=== PATIENT | female | born 1940 | race Caucasian/White ===

== ENCOUNTER 2016-07-21 08:21 | Outpatient (CLI) | payer MEDICARE, MEDICAID | END 2016-07-21 08:22 | disposition home or self-care (01) | DX: J45.909 Unspecified asthma, uncomplicated (principal); R06.09 Other forms of dyspnea ==

== ENCOUNTER 2016-07-22 09:56 | Outpatient (CLI) | payer MEDICARE, MEDICAID | END 2016-07-22 09:57 | disposition home or self-care (01) | DX: I50.9 Heart failure, unspecified (principal); I51.7 Cardiomegaly ==

== ENCOUNTER 2016-07-30 11:01 | Outpatient (CLI) | payer MEDICARE, MEDICAID | END 2016-07-30 11:02 | disposition home or self-care (01) | DX: I65.22 Occlusion and stenosis of left carotid artery (principal) ==

== ENCOUNTER 2016-08-17 | Outpatient (CLI) | payer MEDICARE, MEDICAID | END 2016-08-17 11:56 | disposition critical access hospital (66) | CPT/HCPCS: A0425; A0429 ==

== ENCOUNTER 2016-08-17 12:15 | Emergency (ER) | payer MEDICARE, MEDICAID | END 2016-08-17 14:43 | disposition home or self-care (01) | DX: S62.644A Nondisplaced fracture of proximal phalanx of right ring finger, initial encounter for closed fracture (principal); W01.0XXA Fall on same level from slipping, tripping and stumbling without subsequent striking against object, initial encounter; Y92.009 Unspecified place in unspecified non-institutional (private) residence as the place of occurrence of the external cause; Z79.82 Long term (current) use of aspirin; Z87.891 Personal history of nicotine dependence ==

== ENCOUNTER 2016-09-07 | Outpatient (CLI) | payer MEDICARE, MEDICAID | END 2016-09-07 10:16 | disposition critical access hospital (66) | DX: M25.561 Pain in right knee (principal) | CPT/HCPCS: A0425; A0429 ==

== ENCOUNTER 2016-09-07 10:17 | Emergency (ER) | payer MEDICARE, MEDICAID ==
[2016-09-07] MEDS ORDERED: ACETAMINOPHEN 325 MG TABLET PO STA (11:30)
[2016-09-07] MEDS ORDERED: ACETAMINOPHEN 325 MG TABLET PO ONE (11:39)
[2016-09-07] MEDS ORDERED: KETOROLAC 60 MG/2 ML VIAL IM STA (11:55)
[2016-09-07] MEDS ORDERED: KETOROLAC 30 MG/ML VIAL ONE (12:51)
== END 2016-09-07 14:04 | disposition home or self-care (01) ==
DX: M25.561 Pain in right knee (principal); I10 Essential (primary) hypertension; Z79.82 Long term (current) use of aspirin; Z87.891 Personal history of nicotine dependence

== ENCOUNTER 2016-09-08 | Outpatient (CLI) | payer MEDICARE, MEDICAID | END 2016-09-08 02:27 | disposition critical access hospital (66) | CPT/HCPCS: A0425; A0429 ==

== ENCOUNTER 2016-09-08 02:42 | Emergency (ER) | payer MEDICARE, MEDICAID ==
[2016-09-08] MEDS ORDERED: KETOROLAC 60 MG/2 ML VIAL IM STA ×2 (04:42→04:44)
[2016-09-08] MEDS ORDERED: KETOROLAC 30 MG/ML VIAL ONE (04:56)
== END 2016-09-08 10:05 | disposition home or self-care (01) ==
DX: S82.831A Other fracture of upper and lower end of right fibula, initial encounter for closed fracture (principal); S92.511A Displaced fracture of proximal phalanx of right lesser toe(s), initial encounter for closed fracture; W22.8XXA Striking against or struck by other objects, initial encounter; Y92.003 Bedroom of unspecified non-institutional (private) residence as the place of occurrence of the external cause; I10 Essential (primary) hypertension; E78.00 Pure hypercholesterolemia, unspecified; I25.10 Atherosclerotic heart disease of native coronary artery without angina pectoris; Z86.73 Personal history of transient ischemic attack (TIA), and cerebral infarction without residual deficits; F03.90 Unspecified dementia, unspecified severity, without behavioral disturbance, psychotic disturbance, mood disturbance, and anxiety; Z79.82 Long term (current) use of aspirin; Z87.891 Personal history of nicotine dependence

== ENCOUNTER 2016-09-10 16:15 | Outpatient (CLI) | payer MEDICARE, MEDICAID | END 2016-09-10 16:16 | disposition home or self-care (01) | DX: N39.0 Urinary tract infection, site not specified (principal) ==

== ENCOUNTER 2016-11-10 12:16 | Outpatient (CLI) | payer MEDICARE, MEDICAID | END 2016-11-10 12:17 | disposition critical access hospital (66) | DX: Z03.89 Encounter for observation for other suspected diseases and conditions ruled out (principal); Z79.01 Long term (current) use of anticoagulants; W01.10XA Fall on same level from slipping, tripping and stumbling with subsequent striking against unspecified object, initial encounter; Z91.81 History of falling; Y92.191 Dining room in other specified residential institution as the place of occurrence of the external cause | CPT/HCPCS: A0425; A0429 ==

== ENCOUNTER 2016-11-10 12:37 | Emergency (ER) | payer MEDICARE, MEDICAID ==
[2016-11-10] MEDS ORDERED: traMADol 50 MG TABLET PO STA (12:45)
[2016-11-10] MEDS ORDERED: traMADol 50 MG TABLET PO ONE (12:57)
== END 2016-11-10 14:13 | disposition home or self-care (01) ==
DX: S09.90XA Unspecified injury of head, initial encounter (principal); W01.10XA Fall on same level from slipping, tripping and stumbling with subsequent striking against unspecified object, initial encounter; Y92.9 Unspecified place or not applicable; G89.29 Other chronic pain; M79.604 Pain in right leg; Z86.73 Personal history of transient ischemic attack (TIA), and cerebral infarction without residual deficits; Z79.02 Long term (current) use of antithrombotics/antiplatelets; I10 Essential (primary) hypertension; I25.10 Atherosclerotic heart disease of native coronary artery without angina pectoris; J44.9 Chronic obstructive pulmonary disease, unspecified; F03.90 Unspecified dementia, unspecified severity, without behavioral disturbance, psychotic disturbance, mood disturbance, and anxiety; Z79.899 Other long term (current) drug therapy; Z79.82 Long term (current) use of aspirin; Z87.891 Personal history of nicotine dependence
CPT/HCPCS: 70450; 99283; A9270

== ENCOUNTER 2016-11-18 21:34 | Outpatient (CLI) | payer MEDICARE, MEDICAID | END 2016-11-18 21:35 | disposition home or self-care (01) | DX: M79.89 Other specified soft tissue disorders (principal) ==

== ENCOUNTER 2016-11-24 10:30 | Outpatient (CLI) | payer MEDICARE, MEDICAID ==
[2016-11-24 13:14] LABS: BASOPHILS # (AUTO) 0.1 10^3/uL (0.0-0.1); BASOPHILS % (AUTO) 0.3 %; EOSINOPHILS # (AUTO) 0.3 10^3/uL (0.0-0.7); EOSINOPHILS % (AUTO) 1.7 %; HCT - HEMATOCRIT 32.9 % (37.0-47.0); HGB - HEMOGLOBIN 10.8 g/dL (12.0-16.0); LYMPHOCYTES # (AUTO) 1.6 10^3/uL (1.5-3.5); LYMPHOCYTES % (AUTO) 10.5 %; MEAN CORPUSCULAR HEMOGLOBIN 29.1 pg (27.0-31.0); MEAN CORPUSCULAR HGB CONC 32.9 g/dL (32.0-36.0); MEAN CORPUSCULAR VOLUME 88.6 fL (81.0-99.0); MEAN PLATELET VOLUME 9.2 fL (7.9-10.8); MONOCYTES # (AUTO) 0.7 10^3/uL (0.0-1.0); MONOCYTES % (AUTO) 4.7 %; NEUTROPHILS # (AUTO) 12.4 10^3/uL (1.5-6.6); NEUTROPHILS % (AUTO) 82.8 %; RED BLOOD COUNT 3.71 10^6/uL (4.20-5.40); RED CELL DISTRIBUTION WIDTH 15.7 % (12.0-15.0)
[2016-11-24 13:38] LABS: ALBUMIN/GLOBULIN RATIO 1.6 (1.0-2.2); BILIRUBIN,TOTAL 0.6 mg/dL (0.2-1.0); CALCIUM 9.5 mg/dL (8.5-10.3); CREATININE 1.2 mg/dL (0.4-1.0); POTASSIUM 4.1 mmol/L (3.5-5.0); TOTAL PROTEIN 6.3 g/dL (6.7-8.2)
== END 2016-11-24 10:31 | disposition home or self-care (01) ==
LOC: LAB.WCP 10:30
PROVIDERS: ATTEND Family Medicine
DX: M79.89 Other specified soft tissue disorders (principal); R06.02 Shortness of breath
CPT/HCPCS: 36415; 80053; 83880; 85025

== ENCOUNTER 2017-01-03 10:40 | Outpatient (CLI) | payer MEDICARE, MEDICAID ==
[2017-01-03 14:25] LABS: BASOPHILS # (AUTO) 0.1 10^3/uL (0.0-0.1); BASOPHILS % (AUTO) 0.4 %; EOSINOPHILS # (AUTO) 0.3 10^3/uL (0.0-0.7); EOSINOPHILS % (AUTO) 2.1 %; HCT - HEMATOCRIT 34.1 % (37.0-47.0); LYMPHOCYTES # (AUTO) 1.6 10^3/uL (1.5-3.5); MEAN CORPUSCULAR HEMOGLOBIN 28.4 pg (27.0-31.0); MEAN CORPUSCULAR HGB CONC 32.1 g/dL (32.0-36.0); MEAN CORPUSCULAR VOLUME 88.2 fL (81.0-99.0); MEAN PLATELET VOLUME 8.5 fL (7.9-10.8); MONOCYTES # (AUTO) 0.8 10^3/uL (0.0-1.0); MONOCYTES % (AUTO) 5.3 %; NEUTROPHILS # (AUTO) 11.9 10^3/uL (1.5-6.6); NEUTROPHILS % (AUTO) 81.2 %; RED BLOOD COUNT 3.86 10^6/uL (4.20-5.40); RED CELL DISTRIBUTION WIDTH 15.5 % (12.0-15.0); UNCORRECTED WHITE BLOOD COUNT 14.7 x10^3/uL; WHITE BLOOD COUNT 14.7 x10^3/uL (4.8-10.8)
[2017-01-03 15:01] LABS: ALBUMIN/GLOBULIN RATIO 1.3 (1.0-2.2); BILIRUBIN,TOTAL 0.6 mg/dL (0.2-1.0); CALCIUM 9.6 mg/dL (8.5-10.3); CREATININE 1.3 mg/dL (0.4-1.0); POTASSIUM 4.3 mmol/L (3.5-5.0); TOTAL PROTEIN 6.7 g/dL (6.7-8.2)
== END 2017-01-03 10:41 | disposition home or self-care (01) ==
LOC: LAB.N 10:40
PROVIDERS: ATTEND Family Medicine
DX: F88 Other disorders of psychological development (principal)
CPT/HCPCS: 36415; 80053; 85025

== ENCOUNTER 2017-01-17 15:21 | Outpatient (CLI) | payer MEDICARE, MEDICAID ==
[2017-01-17 12:44] LABS: CALCIUM 9.4 mg/dL (8.5-10.3); CREATININE 1.4 mg/dL (0.4-1.0); POTASSIUM 4.1 mmol/L (3.5-5.0)
[2017-01-17 12:47] LABS: BASOPHILS # (AUTO) 0.1 10^3/uL (0.0-0.1); BASOPHILS % (AUTO) 0.5 %; EOSINOPHILS # (AUTO) 0.5 10^3/uL (0.0-0.7); EOSINOPHILS % (AUTO) 3.8 %; HCT - HEMATOCRIT 34.4 % (37.0-47.0); HGB - HEMOGLOBIN 11.1 g/dL (12.0-16.0); LYMPHOCYTES # (AUTO) 1.9 10^3/uL (1.5-3.5); LYMPHOCYTES % (AUTO) 14.6 %; MEAN CORPUSCULAR HEMOGLOBIN 28.2 pg (27.0-31.0); MEAN CORPUSCULAR HGB CONC 32.2 g/dL (32.0-36.0); MEAN CORPUSCULAR VOLUME 87.6 fL (81.0-99.0); MEAN PLATELET VOLUME 8.5 fL (7.9-10.8); MONOCYTES # (AUTO) 0.9 10^3/uL (0.0-1.0); MONOCYTES % (AUTO) 7.1 %; NEUTROPHILS # (AUTO) 9.6 10^3/uL (1.5-6.6); RED BLOOD COUNT 3.92 10^6/uL (4.20-5.40); RED CELL DISTRIBUTION WIDTH 15.3 % (12.0-15.0); UNCORRECTED WHITE BLOOD COUNT 12.9 x10^3/uL; WHITE BLOOD COUNT 12.9 x10^3/uL (4.8-10.8)
== END 2017-01-17 15:22 | disposition home or self-care (01) ==
LOC: LAB.WCP 15:21
PROVIDERS: ATTEND Family Medicine
DX: D72.829 Elevated white blood cell count, unspecified (principal)
CPT/HCPCS: 36415; 80048; 85025

== ENCOUNTER 2017-01-21 15:45 | Outpatient (CLI) | payer MEDICARE, MEDICAID | END 2017-01-21 15:46 | disposition home or self-care (01) | LOC: LAB.R 15:45 | PROVIDERS: ATTEND Family Medicine | DX: R30.0 Dysuria (principal) | CPT/HCPCS: 87077; 87086 ==

== ENCOUNTER 2017-02-08 02:24 | Outpatient (CLI) | payer MEDICARE, MEDICAID | END 2017-02-08 02:25 | disposition critical access hospital (66) | LOC: EMS 02:24 | PROVIDERS: ATTEND Surgery | DX: M25.511 Pain in right shoulder (principal) | CPT/HCPCS: A0425; A0429 ==

== ENCOUNTER 2017-02-08 02:42 | Emergency (ER) | payer MEDICARE, MEDICAID ==
--- NOTE | 2017-02-08 03:38 | ED Physician Documentation ---
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 She believes it is related to resting on the right elbow earlier today when she was working on a puzzle. Pain is worse with movement Review of Systems Skin: denies: Rash Musculoskeletal: reports: Joint pain. 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: Other : Incontinence, Frequency HEENT: Chronic hearing loss Psych: Depression, Anxiety Musculoskeletal: Chronic back pain Derm: Herpes zoster, Other - Past Surgical History Past Surgical History: Yes General: Cholecystectomy Cardiovascular: Angioplasty - Present Medications Home Medications: Ambulatory Orders Medication Instructions Recorded Confirmed Albuterol Sulfate 2.5 mg NEB TID 12/12/12 11/10/16 Aspirin [Aspirin EC] 81 mg PO DAILY 12/12/12 11/10/16 Clopidogrel [Plavix] 75 mg PO DAILY 12/12/12 11/10/16 Escitalopram [Lexapro] 10 mg PO DAILY 12/12/12 11/10/16 Furosemide 20 mg PO DAILY PM 12/12/12 11/10/16 Lovastatin 40 mg PO HS 12/12/12 11/10/16 Prednisolone Acetate 1 drop RIGHTEYE DAILY 12/12/12 11/10/16 Triamcinolone 0.1% Cream [Kenalog] 15 gm TOP DAILY 12/12/12 11/10/16 Ferrous Sulfate 1 tab PO DAILY 04/24/15 11/10/16 Ipratropium [Atrovent] 2 puffs INH QID 04/24/15 11/10/16 LORazepam [Ativan] 0.5 mg PO BID PRN 04/24/15 11/10/16 metroNIDAZOLE 0.75% GEL 1 gm TOP BID PRN 04/24/15 11/10/16 Furosemide 40 mg PO DAILY 08/17/16 11/10/16 Guaifenesin 200 mg PO PRN PRN 08/17/16 11/10/16 Losartan [Cozaar] 50 mg PO DAILY 08/17/16 11/10/16 Metoprolol Tartrate 50 mg PO BID 08/17/16 11/10/16 Mirtazapine 15 mg PO DAILY PM 08/17/16 11/10/16 Polyvinyl Alcohol [Artificial 15 ml OP BID 08/17/16 11/10/16 Tears] amLODIPine [Norvasc] 5 mg PO DAILY 08/17/16 11/10/16 oxyCODONE [Roxicodone] 5 mg PO PRN PRN 08/17/16 11/10/16 predniSONE [Deltasone] 10 mg PO [id number] 08/17/16 11/10/16 raNITIdine [Zantac] 150 mg PO DAILY 08/17/16 11/10/16 traMADol [Ultram] 50 mg PO Q4-6H PRN #15 tablet 11/10/16 - Allergies Allergies/Adverse Reactions: Allergies Allergy/AdvReac Type Severity Reaction Status Date / Time levofloxacin [From Levaquin] Allergy Severe Unknown Verified 04/27/15 12:24 - Social History Does the pt smoke?: No Smoking Status: Former smoker Does the pt drink ETOH?: No Does the pt have substance abuse?: No - POLST Patient has POLST: Yes PD ED PE NORMAL - Vitals Vital signs reviewed: Yes - General General: Alert and oriented X 3, Well developed/nourished, Other (appears anxious and uncomfortable due to pain) - Neck Neck: No bony TTP - Cardiac Cardiac: RRR, No murmur - Respiratory Respiratory: No respiratory distress, Other (bilateral expiratory wheezing) - Neuro Neuro: No motor deficit, No sensory deficit PD ED PE EXPANDED - Extremities Extremities: Tenderness, Limited ROM, Right shoulder. No: Swelling Results - Vitals Vitals: Vital Signs - 24 hr 02/08/17 02/08/17 02/08/17 02:45 04:01 06:50 Temperature 36.9 C Heart Rate 75 88 97 Respiratory 22 24 18 Rate Blood Pressure 163/82 H 133/48 H O2 Saturation 96 94 Oxygen O2 Source Room air - Rads (name of study) chest xray Radiology: Prelim report reviewed, See rad report right shoulder xrays Radiology: Prelim report reviewed, See rad report PD MEDICAL DECISION MAKING - ED course Complexity details: reviewed old records, reviewed results, re-evaluated patient , considered differential, d/w patient ED course: patient reported modest relief after percocet 5mg x 2 tablets and then oxycodone 5mg x 1 tablet. Patient's brother came to ED to drive patient home; patient's brother says that patient frequently has pain c/o with goal of receiving narcotic medications, and he requests that patient not receive narcotic/opiate medications in the future for subjective pain c/o Departure - Departure Disposition: 01 Home, Self Care Clinical Impression: Bursitis Condition: Good Instructions: ED Bursitis Follow-Up: Gurpreet Rubio MD [Primary Care Provider] - Discharge Date/Time: 02/08/17 07:43
[2017-02-08] MEDS ORDERED: IBUPROFEN 400 MG TABLET PO STA (03:48)
[2017-02-08] MEDS ORDERED: oxyCOD/ACETAMIN 5 MG/325 MG TABLET PO STA ×2 (03:48→04:57)
[2017-02-08] MEDS ORDERED: IPRATROPIUM/ALBUTEROL 3 ML NEB INH STA (03:49)
[2017-02-08] MEDS ORDERED: oxyCOD/ACETAMIN 5 MG/325 MG TABLET PO ONE ×2 (03:52→04:58)
[2017-02-08] MEDS ORDERED: IBUPROFEN 400 MG TABLET PO ONE (03:53)
[2017-02-08] MEDS ORDERED: IPRATROPIUM/ALBUTEROL 3 ML NEB INH ONE (03:57)
--- NOTE | 2017-02-08 05:08 | XRAY Preliminary Report ---
Exam: XR Shoulder 3 View RT IMPRESSION: Possible old injury versus subchondral cyst formation within the greater tuberosity. Othe rwise no definite acute abnormality. [facility] SITE ID: [id number]
--- NOTE | 2017-02-08 05:11 | XRAY Report ---
EXAM: RIGHT SHOULDER RADIOGRAPHY EXAM DATE: 02/08/2017 04:54 AM. CLINICAL HISTORY: Shoulder pain. COMPARISON: None. TECHNIQUE: 3 views. FINDINGS: Bones: There is lucency within the greater tuberosity of the right humerus. This may be a sequela of old injury. No definite acute fracture. Joints: No dislocation. Moderate to severe degenerative change about the shoulder. Chronic calcific r otator cuff tendinitis. Soft tissues: The visualized hemithorax is unremarkable. No soft tissue swelling. IMPRESSION: Possible old injury versus subchondral cyst formation within the greater tuberosity. Othe rwise no definite acute abnormality. [facility] Referring Provider Line: [phone] SITE ID: [id number]
--- NOTE | 2017-02-08 05:11 | XRAY Preliminary Report ---
Exam: XR Chest 2 View PA/LAT IMPRESSION: Mild peripheral interstitial lung disease. [facility] SITE ID: [id number]
--- NOTE | 2017-02-08 05:13 | XRAY Report ---
EXAM: CHEST RADIOGRAPHY EXAM DATE: 02/08/2017 04:53 AM. CLINICAL HISTORY: Dyspnea. COMPARISON: 07/02/2016. TECHNIQUE: 2 views. FINDINGS: Lungs/Pleura: No significant consolidation, effusion, or definite pneumothorax. Mild peripheral retic ular interstitial opacity. Bilateral mid as well as lung base region pleural thickening is stable. Mediastinum: Heart and mediastinal contours are unremarkable. Other: Moderate to severe degenerative change about the shoulder bilaterally. Surgical clips are note d at the right aspect of the neck. IMPRESSION: Mild peripheral interstitial lung disease. [facility] Referring Provider Line: [phone] SITE ID: [id number]
[2017-02-08] MEDS ORDERED: oxyCODONE 5 MG TABLET PO STA (05:55)
[2017-02-08] MEDS ORDERED: oxyCODONE 5 MG TABLET ONE (05:59)
[2017-02-08 06:51] VITALS: BP 133/48
== END 2017-02-08 07:43 | disposition home or self-care (01) ==
LOC: EDBD → EDUNIT# → SUPCPDRO 02:42 → ED 02:42
DX: M75.51 Bursitis of right shoulder (principal); I10 Essential (primary) hypertension; E78.00 Pure hypercholesterolemia, unspecified; I25.10 Atherosclerotic heart disease of native coronary artery without angina pectoris; J44.9 Chronic obstructive pulmonary disease, unspecified; J45.909 Unspecified asthma, uncomplicated; F03.90 Unspecified dementia, unspecified severity, without behavioral disturbance, psychotic disturbance, mood disturbance, and anxiety; Z86.73 Personal history of transient ischemic attack (TIA), and cerebral infarction without residual deficits; K21.9 Gastro-esophageal reflux disease without esophagitis; Z79.82 Long term (current) use of aspirin; Z87.891 Personal history of nicotine dependence
CPT/HCPCS: 71020; 73030; 94640; 99283; A9270; J7620

== ENCOUNTER 2017-02-21 08:18 | Outpatient (CLI) | payer MEDICARE, MEDICAID ==
[2017-02-21] MEDS ORDERED: BARIUM SULFATE 454 GM TUBE PO ONE (10:02)
[2017-02-21] MEDS ORDERED: BARIUM SULFATE 148 GM POWDER PO ONE (10:02)
--- NOTE | 2017-02-21 11:53 | XRAY Report ---
MODIFIED BARIUM SWALLOW: 02/21/2017 CLINICAL INDICATION: Daily choking. FINDINGS: Various consistencies of barium were prepared and administered in conjunction with speech pathology. There was no evidence of penetration or aspiration with any administered consistency. Plea se also refer to full report from speech pathology for further findings. IMPRESSION: NO EVIDENCE OF PENETRATION OR ASPIRATION. FLUOROSCOPY TIME: 1 MINUTE 14 SECONDS; 1 SPOT IMAGE OBTAINED (CINE FLUOROSCOPY RECORDED). JOB #: [id number] EXT JOB #:[id number]
== END 2017-02-21 08:19 | disposition home or self-care (01) ==
LOC: DI 08:18
PROVIDERS: ATTEND Family Medicine
DX: I69.391 Dysphagia following cerebral infarction (principal)
CPT/HCPCS: 74230; 92611; G8996; G8997; G8998

== ENCOUNTER 2017-06-16 11:09 | Outpatient (CLI) | payer MEDICARE, MEDICAID ==
--- NOTE | 2017-06-16 17:48 | XRAY Report ---
THREE VIEW RIGHT FOOT: 06/16/2017 CLINICAL INDICATION: Foot pain. AP, lateral, oblique views of the right foot are compared to previous films of 10/21/2016. Osteoarth ritic changes are stable. The fractures of the proximal phalanges of the 4th and 5th toes have heale d. No acute fracture or dislocation is appreciated. No radiopaque foreign body is seen in the soft tissues. IMPRESSION: STABLE OSTEOARTHRITIS. HEALED FRACTURES OF THE PROXIMAL PHALANGES OF THE RIGHT 4TH AND 5TH TOES. NO ACUTE FRACTURE IS IDENTIFIED. JOB #: [id number] EXT JOB #:[id number]
== END 2017-06-16 11:10 | disposition home or self-care (01) ==
LOC: DI 11:09
PROVIDERS: ATTEND Family Medicine
DX: M19.071 Primary osteoarthritis, right ankle and foot (principal)

== ENCOUNTER 2017-08-02 09:22 | Outpatient (CLI) | payer MEDICARE, MEDICAID | END 2017-08-02 09:23 | disposition critical access hospital (66) | LOC: EMS 09:22 | PROVIDERS: ATTEND Surgery | DX: R06.02 Shortness of breath (principal) | CPT/HCPCS: A0425; A0427 ==

== ENCOUNTER 2017-08-02 09:40 | Inpatient (IN) | payer MEDICARE, MEDICAID ==
--- NOTE | 2017-08-02 09:51 | ED Physician Documentation ---
History of Present Illness - Stated complaint Stated Complaint: SOA - Additonal information Additional information: hx from pt and EMS and office notes 76 female home O2 dependent CPD fever productive cough NVD for 1 days went to office hypoxic and tachypneic given a neb EMS also gave a neb and solumedrol Review of Systems Constitutional: reports: Fever, Chills Respiratory: reports: Dyspnea, Cough GI: reports: Vomiting, Diarrhea Musculoskeletal: denies: Extremity pain, Extremity swelling Endocrine: denies: Easy bruising / bleeding Immunocompromised: denies: Immunocompromised PD PAST MEDICAL HISTORY - Past Medical History Cardiovascular: Hypertension, High cholesterol, Coronary artery disease Respiratory: Asthma, COPD Neuro: Dementia, CVA 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 : Incontinence, Frequency HEENT: Chronic hearing loss Psych: Depression, Anxiety Musculoskeletal: Chronic back pain Derm: Herpes zoster, Other - Past Surgical History Past Surgical History: Yes General: Cholecystectomy Cardiovascular: Angioplasty - Present Medications Home Medications: Ambulatory Orders Medication Instructions Recorded Confirmed Albuterol Sulfate 2.5 mg NEB TID 12/12/12 08/02/17 Aspirin [Aspirin EC] 81 mg PO DAILY 12/12/12 08/02/17 Clopidogrel [Plavix] 75 mg PO DAILY 12/12/12 08/02/17 Escitalopram [Lexapro] 10 mg PO DAILY 12/12/12 08/02/17 Furosemide 20 mg PO DAILY PM 12/12/12 08/02/17 Lovastatin 40 mg PO HS 12/12/12 08/02/17 Prednisolone Acetate 1 drop RIGHTEYE DAILY 12/12/12 08/02/17 Triamcinolone 0.1% Cream [Kenalog] 15 gm TOP DAILY 12/12/12 08/02/17 Ferrous Sulfate 1 tab PO DAILY 04/24/15 08/02/17 Ipratropium [Atrovent] 2 puffs INH QID 04/24/15 08/02/17 LORazepam [Ativan] 0.5 mg PO BID PRN 04/24/15 08/02/17 Furosemide 40 mg PO DAILY 08/17/16 08/02/17 Losartan [Cozaar] 50 mg PO DAILY 08/17/16 08/02/17 Metoprolol Tartrate 50 mg PO BID 08/17/16 08/02/17 Mirtazapine 15 mg PO DAILY PM 01/31/17 01/16/18 Polyvinyl Alcohol [Artificial 15 ml OP BID 08/17/16 08/02/17 Tears] guaiFENesin [Guaifenesin] 200 mg PO PRN PRN 08/17/16 08/02/17 oxyCODONE [Roxicodone] 5 mg PO PRN PRN 08/17/16 08/02/17 predniSONE [Deltasone] 10 mg PO [id number] 08/17/16 08/02/17 raNITIdine [Zantac] 150 mg PO DAILY 08/17/16 08/02/17 - Allergies Allergies/Adverse Reactions: Allergies Allergy/AdvReac Type Severity Reaction Status Date / Time levofloxacin [From Levaquin] Allergy Severe Unknown Verified 04/27/15 12:24 - Social History Does the pt smoke?: No Smoking Status: Former smoker Does the pt drink ETOH?: No Does the pt have substance abuse?: No - POLST Patient has POLST: Yes PD ED PE NORMAL - Vitals Vital signs reviewed: Yes - General General: Alert and oriented X 3 (just very ALGAAC[place]) - HEENT HEENT: Atraumatic - Neck Neck: Supple, no meningeal sign - Cardiac Cardiac: RRR (little tachy) - Respiratory Respiratory: Other (misha wheezing) - Abdomen Abdomen: Soft, Non tender - Derm Derm: Normal color - Extremities Extremities: No edema - Neuro Neuro: Alert and oriented X 3 Results - Vitals Vitals: Vital Signs - 24 hr 08/02/17 08/02/17 08/02/17 09:45 10:10 10:48 Temperature 36.9 C 36.7 C Heart Rate 83 93 91 Respiratory 20 24 20 Rate Blood Pressure 146/62 H 147/65 H O2 Saturation 98 97 08/02/17 11:43 Temperature Heart Rate 88 Respiratory 18 Rate Blood Pressure 150/58 H O2 Saturation 97 Oxygen O2 Source Nasal cannula Oxygen Flow Rate 1 - Labs Labs: Laboratory Tests 08/02/17 08/02/17 08/02/17 09:45 10:04 10:04 WBC 8.9 RBC 4.40 Hgb 12.6 Hct 40.1 MCV 91.0 MCH 28.5 MCHC 31.3 L RDW 15.9 H Plt Count 191 MPV 8.9 Neut # 6.1 Lymph # 1.8 [place] # 0.6 Eos # 0.0 Baso # 0.4 H Absolute Nucleated RBC 0.01 Nucleated RBC % 0.1 Sodium 137 Potassium 3.7 Chloride 100 L Carbon Dioxide 25 Anion Gap 12.0 BUN 36 H Creatinine 1.4 H Estimated GFR (MDRD) 37 L Glucose 122 H Lactic Acid Calcium 9.2 Influenza A (Rapid) Negative Influenza B (Rapid) Negative Influenza Types A,B Ag - 08/02/17 10:04 WBC RBC Hgb Hct MCV MCH MCHC RDW Plt Count MPV Neut # Lymph # [place] # Eos # Baso # Absolute Nucleated RBC Nucleated RBC % Sodium Potassium Chloride Carbon Dioxide Anion Gap BUN Creatinine Estimated GFR (MDRD) Glucose Lactic Acid 1.0 Calcium Influenza A (Rapid) Influenza B (Rapid) Influenza Types A,B Ag - Rads (name of study) CXR Radiology: See rad report (neg no acute) PD MEDICAL DECISION MAKING - ED course ED course: neg flu, no pna on CXR but severe COPD exac despite solumedrol and 5 nebs (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
[2017-08-02] MEDS ORDERED: ALBUTEROL NEB 2.5 MG/3 ML INH STA (09:52)
[2017-08-02 10:15] LABS: BASOPHILS # (AUTO) 0.4 10^3/uL (0.0-0.1); EOSINOPHILS % (AUTO) 0.3 %; HGB - HEMOGLOBIN 12.6 g/dL (12.0-16.0); LYMPHOCYTES # (AUTO) 1.8 10^3/uL (1.5-3.5); LYMPHOCYTES % (AUTO) 20.3 %; MEAN CORPUSCULAR HEMOGLOBIN 28.5 pg (27.0-31.0); MEAN CORPUSCULAR HGB CONC 31.3 g/dL (32.0-36.0); MEAN PLATELET VOLUME 8.9 fL (7.9-10.8); MONOCYTES # (AUTO) 0.6 10^3/uL (0.0-1.0); MONOCYTES % (AUTO) 6.9 %; NEUTROPHILS # (AUTO) 6.1 10^3/uL (1.5-6.6); NEUTROPHILS % (AUTO) 68.5 %; PLT - PLATELET COUNT 191 10^3/uL (130-450); RED CELL DISTRIBUTION WIDTH 15.9 % (12.0-15.0); WHITE BLOOD COUNT 8.9 x10^3/uL (4.8-10.8)
--- NOTE | 2017-08-02 10:17 | XRAY Report ---
EXAM: CHEST RADIOGRAPHY EXAM DATE: 08/02/2017 10:06 AM. CLINICAL HISTORY: Ams. COMPARISON: 02/08/2017 TECHNIQUE: 1 view. FINDINGS: Lungs/Pleura: No focal opacities evident. No pleural effusion. Mild chronic pleural thickening bilate rally unchanged. No pneumothorax. Faint chronic increase in interstitial markings and faint increased density left base stable. Mediastinum: Within exam limitations, the cardiomediastinal contour is normal. Calcified mediastinal lymph nodes. Other: Surgical clips right neck degenerative change in the shoulders. IMPRESSION: Stable chronic changes without superimposed acute findings. [facility] Referring Provider Line: [phone] SITE ID: [id number]
[2017-08-02 10:24] LABS: CALCIUM 9.2 mg/dL (8.5-10.3); CREATININE 1.4 mg/dL (0.4-1.0)
[2017-08-02] MEDS ORDERED: SODIUM CHLORIDE FLUSH 0.9% 10 ML SYRINGE IVP PRN (12:34)
[2017-08-02] MEDS: SODIUM CHLORIDE FLUSH 0.9% 10 ML SYRINGE IVP SCH ×2 (14:24→21:42)
--- NOTE | 2017-08-02 15:47 | HISTORY & PHYSICAL EXAMINATION ---
Chief Complaint - Chief Complaint Chief Complaint: shortness of breath History of Present Illness - Admitted From Admitted From:: ED - History Obtained From Records Reviewed: yes History obtained from: chart review, patient Exam Limitations: hearing loss, dementia. - History of Present Illness HPI Comment/Other: Patti Delgado is a 76-year old with a past medical history of HTN, hyperlipidemia, CAD, asthma, COPD, schizophrenia, bi-polar disorder, dementia, CVA ~20years ago , GERD, urinary incontinence, chronic hearing loss, depression, anxiety, chronic back pain, history of herpes zoster, and a history of smoking. Patient lives at [facility], and has not been oxygen dependent. Patient was seen at her PCP office for fevers, productive cough and nausea, vomiting and diarrhea that started a day ago. She was sent directly from the clinic to our ED and was found to be hypoxic, given nebs, steroids, and a chest x-ray in the ED. Patient will be admitted to I/P for further treatment of her COPD exacerbation including IV steroids, gentle IVFs, and nebulizers. Brother, Davie called, updated and was helpful in obtaining accurate history information. 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: Other : reports: Incontinence, Frequency HEENT: reports: Chronic vision loss, Chronic hearing loss Psych: reports: Depression, Anxiety, Bipolar disorder, Schizophrenia Musculoskeletal: reports: Chronic back pain Derm: reports: Herpes zoster, Other MRSA Hx?: No Other Past Medical History: Hx of narcotic addiction - Past Surgical History General: reports: Cholecystectomy Cardiovascular: reports: Angioplasty - POLST Patient has POLST: Yes Meds/Allgy - Home Medications Home Medications: Ambulatory Orders Medication Instructions Recorded Confirmed Clopidogrel [Plavix] 75 mg PO DAILY 12/12/12 08/02/17 Escitalopram [Lexapro] 10 mg PO DAILY 12/12/12 08/02/17 Furosemide 40 mg PO DAILY 12/12/12 08/02/17 Lovastatin 40 mg PO DAILY 12/12/12 08/02/17 Prednisolone Acetate 1 drop RIGHTEYE DAILY 12/12/12 08/02/17 Triamcinolone 0.1% Cream [Kenalog] 1 applic TOP DAILY 12/12/12 08/02/17 LORazepam [Ativan] 0.5 mg PO BID 04/24/15 08/02/17 Losartan [Cozaar] 50 mg PO QPM 08/17/16 08/02/17 Metoprolol Tartrate 50 mg PO BID 08/17/16 08/02/17 Mirtazapine 7.5 mg PO DAILY PM 08/17/16 08/02/17 guaiFENesin [Guaifenesin] 200 mg PO Q6H PRN 08/17/16 08/02/17 oxyCODONE [Roxicodone] 5 mg PO BID PRN 08/17/16 08/02/17 raNITIdine [Zantac] 150 mg PO DAILY 08/17/16 08/02/17 Acetaminophen 650 mg PO Q6H PRN 08/02/17 08/02/17 Albuterol Sulf [Ventolin Hfa 2 puffs INH Q3H PRN 08/02/17 08/02/17 Inhaler] Aspirin 81 mg PO DAILY 08/02/17 08/02/17 Budesonide [Pulmicort Flexhaler] 2 puffs INH BID 08/02/17 08/02/17 Cholecalciferol (Vitamin D3) 2,000 units PO DAILY 08/02/17 08/02/17 [Vitamin D3] Ipratropium/Albuterol [Duoneb] 3 ml INH QID 08/02/17 08/02/17 Polyvinyl Alcohol [Artificial 1 drops EACHEYE BID 08/02/17 08/02/17 Tears] predniSONE [Prednisone] 10 mg PO DAILY 08/02/17 08/02/17 - Allergies Allergies/Adverse Reactions: Allergies Allergy/AdvReac Type Severity Reaction Status Date / Time levofloxacin [From Levaquin] Allergy Severe Unknown Verified 04/27/15 12:24 Review of Systems - Constitutional Constitutional: reports: Weakness - Eyes Eyes: reports: Vision loss, Corrective lenses - Ears, Nose & Throat Ears, Nose & Throat: reports: Hearing loss, Hearing aids - Cardiovascular Cariovascular: reports: Edema (increased abdominal edema per patient.) - Respiratory Respiratory: reports: Cough, Sputum production, Wheezing, Orthopnea, SOB at rest , SOB with exertion - Gastrointestinal Gastrointestinal: reports: Abdominal distention, Reflux/heartburn, Poor appetite - Genitourinary Genitourinary: reports: Dysuria, Frequency, Urgency, Incontinence, Nocturia - Musculoskeletal Musculoskeletal: reports: Joint swelling - Integumentary Integumentary: reports: Dryness - Neurological Neurological: reports: General weakness, Memory problems, Pre-existing deficit - Psychiatric Psychiatric: reports: Depression, Other (schizo-affective disorder, bi-polar.) - All Other Systems All Other Systems: reports: Reviewed and negative Exam - Vital Signs Reviewed Vital Signs: Yes Vital Signs: Vital Signs x48h Temp Pulse Pulse Resp BP BP Pulse Ox 08/02/17 15:21 36.9 C 88 16 144/58 H 96 08/02/17 14:00 37.0 C 85 18 149/63 H 97 08/02/17 12:52 86 18 142/67 H 97 - Physical Exam General Appearance: positive: No acute distress, Alert ENT: positive: ENT inspection nml Neck: positive: Nml inspection, Thyroid nml, No JVD, Trachea midline Respiratory: positive: Chest non-tender, Wheezes, Rales Cardiovascular: positive: Regular rate & rhythm, No murmur, No gallop Peripheral Pulses: positive: 1+ Abdomen: positive: Non-tender, Nml bowel sounds, Hepatomegaly, Other (rounded, obese.) Back: positive: Nml inspection Skin: positive: No rash, Warm, Dry, Pallor Extremities: positive: Non-tender, Full ROM, Nml appearance, No pedal edema Neurologic/Psychiatric: positive: Disoriented to time, Weakness, Sensory loss, Depressed mood/affect Reflexes: Bicep (R): 3+, Bicep (L): 3+ Conclusion/Plan - Problem List (1) Acute exacerbation of COPD with asthma Conclusion/Plan: Patient is prescribed Duo-nebs QID per nebulizer and a Atrovent inhaler at her assisted living. She has a long history of lung disease and is typically well managed. She is not oxygen dependent. She was seen in the clinic prior to admission for worsening SOB with a productive cough. Chest x-ray did not show infiltrates, but will use Azithromycin PO as a preventative. Plan: Treat with duo-nebs, IV steroids, and attempt to obtain a sputum sample. (2) Dorsalgia, unspecified Conclusion/Plan: Patient has a long standing history of low back pain and is prescribed oxycodone and ativan at home. Per phone interview with brother, Davie, patient does not get up much at her assisted living due to staffing and possibly over- eats. Plan: Encourage ambulation and give home meds. (3) Dementia without behavioral disturbance Conclusion/Plan: Patient has a history of this and is likely a result of her CVA deficit. She also suffers from other mental illnesses such as schizo-affective disorder and bi-polar. Plan: Continue on home medications; mirtazapine, escitalopram, and ativan. Qualifiers: Alzheimer's disease onset: unspecified onset (4) Hearing loss of both ears Conclusion/Plan: Patient can be extremely difficult to communicate with, although she clearly lets you know if she cannot hear the questions being asked. Use of visual aides and phone interview with her brother helped in completing this admission. Plan: Use hearing aides, and visual dry erase board when possible. Qualifiers: Hearing loss type: unspecified Qualified Code(s): H91.93 - Unspecified hearing loss, bilateral - Lab Results Lab results reviewed: Yes Fish Bones: 08/02/17 10:04 08/02/17 10:04 - Diagnostic Imaging Results Diagnostic Imaging Results: positive: Prelim report reviewed - EKG Results EKG Interpreted Independently: Yes - Other Other Results/Comments: DVT prophylaxis: SCDs and lovenox. Code status: DNR. Core Measures - Anticipated LOS I expect patient to be DC'd or transferred within 96 hours.: Yes - DVT/VTE - Prophylaxis VTE/DVT Device ordered at admit?: Yes VTE/DVT Prophylaxis med ordered at admit?: Yes - Stroke - Rehab Assessment Rehab services assessment to be ordered?: Yes - AMI - Statin at Admit Aspirin Prescribed on Admit: Yes
[2017-08-02] MEDS ORDERED: oxyCODONE 5 MG TABLET PO PRN (19:53)
[2017-08-02] MEDS ORDERED: ACETAMINOPHEN 325 MG TABLET PO PRN (19:53)
[2017-08-02] MEDS ORDERED: IPRATROPIUM/ALBUTEROL 3 ML NEB INH PRN (20:00)
[2017-08-02] MEDS: IPRATROPIUM/ALBUTEROL 3 ML NEB INH SCH (20:39)
[2017-08-02] MEDS ORDERED: SODIUM CHLORIDE 0.9% 1,000 ML IV SCH (21:00)
[2017-08-02] MEDS ORDERED: BUDESONIDE 180MCG FLEXHALER INH SCH (21:00)
[2017-08-02] MEDS ORDERED: ENOXAPARIN 40 MG/0.4 ML SYRINGE SUBQ SCH (21:00)
[2017-08-02] MEDS: methylPREDNISolone SUCCINATE 125 MG/2 ML VIAL IVP SCH ×2 (21:44→22:00)
[2017-08-02] MEDS: ENOXAPARIN 30 MG/0.3 ML SYRINGE SUBQ SCH (21:44)
[2017-08-02] MEDS: LORazepam 0.5 MG TABLET PO SCH (21:44)
[2017-08-02] MEDS: MIRTAZAPINE 15 MG TABLET PO SCH (21:44)
[2017-08-02] MEDS: METOPROLOL TARTRATE 50 MG TABLET PO SCH (21:45)
[2017-08-02] MEDS: LOSARTAN 50 MG TABLET PO SCH (21:45)
[2017-08-03 05:01] LABS: BASOPHILS % (AUTO) 0.7 %; HGB - HEMOGLOBIN 12.4 g/dL (12.0-16.0); LYMPHOCYTES # (AUTO) 0.7 10^3/uL (1.5-3.5); LYMPHOCYTES % (AUTO) 11.2 %; MEAN CORPUSCULAR HEMOGLOBIN 29.1 pg (27.0-31.0); MEAN CORPUSCULAR HGB CONC 32.8 g/dL (32.0-36.0); MEAN CORPUSCULAR VOLUME 88.5 fL (81.0-99.0); MEAN PLATELET VOLUME 8.5 fL (7.9-10.8); MONOCYTES # (AUTO) 0.2 10^3/uL (0.0-1.0); MONOCYTES % (AUTO) 3.7 %; NEUTROPHILS % (AUTO) 84.4 %; PLT - PLATELET COUNT 163 10^3/uL (130-450); RED BLOOD COUNT 4.28 10^6/uL (4.20-5.40); RED CELL DISTRIBUTION WIDTH 15.2 % (12.0-15.0); WHITE BLOOD COUNT 5.9 x10^3/uL (4.8-10.8)
[2017-08-03 05:15] LABS: ALBUMIN 3.3 g/dL (3.2-5.5); ALBUMIN/GLOBULIN RATIO 1.2 (1.0-2.2); BILIRUBIN,TOTAL 0.4 mg/dL (0.2-1.0); CALCIUM 8.7 mg/dL (8.5-10.3); CREATININE 1.5 mg/dL (0.4-1.0); MAGNESIUM 1.8 mg/dL (1.7-2.8); PHOSPHORUS 3.8 mg/dL (2.5-4.6); TOTAL PROTEIN 6.1 g/dL (6.7-8.2)
[2017-08-03] MEDS: methylPREDNISolone SUCCINATE 125 MG/2 ML VIAL IVP SCH (05:25)
[2017-08-03] MEDS: SODIUM CHLORIDE FLUSH 0.9% 10 ML SYRINGE IVP SCH ×3 (05:26→20:33)
[2017-08-03] MEDS: CLOPIDOGREL 75 MG TABLET PO SCH (08:23)
[2017-08-03] MEDS: ASPIRIN CHEW 81 MG TABLET PO SCH (08:23)
[2017-08-03] MEDS: METOPROLOL TARTRATE 50 MG TABLET PO SCH ×2 (08:23→20:33)
[2017-08-03] MEDS: ESCITALOPRAM 10 MG TABLET PO SCH (08:23)
[2017-08-03] MEDS: LORazepam 0.5 MG TABLET PO SCH ×2 (08:23→20:34)
[2017-08-03] MEDS: POLYETHYLENE GLYCOL 3350 17 GM PACKET PO SCH (08:24)
--- NOTE | 2017-08-03 08:45 | PROVIDER PROGRESS NOTE ---
Subjective - Prog Note Date Prog Note Date: 08/03/17 Prog Note Time: 08:45 - Subjective Pt reports feeling: No change Subjective: Patti asks for her dentures. She denies SOB, chest pain, N/V or a new cough. She admits to an easier effort in breathing. Current Medications - Current Medications Current Medications: Active Medications Acetaminophen (Tylenol) 650 mg PO Q6H PRN PRN Reason: PAIN/FEVER Last Admin: 08/03/17 20:34 Dose: 650 mg Albuterol/Ipratropium (Duoneb) 3 ml INH RTQID [facility] Last Admin: 08/04/17 07:47 Dose: 3 ml Albuterol/Ipratropium (Duoneb) 3 ml INH Q4HR PRN PRN Reason: Wheezing Aspirin ([place] Aspirin) 81 mg PO DAILY [facility] Last Admin: 08/03/17 08:23 Dose: 81 mg Budesonide (Pulmicort) 0.5 mg INH RTBID [facility] Last Admin: 08/04/17 07:47 Dose: 0.5 mg Clopidogrel Bisulfate (Plavix) 75 mg PO DAILY [facility] Last Admin: 08/03/17 08:23 Dose: 75 mg Enoxaparin Sodium (Lovenox) 30 mg SUBQ DAILY@2100 [facility] Last Admin: 08/03/17 20:31 Dose: 30 mg Escitalopram Oxalate (Lexapro) 10 mg PO DAILY [facility] Last Admin: 08/03/17 08:23 Dose: 10 mg Lorazepam (Ativan) 0.5 mg PO BID [facility] Last Admin: 08/03/17 20:34 Dose: 0.5 mg Losartan Potassium (Cozaar) 50 mg PO QPM [facility] Last Admin: 08/03/17 20:33 Dose: 50 mg Methylprednisolone (Solu-Medrol (40mg Vial)) 40 mg IVP BID [facility] Last Admin: 08/03/17 20:32 Dose: 40 mg Metoprolol Tartrate (Lopressor) 50 mg PO BID [facility] Last Admin: 08/03/17 20:33 Dose: 50 mg Mirtazapine (Remeron) 7.5 mg PO QPM [facility] Last Admin: 08/03/17 20:35 Dose: 7.5 mg Oxycodone HCl (Roxicodone) 5 mg PO BID PRN PRN Reason: PAIN Polyethylene Glycol (Miralax) 17 gm PO DAILY [facility] Last Admin: 08/03/17 08:24 Dose: Not Given Prednisolone (Pred Forte 1% Ophth Drops) 1 drops RIGHTEYE DAILY [facility] Last Admin: 08/03/17 11:00 Dose: 1 drops Sodium Chloride (Normal Saline Flush 0.9%) 10 ml IVP PRN PRN PRN Reason: NEEDED PER PROVIDER ORDERS Sodium Chloride (Normal Saline Flush 0.9%) 10 ml IVP Q8HR [facility] Last Admin: 08/04/17 05:55 Dose: 10 ml Clopidogrel [Plavix] 75 mg PO DAILY 12/12/12 Escitalopram [Lexapro] 10 mg PO DAILY 12/12/12 Furosemide 40 mg PO DAILY 12/12/12 Lovastatin 40 mg PO DAILY 12/12/12 Prednisolone Acetate 1 drop RIGHTEYE DAILY 12/12/12 Triamcinolone 0.1% Cream [Kenalog] 1 applic TOP DAILY 12/12/12 LORazepam [Ativan] 0.5 mg PO BID 04/24/15 Losartan [Cozaar] 50 mg PO QPM 08/17/16 Metoprolol Tartrate 50 mg PO BID 08/17/16 Mirtazapine 7.5 mg PO DAILY PM 08/17/16 guaiFENesin [Guaifenesin] 200 mg PO Q6H PRN 08/17/16 oxyCODONE [Roxicodone] 5 mg PO BID PRN 08/17/16 raNITIdine [Zantac] 150 mg PO DAILY 08/17/16 Acetaminophen 650 mg PO Q6H PRN 08/02/17 Albuterol Sulf [Ventolin Hfa Inhaler] 2 puffs INH Q3H PRN 08/02/17 Aspirin 81 mg PO DAILY 08/02/17 Budesonide [Pulmicort Flexhaler] 2 puffs INH BID 08/02/17 Cholecalciferol (Vitamin D3) [Vitamin D3] 2,000 units PO DAILY 08/02/17 Ipratropium/Albuterol [Duoneb] 3 ml INH QID 08/02/17 Polyvinyl Alcohol [Artificial Tears] 1 drops EACHEYE BID 08/02/17 predniSONE [Prednisone] 10 mg PO DAILY 08/02/17 Objective - Vital Signs/Intake & Output Reviewed Vital Signs: Yes Vital Signs: Vital Signs x48h Temp Pulse Resp BP BP Pulse Ox 08/03/17 08:23 200/85 H 08/03/17 07:59 36.8 C 68 18 200/85 H 97 Intake & Output: Intake & Output 07/31/17 08/01/17 08/02/17 08/03/17 23:59 23:59 23:59 23:59 Intake Total 570 300 Balance 570 300 - Objective General Appearance: positive: No acute distress, Anxious Eyes Bilateral: positive: Normal inspection Eyes: OU Conjunctivae pale, OU Scleral icterus ENT: positive: ENT inspection nml, Dry mucous membranes Neck: positive: Nml inspection, Thyroid nml Respiratory: positive: Chest non-tender, No respiratory distress, Wheezes, Other (diminished.) Cardiovascular: positive: Regular rate & rhythm, No gallop, Systolic murmur Peripheral Pulses: 2+ Radial (R), 2+ Radial (L) Abdomen: positive: Non-tender, No organomegaly, Nml bowel sounds, No distention , Other (rounded, soft) Back: positive: Nml inspection Skin: positive: No rash, Warm, Dry Extremities: positive: Non-tender, Full ROM, Pedal edema Neurologic/Psychiatric: positive: CN's nml (2-12), Motor nml, Sensation nml, Weakness, Depressed mood/affect, Other (baseline deficit) Reflexes: Bicep (R): 1+, Bicep (L): 1+ - Lab Results Fish Bones: 08/03/17 04:47 08/04/17 05:14 Other Labs: Lab Results x24hrs 08/03/17 08/03/17 08/03/17 Range/Units 04:47 04:47 04:47 WBC 5.9 (4.8-10.8) x10^3/uL RBC 4.28 (4.20-5.40) 10^6/uL Hgb 12.4 (12.0-16.0) g/dL Hct 37.9 (37.0-47.0) % MCV 88.5 (81.0-99.0) fL MCH 29.1 (27.0-31.0) pg MCHC 32.8 (32.0-36.0) g/dL RDW 15.2 H (12.0-15.0) % Plt Count 163 (130-450) 10^3/uL MPV 8.5 (7.9-10.8) fL Neut # 5.0 (1.5-6.6) 10^3/uL Lymph # 0.7 L (1.5-3.5) 10^3/uL [place] # 0.2 (0.0-1.0) 10^3/uL Eos # 0.0 (0.0-0.7) 10^3/uL Baso # 0.0 (0.0-0.1) 10^3/uL Absolute Nucleated RBC 0.00 x10^3/uL Nucleated RBC % 0.0 /100WBC Sodium 141 (135-145) mmol/L Potassium 4.0 (3.5-5.0) mmol/L Chloride 105 (101-111) mmol/L Carbon Dioxide 27 (21-32) mmol/L Anion Gap 9.0 (6-13) BUN 40 H (6-20) mg/dL Creatinine 1.5 H (0.4-1.0) mg/dL Estimated GFR (MDRD) 34 L (>89) Glucose 193 H (70-100) mg/dL Lactic Acid 1.3 (0.5-2.2) mmol/L Calcium 8.7 (8.5-10.3) mg/dL Phosphorus 3.8 (2.5-4.6) mg/dL Magnesium 1.8 (1.7-2.8) mg/dL Total Bilirubin 0.4 (0.2-1.0) mg/dL AST 17 (10-42) IU/L ALT 23 (10-60) IU/L Alkaline Phosphatase 34 L (42-121) IU/L Total Protein 6.1 L (6.7-8.2) g/dL Albumin 3.3 (3.2-5.5) g/dL Globulin 2.8 (2.1-4.2) g/dL Albumin/Globulin Ratio 1.2 (1.0-2.2) - Diagnostic Imaging Diagnostic Imaging Results: positive: Final report reviewed Assessment/Plan - Problem List (1) Acute exacerbation of COPD with asthma Impression: Patient is prescribed Duo-nebs QID per nebulizer and a Atrovent inhaler at her assisted living. She has a long history of lung disease and is typically well managed. She is not oxygen dependent. She was seen in the clinic prior to admission for worsening SOB with a productive cough. Chest x-ray did not show infiltrates, but will use Azithromycin PO as a preventative. Plan: Treat with duo-nebs, IV steroids, and attempt to obtain a sputum sample. IV steroids decreased today. (2) Dorsalgia, unspecified Impression: Patient has a long standing history of low back pain and is prescribed oxycodone and ativan at home. Per phone interview with brother, Davie, patient does not get up much at her assisted living due to staffing and possibly over- eats. Plan: Encourage ambulation and give home meds. 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 She also suffers from other mental illnesses such as schizo-affective disorder and bi-polar. Plan: Continue on home medications; mirtazapine, escitalopram, and ativan. Qualifiers: Alzheimer's disease onset: unspecified onset (4) Hearing loss of both ears Impression: Patient can be extremely difficult to communicate with, although she clearly lets you know if she cannot hear the questions being asked. Use of visual aides and phone interview with her brother helped in completing this admission. Plan: Use hearing aides, and visual dry erase board when possible. Qualifiers: Hearing loss type: unspecified Qualified Code(s): H91.93 - Unspecified hearing loss, bilateral
[2017-08-03] MEDS: IPRATROPIUM/ALBUTEROL 3 ML NEB INH SCH ×3 (09:00→22:44)
[2017-08-03] MEDS: BUDESONIDE 0.5 MG/2 ML NEB INH SCH ×2 (09:00→22:44)
[2017-08-03] MEDS: prednisoLONE 1% OPHTH DROPS 75 DROPS/5 ML BOTTLE RIGHTEYE SCH (11:00)
[2017-08-03] MEDS ORDERED: methylPREDNISolone SUCCINATE 125 MG/2 ML VIAL IVP SCH (13:15)
[2017-08-03] MEDS ORDERED: methylPREDNISolone SUCCINATE 40 MG/ML VIAL IVP SCH (14:30)
[2017-08-03] MEDS ORDERED: amLODIPine 5 MG TABLET PO SCH (16:10)
[2017-08-03] MEDS: ENOXAPARIN 30 MG/0.3 ML SYRINGE SUBQ SCH (20:31)
[2017-08-03] MEDS: methylPREDNISolone SUCCINATE 40 MG/ML VIAL IVP SCH (20:32)
[2017-08-03] MEDS: LOSARTAN 50 MG TABLET PO SCH (20:33)
[2017-08-03] MEDS: MIRTAZAPINE 15 MG TABLET PO SCH (20:35)
[2017-08-04] MEDS: SODIUM CHLORIDE FLUSH 0.9% 10 ML SYRINGE IVP SCH ×3 (05:55→19:58)
[2017-08-04 06:01] LABS: ALBUMIN 3.5 g/dL (3.2-5.5); ALBUMIN/GLOBULIN RATIO 1.3 (1.0-2.2); BILIRUBIN,TOTAL 0.3 mg/dL (0.2-1.0); CALCIUM 9.1 mg/dL (8.5-10.3); CREATININE 1.5 mg/dL (0.4-1.0); TOTAL PROTEIN 6.2 g/dL (6.7-8.2)
[2017-08-04] MEDS: IPRATROPIUM/ALBUTEROL 3 ML NEB INH SCH ×3 (07:47→13:03)
[2017-08-04] MEDS: BUDESONIDE 0.5 MG/2 ML NEB INH SCH ×2 (07:47→20:08)
--- NOTE | 2017-08-04 07:52 | PROVIDER PROGRESS NOTE ---
Subjective - Prog Note Date Prog Note Date: 08/04/17 Prog Note Time: 07:52 - Subjective Pt reports feeling: Improved Subjective: Patti wonders when her brother might be by to visit. She denies SOB, chest pain , N/V or a new cough. Current Medications - Current Medications Current Medications: Active Medications Acetaminophen (Tylenol) 650 mg PO Q6H PRN PRN Reason: PAIN/FEVER Last Admin: 08/03/17 20:34 Dose: 650 mg Albuterol/Ipratropium (Duoneb) 3 ml INH RTQID [facility] Last Admin: 08/04/17 13:03 Dose: 3 ml Albuterol/Ipratropium (Duoneb) 3 ml INH Q4HR PRN PRN Reason: Wheezing Aspirin ([place] Aspirin) 81 mg PO DAILY [facility] Last Admin: 08/04/17 09:09 Dose: 81 mg Budesonide (Pulmicort) 0.5 mg INH RTBID [facility] Last Admin: 08/04/17 07:47 Dose: 0.5 mg Clopidogrel Bisulfate (Plavix) 75 mg PO DAILY [facility] Last Admin: 08/04/17 09:08 Dose: 75 mg Enoxaparin Sodium (Lovenox) 30 mg SUBQ DAILY@2100 [facility] Last Admin: 08/03/17 20:31 Dose: 30 mg Escitalopram Oxalate (Lexapro) 10 mg PO DAILY [facility] Last Admin: 08/04/17 09:08 Dose: 10 mg Lorazepam (Ativan) 0.5 mg PO BID [facility] Last Admin: 08/04/17 09:08 Dose: 0.5 mg Losartan Potassium (Cozaar) 50 mg PO QPM [facility] Last Admin: 08/03/17 20:33 Dose: 50 mg Methylprednisolone (Solu-Medrol (40mg Vial)) 40 mg IVP BID [facility] Last Admin: 08/04/17 09:12 Dose: 40 mg Metoprolol Tartrate (Lopressor) 50 mg PO BID [facility] Last Admin: 08/04/17 09:08 Dose: 50 mg Mirtazapine (Remeron) 7.5 mg PO QPM [facility] Last Admin: 08/03/17 20:35 Dose: 7.5 mg Oxycodone HCl (Roxicodone) 5 mg PO BID PRN PRN Reason: PAIN Polyethylene Glycol (Miralax) 17 gm PO DAILY [facility] Last Admin: 08/04/17 09:14 Dose: 17 gm Prednisolone (Pred Forte 1% Ophth Drops) 1 drops RIGHTEYE DAILY [facility] Last Admin: 08/04/17 09:13 Dose: 1 drops Sodium Chloride (Normal Saline Flush 0.9%) 10 ml IVP PRN PRN PRN Reason: NEEDED PER PROVIDER ORDERS Sodium Chloride (Normal Saline Flush 0.9%) 10 ml IVP Q8HR [facility] Last Admin: 08/04/17 14:15 Dose: 10 ml Clopidogrel [Plavix] 75 mg PO DAILY 12/12/12 Escitalopram [Lexapro] 10 mg PO DAILY 12/12/12 Furosemide 40 mg PO DAILY 12/12/12 Lovastatin 40 mg PO DAILY 12/12/12 Prednisolone Acetate 1 drop RIGHTEYE DAILY 12/12/12 Triamcinolone 0.1% Cream [Kenalog] 1 applic TOP DAILY 12/12/12 LORazepam [Ativan] 0.5 mg PO BID 04/24/15 Losartan [Cozaar] 50 mg PO QPM 08/17/16 Metoprolol Tartrate 50 mg PO BID 08/17/16 Mirtazapine 7.5 mg PO DAILY PM 08/17/16 guaiFENesin [Guaifenesin] 200 mg PO Q6H PRN 08/17/16 oxyCODONE [Roxicodone] 5 mg PO BID PRN 08/17/16 raNITIdine [Zantac] 150 mg PO DAILY 08/17/16 Acetaminophen 650 mg PO Q6H PRN 08/02/17 Albuterol Sulf [Ventolin Hfa Inhaler] 2 puffs INH Q3H PRN 08/02/17 Aspirin 81 mg PO DAILY 08/02/17 Budesonide [Pulmicort Flexhaler] 2 puffs INH BID 08/02/17 Cholecalciferol (Vitamin D3) [Vitamin D3] 2,000 units PO DAILY 08/02/17 Ipratropium/Albuterol [Duoneb] 3 ml INH QID 08/02/17 Polyvinyl Alcohol [Artificial Tears] 1 drops EACHEYE BID 08/02/17 predniSONE [Prednisone] 10 mg PO DAILY 08/02/17 Objective - Vital Signs/Intake & Output Reviewed Vital Signs: Yes Vital Signs: Vital Signs x48h Temp Pulse Pulse Resp BP Pulse Ox 08/04/17 07:48 69 18 08/04/17 00:28 37.0 C 88 18 152/59 H 97 Intake & Output: Intake & Output 08/01/17 08/02/17 08/03/17 08/04/17 23:59 23:59 23:59 23:59 Intake Total 570 1345 200 Balance 570 1345 200 - Objective General Appearance: positive: No acute distress, Alert, Anxious Eyes Bilateral: positive: Normal inspection, PERRL ENT: positive: ENT inspection nml, Pharynx nml, No signs of dehydration Neck: positive: Nml inspection, Thyroid nml, No JVD, Trachea midline Respiratory: positive: Chest non-tender, No respiratory distress, Wheezes, Other (dimished.) Cardiovascular: positive: Regular rate & rhythm, No gallop, Systolic murmur, Decreased pulse(s) Peripheral Pulses: 1+ Radial (R), 1+ Radial (L) Abdomen: positive: Non-tender, No organomegaly, Nml bowel sounds, No distention , Other (rounded, soft.) Back: positive: Nml inspection Skin: positive: No rash, Warm, Dry, Pallor Extremities: positive: Non-tender, Full ROM, Pedal edema, Joint swelling Neurologic/Psychiatric: positive: CN's nml (2-12), Motor nml, Sensation nml, Disoriented to time, Weakness, Depressed mood/affect Reflexes: Bicep (R): 2+, Bicep (L): 2+ - Lab Results Fish Bones: 08/03/17 04:47 08/04/17 05:14 Other Labs: Lab Results x24hrs 08/04/17 Range/Units 05:14 Sodium 142 (135-145) mmol/L Potassium 3.8 (3.5-5.0) mmol/L Chloride 106 (101-111) mmol/L Carbon Dioxide 25 (21-32) mmol/L Anion Gap 11.0 (6-13) BUN 48 H (6-20) mg/dL Creatinine 1.5 H (0.4-1.0) mg/dL Estimated GFR (MDRD) 34 L (>89) Glucose 153 H (70-100) mg/dL Calcium 9.1 (8.5-10.3) mg/dL Total Bilirubin 0.3 (0.2-1.0) mg/dL AST 21 (10-42) IU/L ALT 21 (10-60) IU/L Alkaline Phosphatase 36 L (42-121) IU/L Total Protein 6.2 L (6.7-8.2) g/dL Albumin 3.5 (3.2-5.5) g/dL Globulin 2.7 (2.1-4.2) g/dL Albumin/Globulin Ratio 1.3 (1.0-2.2) - Diagnostic Imaging Diagnostic Imaging Results: positive: Final report reviewed Assessment/Plan - Problem List (1) Acute exacerbation of COPD with asthma Impression: Patient is prescribed Duo-nebs QID per nebulizer and a Atrovent inhaler at her assisted living. She has a long history of lung disease and is typically well managed. She is not oxygen dependent. She was seen in the clinic prior to admission for worsening SOB with a productive cough. Chest x-ray did not show infiltrates, but will use Azithromycin PO as a preventative. Plan: Treat with duo-nebs, IV steroids, and attempt to obtain a sputum sample. IV steroids decreased yesterday with plans for a steroid taper beginning tomorrow. (2) Dorsalgia, unspecified Impression: Patient has a long standing history of low back pain and is prescribed oxycodone and ativan at home. Per phone interview with brother, Davie, patient does not get up much at her assisted living due to staffing and possibly over- eats. Plan: Encourage ambulation and give home meds. 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 She also suffers from other mental illnesses such as schizo-affective disorder and bi-polar. Plan: Continue on home medications; mirtazapine, escitalopram, and ativan. Qualifiers: Alzheimer's disease onset: unspecified onset (4) Hearing loss of both ears Impression: Patient can be extremely difficult to communicate with, although she clearly lets you know if she cannot hear the questions being asked. Use of visual aides and phone interview with her brother helped in completing this admission. Plan: Use hearing aides, and visual dry erase board when possible. Qualifiers: Hearing loss type: unspecified Qualified Code(s): H91.93 - Unspecified hearing loss, bilateral
[2017-08-04] MEDS: METOPROLOL TARTRATE 50 MG TABLET PO SCH ×2 (09:08→19:58)
[2017-08-04] MEDS: LORazepam 0.5 MG TABLET PO SCH ×2 (09:08→19:57)
[2017-08-04] MEDS: ESCITALOPRAM 10 MG TABLET PO SCH (09:08)
[2017-08-04] MEDS: CLOPIDOGREL 75 MG TABLET PO SCH (09:08)
[2017-08-04] MEDS: ASPIRIN CHEW 81 MG TABLET PO SCH (09:09)
[2017-08-04] MEDS: methylPREDNISolone SUCCINATE 40 MG/ML VIAL IVP SCH (09:12)
[2017-08-04] MEDS: prednisoLONE 1% OPHTH DROPS 75 DROPS/5 ML BOTTLE RIGHTEYE SCH (09:13)
[2017-08-04] MEDS: POLYETHYLENE GLYCOL 3350 17 GM PACKET PO SCH (09:14)
[2017-08-04] MEDS ORDERED: LEVALBUTEROL 1.25 MG/3 ML NEB INH PRN (17:12)
[2017-08-04] MEDS: FUROSEMIDE 40 MG/4 ML VIAL IVP SCH (17:35)
[2017-08-04] MEDS: amLODIPine 5 MG TABLET PO SCH (17:35)
[2017-08-04] MEDS: LOSARTAN 50 MG TABLET PO SCH (19:57)
[2017-08-04] MEDS: ENOXAPARIN 30 MG/0.3 ML SYRINGE SUBQ SCH (19:57)
[2017-08-04] MEDS: MIRTAZAPINE 15 MG TABLET PO SCH (19:57)
[2017-08-04] MEDS: LEVALBUTEROL 1.25 MG/3 ML NEB INH SCH ×3 (20:08→21:09)
[2017-08-05 05:45] LABS: ALBUMIN 3.2 g/dL (3.2-5.5); ALBUMIN/GLOBULIN RATIO 1.3 (1.0-2.2); BILIRUBIN,TOTAL 0.3 mg/dL (0.2-1.0); CALCIUM 8.9 mg/dL (8.5-10.3); CREATININE 1.4 mg/dL (0.4-1.0); TOTAL PROTEIN 5.6 g/dL (6.7-8.2)
[2017-08-05] MEDS: SODIUM CHLORIDE FLUSH 0.9% 10 ML SYRINGE IVP SCH (05:58)
[2017-08-05] MEDS: LEVALBUTEROL 1.25 MG/3 ML NEB INH SCH ×2 (06:02→13:23)
[2017-08-05] MEDS: BUDESONIDE 0.5 MG/2 ML NEB INH SCH (06:08)
--- NOTE | 2017-08-05 07:43 | Discharge Plan ---
"Discharge Plan for SNF / [facility] - DC Plan and Transition Orders Disposition: 03 SNF DC/Xfer Condition: Good SNF Transition Orders: Admit to: [facility] under the care of Gurpreet Rubio Discharge Diagnosis: COPD, dorsalgia, dementia, severe hearing loss, schizophrenia, bi-polar disorder, and urinary incontinence. Medicare Certification: I certify that [facility] care is medically necessary on a continuing basis for any of the conditions for which she/he is receiving care during hospitalization. Notify PCP of admission and forward orders to primary provider for signature. Weight on admission and weekly. Call PCP immediately if weight increases by 10 pounds or if patient develops dyspnea, chest pain/tightness or edema. House Bowel Program: yes If no BM after 2 days, nurse may give M.O.M. 30ml PO PRN and /or ducolax Supp 1 OR and /or ISAK 250mg P.O., and/or senna 1-2 tabs PO. On day 3 nurse may give repeat above order until residents constipation is resolved. Immunizations:Annual Influenza Vaccine: yes.(between Mar 18 and October 15.) Unless allergy or already given Two-Step PPD: yes per [facility] 248-235 or appropriate documentation of approved exceptions Treatments & Other Orders: PT/OT/speech, assistance with ambulation using a walker. Prednisone tapering dosing to finish COPD exacerbation treatment. Oxygen Orders: 1-4L via nasal cannula to keep oxygen saturation greater than 90% . Lab Tests or X-Rays Orders: Monitor labs weekly or as per protocol as directed by patient's PCP. Orthopedic Orders: N/A. Medications:PLEASE REFER TO THE DISCHARGE MEDICATION LIST. LOW DOSE MODERATE DOSE MODERATE/HIGH DOSE HIGH DOSE GB UNITS GB UNITS GB UNITS GB UNITS 61-140 0 UNITS 61-140 0 UNITS 61-140 0 UNITS 61-140 0 UNITS 141-175 1 UNITS 141-175 1 UNITS 141-175 2 UNITS 141-175 3 UNITS 176-225 2 UNITS 176-225 3 UNITS 176-225 4 UNITS 176-225 5 UNITS 226-275 3 UNITS 226-275 5 UNITS 226-275 6 UNITS 226-275 7 UNITS 276-325 4 UNITS 276-325 7 UNITS 276-325 8 UNITS 276-325 9 UNITS 326-375 5 UNITS 326-375 9 UNITS 326-375 10 UNITS 326-375 11 UNITS >375 CONTACT MD >375 CONTACT MD >375 CONTACT MD >375 CONTACT MD GB Units 61-140 Units 141-175 Units 176-225 Units 226-275 Units 276-325 Units 326-375 Units >375 Contact MD Allergies and Adverse Reactions: Allergies Allergy/AdvReac Type Severity Reaction Status Date / Time levofloxacin [From Levaquin] Allergy Severe Unknown Verified 04/27/15 12:24 - Medications New Prescriptions: Prednisone 10 mg PO DAILY 6 Days #18 tab.ds.pk - Diet Type: Geriatric Texture: Regular May have monthly special meal: Yes - Therapies | Activity Therapy: Evaluation | Treat if indicated: Speech, PT, OT Rehabilitation Potential: Maximize functional status, Maintain present ADL Functional Activity: No Restrictions Weight Bearing: Full Weight Assistance Devices: Walker"
--- NOTE | 2017-08-05 07:47 | DISCHARGE SUMMARY ---
Discharge Summary Admit Date: 08/02/17 Discharge Date: 08/05/17 Discharging Provider: LUIS Latham Primary Care Provider: Gurpreet Rubio Code Status: Do Not Attempt Resuscitation Condition at Discharge: Good Discharge Disposition: 03 SNF DC/Xfer Discharge Facility Name: [facility] - DIAGNOSES Admission Diagnoses: Chronic obstructive pulmonary disease with (acute) exacerbation (J44.1) Dorsalgia, unspecified (M54.9) Unspecified dementia without behavioral disturbance (F03.90) Unspecified hearing loss, bilateral (H91.93) Discharge Diagnoses with Status of Each Condition: Acute exacerbation of COPD with asthma (J44.1) Chronic back pain (M54.9) Dementia (F03.90) Hearing loss of both ears (H91.93) - HPI History of Present Illness: Patti Delgado is a 76-year old with a past medical history of HTN, hyperlipidemia, CAD, asthma, COPD, schizophrenia, bi-polar disorder, dementia, CVA ~20years ago , GERD, urinary incontinence, chronic hearing loss, depression, anxiety, chronic back pain, history of herpes zoster, and a history of smoking. Patient lives at [facility], and has not been oxygen dependent. Patient was seen at her PCP office for fevers, productive cough and nausea, vomiting and diarrhea that started a day ago. She was sent directly from the clinic to our ED and was found to be hypoxic, given nebs, steroids, and a chest x-ray in the ED. Patient will be admitted to I/P for further treatment of her COPD exacerbation including IV steroids, gentle IVFs, and nebulizers. Brother, Davie called, updated and was helpful in obtaining accurate history information. - HOSPITAL COURSE Hospital Course: The following problems/diagnoses were prevalent during this hospital stay: Acute exacerbation of COPD with asthma: Patient is prescribed Duo-nebs QID per nebulizer and a Atrovent inhaler at her assisted living. She has a long history of lung disease and is typically well managed. She is not oxygen dependent. She was seen in the clinic prior to admission for worsening SOB with a productive cough. Chest x-ray did not show infiltrates, but will use Azithromycin PO as a preventative. Patient was treated with duo-nebs, IV steroids, and a sputum sample was obtained. IV steroids were gradually decreased and patient was continued on a steroid taper upon discharge. Dorsalgia: Patient has a long standing history of low back pain and is prescribed oxycodone and ativan at home. Per phone interview with brother, Davie , patient does not get up much at her assisted living due to staffing and possibly over-eats. Patient was evaluated by PT while here who determined patient to be at baseline ambulation. She remained on her home meds to treat her back pain. 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 She also suffers from other mental illnesses such as schizo-affective disorder and bi-polar. Patient was continued on her home medications; mirtazapine, escitalopram, and ativan. Bilateral hearing loss: Patient can be extremely difficult to communicate with , although she clearly lets you know if she cannot hear the questions being asked. Use of visual aides and phone interview with her brother helped in completing this admission. Staff allowed patient to use her hearing aides, and visual dry erase board when possible. Disposition: Patient was discharged in stable condition, without the use of supplemental oxygen and was transported via transport van. Brother was updated. - ALLERGIES Allergies/Adverse Reactions: Allergies Allergy/AdvReac Type Severity Reaction Status Date / Time levofloxacin [From Levaquin] Allergy Severe Unknown Verified 04/27/15 12:24 - MEDICATIONS Home Medications: Ambulatory Orders Medication Instructions Recorded Confirmed Clopidogrel [Plavix] 75 mg PO DAILY 12/12/12 08/02/17 Escitalopram [Lexapro] 10 mg PO DAILY 12/12/12 08/02/17 Furosemide 40 mg PO DAILY 12/12/12 08/02/17 Lovastatin 40 mg PO DAILY 12/12/12 08/02/17 Prednisolone Acetate 1 drop RIGHTEYE DAILY 12/12/12 08/02/17 Triamcinolone 0.1% Cream [Kenalog 1 applic TOP DAILY 12/12/12 08/02/17 0.1% Cream] LORazepam [Ativan] 0.5 mg PO BID 04/24/15 08/02/17 Losartan [Cozaar] 50 mg PO QPM 08/17/16 08/02/17 Metoprolol Tartrate 50 mg PO BID 08/17/16 08/02/17 Mirtazapine 7.5 mg PO DAILY PM 08/17/16 08/02/17 guaiFENesin [Guaifenesin] 200 mg PO Q6H PRN 08/17/16 08/02/17 oxyCODONE [Roxicodone] 5 mg PO BID PRN 08/17/16 08/02/17 raNITIdine [Zantac] 150 mg PO DAILY 08/17/16 08/02/17 Acetaminophen 650 mg PO Q6H PRN 08/02/17 08/02/17 Albuterol Sulf [Ventolin Hfa 2 puffs INH Q3H PRN 08/02/17 08/02/17 Inhaler] Aspirin 81 mg PO DAILY 08/02/17 08/02/17 Budesonide [Pulmicort Flexhaler] 2 puffs INH BID 08/02/17 08/02/17 Cholecalciferol (Vitamin D3) 2,000 units PO DAILY 08/02/17 08/02/17 [Vitamin D3] Ipratropium/Albuterol [Duoneb] 3 ml INH QID 08/02/17 08/02/17 Polyvinyl Alcohol [Artificial 1 drops EACHEYE BID 08/02/17 08/02/17 Tears] Prednisone 10 mg PO DAILY 6 Days #18 tab.ds.pk 08/05/17 - PHYSICAL EXAM AT DISCHARGE General Appearance: positive: No acute distress, Alert Eyes Bilateral: positive: Normal inspection ENT: positive: ENT inspection nml, Pharynx nml, No signs of dehydration Neck: positive: Nml inspection, Thyroid nml, No JVD, Trachea midline Respiratory: positive: Chest non-tender, No respiratory distress, Wheezes Cardiovascular: positive: No gallop, Decreased pulse(s) Peripheral Pulses: positive: 1+ Abdomen: positive: Non-tender, No organomegaly, Nml bowel sounds, No distention , Other (soft, rounded.) Back: positive: Nml inspection Skin: positive: No rash, Warm, Dry, Pallor Extremities: positive: Non-tender, Full ROM, Pedal edema (dependent) Neurologic/Psychiatric: positive: CN's nml (2-12), Motor nml, Disoriented to time, Weakness, Depressed mood/affect, Other (baseline developmental delay) Reflexes: Bicep (R): 2+, Bicep (L): 2+ - LABS Result Diagrams: 08/03/17 04:47 08/05/17 04:45 - DIAGNOSTIC IMAGING Diagnostic Imaging Results: Final report reviewed - FOLLOW UP Follow Up: Disposition: 03 SNF DC/Xfer Condition: Good SNF Transition Orders: Admit to: [facility] under the care of Gurpreet Rubio Discharge Diagnosis: COPD, dorsalgia, dementia, severe hearing loss, schizophrenia, bi-polar disorder, and urinary incontinence. - TIME SPENT Time Spent in Discharge (Minutes): 60
[2017-08-05] MEDS ORDERED: predniSONE 20 MG TABLET PO SCH (08:00)
[2017-08-05 08:39] VITALS: BP 134/55
[2017-08-05] MEDS: amLODIPine 5 MG TABLET PO SCH (09:51)
[2017-08-05] MEDS: CLOPIDOGREL 75 MG TABLET PO SCH (09:52)
[2017-08-05] MEDS: ESCITALOPRAM 10 MG TABLET PO SCH (09:53)
[2017-08-05] MEDS: LORazepam 0.5 MG TABLET PO SCH (09:54)
[2017-08-05] MEDS: METOPROLOL TARTRATE 50 MG TABLET PO SCH (09:55)
[2017-08-05] MEDS: ASPIRIN CHEW 81 MG TABLET PO SCH (10:03)
[2017-08-05] MEDS: POLYETHYLENE GLYCOL 3350 17 GM PACKET PO SCH (10:06)
[2017-08-05] MEDS: FUROSEMIDE 40 MG/4 ML VIAL IVP SCH (10:09)
[2017-08-05] MEDS: prednisoLONE 1% OPHTH DROPS 75 DROPS/5 ML BOTTLE RIGHTEYE SCH (10:12)
== END 2017-08-05 14:16 | DRG 192 ==
LOC: EDUNIT# → ED 09:40 → MS2 12:35
PROVIDERS: ADMIT Nurse Practitioner; ATTEND Nurse Practitioner
DX: J44.1 Chronic obstructive pulmonary disease with (acute) exacerbation (principal); I10 Essential (primary) hypertension; E78.00 Pure hypercholesterolemia, unspecified; I25.10 Atherosclerotic heart disease of native coronary artery without angina pectoris; E78.5 Hyperlipidemia, unspecified; K21.9 Gastro-esophageal reflux disease without esophagitis; R32 Unspecified urinary incontinence; F20.9 Schizophrenia, unspecified; F31.9 Bipolar disorder, unspecified; F41.9 Anxiety disorder, unspecified; I69.998 Other sequelae following unspecified cerebrovascular disease; F03.90 Unspecified dementia, unspecified severity, without behavioral disturbance, psychotic disturbance, mood disturbance, and anxiety; G89.29 Other chronic pain; M54.9 Dorsalgia, unspecified; R35.0 Frequency of micturition; H91.93 Unspecified hearing loss, bilateral; F11.21 Opioid dependence, in remission; Z66 Do not resuscitate; Z86.73 Personal history of transient ischemic attack (TIA), and cerebral infarction without residual deficits; Z79.51 Long term (current) use of inhaled steroids; Z79.82 Long term (current) use of aspirin; Z79.02 Long term (current) use of antithrombotics/antiplatelets; Z79.891 Long term (current) use of opiate analgesic; Z79.52 Long term (current) use of systemic steroids; Z79.899 Other long term (current) drug therapy; Z87.891 Personal history of nicotine dependence
CPT/HCPCS: 36415; 71045; 80048; 80053; 83605; 83735; 84100; 85025; 87040; 87275; 87276; 93005; 93306; 94640; 99284; 99285

== ENCOUNTER 2018-01-27 12:28 | Emergency (ER) | payer MEDICARE, MEDICAID ==
[2018-01-27 12:43] VITALS: BP 135/62
[2018-01-27] MEDS ORDERED: ERYTHROMYCIN OPHTH OINT 1 GM TUBE EACHEYE STA (12:51)
--- NOTE | 2018-01-27 12:52 | ED Physician Documentation ---
PD HPI OPHTHO - Stated complaint Stated Complaint: R EYE IRRITATION - Chief complaint Chief Complaint: Heent - History obtained from History obtained from: Patient, Family (Brother) - History of Present Illness Timing - onset: How many weeks ago (2) Timing - details: Still present Location: Both Quality / character: Burning Associated symptoms: Redness, Discharge Recently seen: Clinic - Additional information Additional information: The patient is a 77-year-old female who presents with discharge and matting of both eyes. Her symptoms were started about one month ago, but have become worse since last night, with burning in her eyes. She was seen in clinic and was prescribed ophthalmic antibiotic, but was told at the pharmacy that her insurance company will not cover that medication. She denies history of similar symptoms in the past. She has a history of schizophrenia, and resides in an assisted living facility. Review of Systems Constitutional: denies: Fever Eyes: reports: Discharge, Irritation. 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: Other : Incontinence, Frequency HEENT: Chronic vision loss, Chronic hearing loss Psych: Depression, Anxiety, Bipolar disorder, Schizophrenia Musculoskeletal: Chronic back pain Derm: Herpes zoster, Other - Past Surgical History Past Surgical History: Yes General: Cholecystectomy Cardiovascular: Angioplasty - Present Medications Home Medications: Ambulatory Orders Medication Instructions Recorded Confirmed Clopidogrel [Plavix] 75 mg PO DAILY 12/12/12 01/27/18 Escitalopram [Lexapro] 10 mg PO DAILY 12/12/12 01/27/18 Furosemide 40 mg PO DAILY 12/12/12 01/27/18 Lovastatin 40 mg PO DAILY 12/12/12 01/27/18 Prednisolone Acetate 1 drop RIGHTEYE DAILY 12/12/12 01/27/18 Triamcinolone 0.1% Cream [Kenalog 1 applic TOP DAILY 12/12/12 01/27/18 0.1% Cream] LORazepam [Ativan] 0.5 mg PO BID 04/24/15 01/27/18 Losartan [Cozaar] 50 mg PO QPM 08/17/16 01/27/18 Metoprolol Tartrate 50 mg PO BID 08/17/16 01/27/18 Mirtazapine 7.5 mg PO DAILY PM 08/17/16 01/27/18 guaiFENesin [Guaifenesin] 200 mg PO Q6H PRN 08/17/16 01/27/18 oxyCODONE [Roxicodone] 5 mg PO BID PRN 08/17/16 01/27/18 raNITIdine [Zantac] 150 mg PO DAILY 08/17/16 01/27/18 Acetaminophen 650 mg PO Q6H PRN 08/02/17 01/27/18 Albuterol Sulf [Ventolin Hfa 2 puffs INH Q3H PRN 08/02/17 01/27/18 Inhaler] Aspirin 81 mg PO DAILY 08/02/17 01/27/18 Budesonide [Pulmicort Flexhaler] 2 puffs INH BID 08/02/17 01/27/18 Cholecalciferol (Vitamin D3) 2,000 units PO DAILY 08/02/17 01/27/18 [Vitamin D3] Ipratropium/Albuterol [Duoneb] 3 ml INH QID 08/02/17 01/27/18 Polyvinyl Alcohol [Artificial 1 drops EACHEYE BID 08/02/17 01/27/18 Tears] Prednisone 10 mg PO DAILY 6 Days #18 tab.ds.pk 08/05/17 01/27/18 Erythromycin Base [Erythromycin 0.5 inch EACHEYE QID #3.5 oint...g. 01/27/18 Ophthalmic Ointment] - Allergies Allergies/Adverse Reactions: Allergies Allergy/AdvReac Type Severity Reaction Status Date / Time levofloxacin [From Levaquin] Allergy Severe Unknown Verified 01/27/18 12:42 - Social History Does the pt smoke?: No Smoking Status: Never smoker Does the pt drink ETOH?: No Does the pt have substance abuse?: No - POLST Patient has POLST: Yes PD ED PE NORMAL - Vitals Vital signs reviewed: Yes (Borderline systolic hypertension initially.) - General General: Alert and oriented X 3, Well developed/nourished - HEENT HEENT: Atraumatic, PERRL, EOMI, Ears normal, Pharynx benign, Other (There is purulent drainage from both eyes, with matting along the lid margins. Right is worse than left. Conjunctival erythema bilaterally. Visual acuity is 20/40 in the right eye, and 20/50 in the left with corrective lenses.) - Neck Neck: No adenopathy - Respiratory Respiratory: No respiratory distress - Derm Derm: No rash Results - Vitals Vitals: Oxygen O2 Source Room air PD MEDICAL DECISION MAKING - ED course Complexity details: considered differential, d/w patient, d/w family ED course: The patient's presentation is most consistent with bilateral conjunctivitis. There is no clinical evidence to suggest glaucoma, iritis, or uveitis. Treatment in the emergency department included administration of erythromycin ophthalmic ointment bilaterally. She is being discharged with prescription for mycin ophthalmic ointment. I discussed with her and her brother the diagnosis, antibiotic treatment and outpatient follow-up, as well as potentially worrisome signs or symptoms that should prompt reevaluation in the emergency department. - Sepsis Event Vital Signs: Oxygen O2 Source Room air Departure - Departure Disposition: 01 Home, Self Care Clinical Impression: Acute conjunctivitis, bilateral Qualifiers: Acute conjunctivitis type: unspecified Qualified Code(s): H10.33 - Unspecified acute conjunctivitis, bilateral Condition: Stable Instructions: ED Conjunctivitis Bacterial Follow-Up: Gurpreet Rubio MD [Primary Care Provider] - Prescriptions: Erythromycin Base [Erythromycin Ophthalmic Ointment] 0.5 inch EACHEYE QID #3.5 oint...g. Comments: Use warm damp washcloth to clean debris from your eyes. Apply erythromycin ophthalmic ointment 4 times daily as prescribed. Follow up with your primary physician within 1 week. Call to schedule an appointment. Return to the emergency department if you develop increasing pain in your eyes, progressive difficulty with vision, or otherwise worsening symptoms. Discharge Date/Time: 01/27/18 13:17
== END 2018-01-27 13:17 | disposition home or self-care (01) ==
LOC: ED 12:28
DX: H10.33 Unspecified acute conjunctivitis, bilateral (principal); I10 Essential (primary) hypertension; E78.00 Pure hypercholesterolemia, unspecified; I25.10 Atherosclerotic heart disease of native coronary artery without angina pectoris
CPT/HCPCS: 99283; J3490

== ENCOUNTER 2019-06-06 08:04 | Outpatient (CLI) | payer MEDICARE, MEDICAID ==
[2019-06-06 08:25] LABS: BASOPHILS # (AUTO) 0.1 10^3/uL (0.0-0.1); BASOPHILS % (AUTO) 0.6 %; EOSINOPHILS # (AUTO) 0.5 10^3/uL (0.0-0.7); EOSINOPHILS % (AUTO) 4.2 %; LYMPHOCYTES # (AUTO) 1.9 10^3/uL (1.5-3.5); LYMPHOCYTES % (AUTO) 17.9 %; MEAN CORPUSCULAR HEMOGLOBIN 28.3 pg (27.0-31.0); MEAN CORPUSCULAR HGB CONC 30.4 g/dL (32.0-36.0); MEAN PLATELET VOLUME 10.7 fL (7.9-10.8); MONOCYTES # (AUTO) 0.9 10^3/uL (0.0-1.0); MONOCYTES % (AUTO) 8.2 %; NEUTROPHILS # (AUTO) 7.4 10^3/uL (1.5-6.6); NEUTROPHILS % (AUTO) 68.7 %; PLT - PLATELET COUNT 255 10^3/uL (130-450); RED CELL DISTRIBUTION WIDTH 14.3 % (12.0-15.0); WHITE BLOOD COUNT 10.7 x10^3/uL (4.8-10.8)
[2019-06-06 08:43] LABS: ALBUMIN/GLOBULIN RATIO 1.4 (1.0-2.2); ALKALINE PHOSPHATASE 49 IU/L (42-121); ALT ALANINE AMINOTRANSFERASE 15 IU/L (10-60); AST ASPARTATE AMINOTRANSFERASE 17 IU/L (10-42); BILIRUBIN,TOTAL 0.9 mg/dL (0.2-1.0); BUN - BLOOD UREA NITROGEN 37 mg/dL (6-20); CALCIUM 9.6 mg/dL (8.5-10.3); CARBON DIOXIDE - CO2 31 mmol/L (21-32); CHLORIDE 101 mmol/L (101-111); CHOL/HDL RATIO 3.5 (<4.4); CHOLESTEROL 209 mg/dL; CREATININE 1.2 mg/dL (0.4-1.0); GFR - MDRD 43 (>89); GLUCOSE 98 mg/dL (70-100); HDL CHOLESTEROL 60 mg/dL; LDL CHOLESTEROL,CALCULATED 132 mg/dL; LDL/HDL RATIO 2.2 (<4.4); SODIUM 141 mmol/L (135-145); TOTAL PROTEIN 6.8 g/dL (6.7-8.2); VLDL CHOLESTEROL 17 mg/dL
[2019-06-06 09:01] LABS: FERRITIN 150.4 ng/mL (11.0-306.8)
== END 2019-06-06 08:05 | disposition home or self-care (01) ==
LOC: LAB 08:04
PROVIDERS: ATTEND Family Medicine
DX: I10 Essential (primary) hypertension (principal); D64.9 Anemia, unspecified; E78.5 Hyperlipidemia, unspecified
CPT/HCPCS: 36415; 80053; 80061; 82607; 82728; 83721; 85025

== ENCOUNTER 2019-06-22 12:41 | Outpatient (CLI) | payer MEDICARE, MEDICAID ==
--- NOTE | 2019-06-25 11:10 | Mammography Report ---
Reason: ROUTINE MAMMO Procedure Date: 06/22/2019 Accession Number: [id number] / [id number] Procedure: MGN - Screening Mammo Dig Bilat CPT Code: Final Report FULL RESULT: EXAM: Screening Mammo Dig Bilat DATE: 06/22/2019 1:16 PM CLINICAL HISTORY: Screening encounter. History of nulliparity. TECHNIQUE: (B) - Bilateral CC and MLO views were obtained. COMPARISON: 12/18/2014 through 06/16/2010. PARENCHYMAL PATTERN: (F) - The breast(s) demonstrate(s) diffuse fatty replacement. FINDINGS: There are no suspicious masses, calcifications, or areas of distortion. IMPRESSION: Negative examination. BI-RADS category 1. RECOMMENDATION: (ANNUAL) - Recommend routine annual screening mammography. BI-RADS CATEGORY: (1) - Negative. STANDARD QUALIFYING STATEMENTS: 1. This examination was not reviewed with the aid of Computer-Aided Detection (CAD). 2. A negative or benign imaging report should not preclude biopsy if clinically suspicious findings are present. 3. Dense breasts may obscure an underlying neoplasm. 4. This examination was reviewed without the aid of 3D breast imaging (tomosynthesis).
== END 2019-06-22 12:42 | disposition home or self-care (01) ==
LOC: DI.N 12:41
PROVIDERS: ATTEND Family Medicine
DX: Z12.31 Encounter for screening mammogram for malignant neoplasm of breast (principal)
CPT/HCPCS: 77067

== ENCOUNTER 2020-01-25 10:04 | Outpatient (CLI) | payer MEDICARE, MEDICAID ==
--- NOTE | 2020-01-25 11:04 | XRAY Report ---
PROCEDURE: Hand 3 View RT INDICATIONS: HAND PAIN, RIGHT TECHNIQUE: 3 views of the hand(s) acquired. COMPARISON: None FINDINGS: Bones: Moderate osteoarthritic changes are noted throughout right hand and wrist more prominent at f irst CMC joint, and interphalangeal joints. Diffuse osteopenia is seen. Small calcified fragment arm[place] cent to volar aspect of pisiform is seen suggestive of age-indeterminate fracture in this area. No o ther fracture or dislocation is seen. No suspicious bony lesions. Soft tissues: No suspicious soft tissue calcifications. IMPRESSION: 1. Finding is suggestive of age-indeterminate fracture involving the volar aspect of pisiform which c orresponds to patient's reported area of pain and bruising. 2. Diffuse osteopenia. Osteoarthritic changes throughout right hand and wrist. Reviewed by: Ryder Pizarro MD on 01/25/2020 11:03 AM PDT Approved by: Ryder Pizarro MD on 01/25/2020 11:03 AM PDT Station ID: [id number]
== END 2020-01-25 10:05 | disposition home or self-care (01) ==
LOC: DI 10:04
PROVIDERS: ATTEND Family Medicine
DX: M85.841 Other specified disorders of bone density and structure, right hand (principal); M19.041 Primary osteoarthritis, right hand

== ENCOUNTER 2020-01-31 11:01 | Outpatient (CLI) | payer MEDICARE, MEDICAID ==
--- NOTE | 2020-01-31 15:01 | XRAY Report ---
Reason: RIGHT WRIST PAIN Procedure Date: 01/31/2020 Accession Number: [id number] / [id number] Procedure: WCP - Wrist 4 View RT CPT Code: Final Report FULL RESULT: PROCEDURE: Wrist 4 View RT INDICATIONS: RIGHT WRIST PAIN TECHNIQUE: 3 views of the wrist were acquired. COMPARISON: Similar study 01/25/2020. FINDINGS: Bones: No fractures or dislocations, but there is degenerative osteoarthritic change that is most prominent at the base of the first metacarpal.. No suspicious bony lesions. Scaphoid view: Not obtained but the scaphoid visualized has appeared free of fracture. Soft tissues: No suspicious soft tissue calcifications. IMPRESSION: No acute trauma found. 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 If unusual symptoms persist follow-up CT or MR scanning may become necessary. Reviewed by: Ronnie Dinero MD on 01/31/2020 3:00 PM PDT Approved by: Ronnie Dinero MD on 01/31/2020 3:00 PM PDT Station ID: [id number]
== END 2020-01-31 11:02 | disposition home or self-care (01) ==
LOC: DI.WCP 11:01
PROVIDERS: ATTEND Family Medicine
DX: M18.11 Unilateral primary osteoarthritis of first carpometacarpal joint, right hand (principal)

== ENCOUNTER 2020-06-25 10:32 | Outpatient (CLI) | payer MEDICARE, MEDICAID | END 2020-06-25 10:33 | disposition critical access hospital (66) | LOC: EMS 10:32 | PROVIDERS: ATTEND Surgery | DX: M54.9 Dorsalgia, unspecified (principal); M79.606 Pain in leg, unspecified | CPT/HCPCS: A0425; A0429 ==

== ENCOUNTER 2020-06-25 10:52 | Emergency (ER) | payer MEDICARE, MEDICAID ==
[2020-06-25] MEDS ORDERED: HYDROcod/ACETAM 5/325 MG TABLET PO STA (11:32)
--- NOTE | 2020-06-25 11:34 | ED Physician Documentation ---
PD HPI BACK PAIN - Stated complaint Stated Complaint: BACK PX - Chief complaint Chief Complaint: Back Pain - History obtained from History obtained from: Patient - Additional information Additional information: 79-year-old woman who is very very hard of hearing, has a history of COPD presents from assisted living with back and hip pain on the right for the last 2 weeks. Sometimes have some left-sided back pain. There was no injury. Pain is present at rest and worsens with walking. She denies weakness numbness or tingling in the leg or saddle area. She is chronically incontinent without welsh ge. No fevers. Reportedly the son told EMS that there is a concern for drug- seeking. She is tried Tylenol without relief. 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 HEENT: Chronic vision loss, Chronic hearing loss Psych: Depression, Anxiety, Bipolar disorder, Schizophrenia Musculoskeletal: Chronic back pain Derm: Herpes zoster, Other - Past Surgical History Past Surgical History: Yes General: Cholecystectomy Cardiovascular: Angioplasty - Present Medications Home Medications: Ambulatory Orders Medication Instructions Recorded Confirmed Clopidogrel [Plavix] 75 mg PO DAILY 12/12/12 06/25/20 Escitalopram [Lexapro] 10 mg PO DAILY 12/12/12 06/25/20 Furosemide 20 mg PO DAILY 12/12/12 06/25/20 Lovastatin 40 mg PO DAILY 12/12/12 06/25/20 Prednisolone Acetate 1 drop RIGHTEYE DAILY 12/12/12 01/27/18 Triamcinolone 0.1% Cream [Kenalog 1 applic TOP DAILY 12/12/12 01/27/18 0.1% Cream] LORazepam [Ativan] 0.5 mg PO BID 04/24/15 01/27/18 Losartan [Cozaar] 100 mg PO QPM 08/17/16 06/25/20 Metoprolol Tartrate 50 mg PO BID 08/17/16 01/27/18 Mirtazapine 7.5 mg PO DAILY PM 08/17/16 01/27/18 guaiFENesin [Guaifenesin] 200 mg PO Q6H PRN 08/17/16 06/25/20 oxyCODONE [Roxicodone] 5 mg PO BID PRN 08/17/16 01/27/18 raNITIdine [Zantac] 150 mg PO DAILY 08/17/16 01/27/18 Acetaminophen 650 mg PO Q6H PRN 08/02/17 06/25/20 Albuterol Sulf [Ventolin Hfa 2 puffs INH Q3H PRN 08/02/17 06/25/20 Inhaler] Aspirin 81 mg PO DAILY 08/02/17 06/25/20 Budesonide [Pulmicort Flexhaler] 2 puffs INH BID 08/02/17 06/25/20 Cholecalciferol (Vitamin D3) 2,000 units PO DAILY 08/02/17 06/25/20 [Vitamin D3] Ipratropium/Albuterol [Duoneb] 3 ml INH QID 08/02/17 06/25/20 Polyvinyl Alcohol [Artificial 1 drops EACHEYE BID 08/02/17 01/27/18 Tears] Prednisone 10 mg PO DAILY 6 Days #18 tab.ds.pk 08/05/17 01/27/18 Erythromycin Base [Erythromycin 0.5 inch EACHEYE QID #3.5 oint...g. 01/27/18 Ophthalmic Ointment] Albuterol Sulf [Ventolin Hfa 2 puffs INH Q3H PRN 06/25/20 06/25/20 Inhaler] Rxbrs-H-Ziuepxwzlzsdm [Beanaid] 150 unit PO DAILY 06/25/20 06/25/20 Budesonide [Pulmicort] 0.5 mg INH BID 06/25/20 06/25/20 Carboxymethyl/Glycerin/Poly80 1 drops EACHEYE QID 06/25/20 06/25/20 [Refresh Digital Eye Drops] Clotrimazole/Betamethasone Crm 1 applic TOP BID PRN 06/25/20 06/25/20 [Lotrisone Cream] Famotidine [Pepcid] 20 mg DAILY 06/25/20 06/25/20 Ferrous Sulfate 325 mg PO DAILY 06/25/20 06/25/20 Fluticasone [Flonase] 1 sprays MATT BID 06/25/20 06/25/20 Ketoconazole/Niacinamide 1 applic TOP BID PRN 06/25/20 06/25/20 [Ketoconazole 2%-Niacin 4% Crm] Loperamide HCl [Imodium A-D] 2 mg PO DAILY PRN 06/25/20 06/25/20 Loratadine [Allergy Relief] 10 mg PO DAILY 06/25/20 06/25/20 Meloxicam [Mobic] 7.5 mg PO BID PRN #10 tablet 06/25/20 Nystatin [Nystop] 1 applic TOP DAILY PRN 06/25/20 06/25/20 predniSONE [Deltasone] 7.5 mg PO DAILY 06/25/20 06/25/20 - Allergies Allergies/Adverse Reactions: Allergies Allergy/AdvReac Type Severity Reaction Status Date / Time levofloxacin [From Levaquin] Allergy Severe Unknown Verified 01/27/18 12:42 - Social History Does the pt smoke?: No Smoking Status: Never smoker Does the pt drink ETOH?: No Does the pt have substance abuse?: No - Immunizations Immunizations are current?: Yes - POLST Patient has POLST: Yes PD ED PE NORMAL - Vitals Vital signs reviewed: Yes - General General: Alert and oriented X 3, No acute distress, Other (very [place]) - Back Back: No spinal TTP - Extremities Extremities: Other (Internal and external rotation of the hip appears grossly painless. The patient has equal and normal Achilles and patellar reflexes bilaterally. Normal sensation in all areas of the legs. Patient denies saddle anesthesia. Normal strength in flexion-extension at the ankles, knees, ) - Neuro Neuro: Alert and oriented X 3, Normal speech Results - Vitals Vitals: Vital Signs - 24 hr 06/25/20 11:09 Temperature 37.1 C Heart Rate 86 Respiratory 18 Rate Blood Pressure 144/70 H O2 Saturation 95 Oxygen O2 Source Room air - Rads (name of study) Rays of the right hip and lumbar spine Radiology: EMP read contemporaneously (Severe degenerative changes without acute fracture noted) PD MEDICAL DECISION MAKING - ED course ED course: It was passed along to me that EMS was told by her brother that there was a concern for drug-seeking behavior. I called him and asked where the concern was. He states that she has a history of hydrocodone abuse and this pain really has not seemed to affect her functionality much. Departure - Departure Disposition: 01 Home, Self Care Clinical Impression: Arthritis of right hip Back pain Qualifiers: Back pain location: low back pain Chronicity: acute Back pain laterality: right Sciatica presence: without sciatica Qualified Code(s): M54.5 - Low back pain Condition: Good Record reviewed to determine appropriate education?: Yes Instructions: ED Neck Back Pain General Prescriptions: Meloxicam [Mobic] 7.5 mg PO BID PRN #10 tablet PRN Reason: Pain Comments: Take Tylenol, 650 mg every 6 hours as needed for pain, also the Mobic as needed but do not want use the Mobic long-term because of potential side effects. She should follow-up with her physician. Return if worsening.
--- NOTE | 2020-06-25 12:24 | XRAY Report ---
PROCEDURE: Hip w/Pelvis 2-3V RT INDICATIONS: back/hip pain TECHNIQUE: AP pelvis with lateral view(s) of the bilateral hip(s). COMPARISON: None. FINDINGS: Severe right hip joint degeneration. No fracture. Lower lumbar spondylosis and facet arthropathy. Mod erate hip joint degeneration. Scattered vascular calcifications. IMPRESSION: No definite fracture however follow-up radiographs in 10 days could be performed if the patient's symptoms do not improve to exclude occult fracture/assess for healing sclerosis. Suboptimal evaluation given the advanced arthritic changes. Reviewed by: Fredy Diggs MD on 06/25/2020 12:23 PM PST Approved by: Fredy Diggs MD on 06/25/2020 12:23 PM PST Station ID: [id number]
--- NOTE | 2020-06-25 12:26 | XRAY Report ---
PROCEDURE: Lumbar Spine 2 View INDICATIONS: back/hip pain TECHNIQUE: 2 views of the lumbar spine were acquired. COMPARISON: None. FINDINGS: No fracture. Dextroscoliosis is seen. Scattered multilevel endplate spurring and diffuse facet arthro darren. Severe diffuse narrowing of the lumbar disc spaces. Soft tissues: Overlying bowel gas pattern is normal. Scattered vascular calcifications are present i n the aorta. No suspicious soft tissue calcifications. IMPRESSION: Dextroscoliosis Severe diffuse lumbar spondylosis and facet arthropathy. Reviewed by: Fredy Diggs MD on 06/25/2020 12:25 PM PST Approved by: Fredy Diggs MD on 06/25/2020 12:25 PM PST Station ID: [id number]
[2020-06-25 13:04] VITALS: BP 162/52
== END 2020-06-25 13:13 | disposition home or self-care (01) ==
LOC: EDUNIT# → ED 10:52
DX: M16.11 Unilateral primary osteoarthritis, right hip (principal); M47.816 Spondylosis without myelopathy or radiculopathy, lumbar region; M41.86 Other forms of scoliosis, lumbar region; J44.9 Chronic obstructive pulmonary disease, unspecified; I10 Essential (primary) hypertension; H91.90 Unspecified hearing loss, unspecified ear; Z79.02 Long term (current) use of antithrombotics/antiplatelets; Z79.82 Long term (current) use of aspirin
CPT/HCPCS: 72100; 73502; 99283; 99284; A9270

== ENCOUNTER 2020-08-25 05:26 | Outpatient (CLI) | payer MEDICARE, MEDICAID | END 2020-08-25 05:27 | disposition critical access hospital (66) | LOC: EMS 05:26 | PROVIDERS: ATTEND Emergency Medicine | DX: S09.90XA Unspecified injury of head, initial encounter (principal); M25.552 Pain in left hip; W18.30XA Fall on same level, unspecified, initial encounter; Y93.01 Activity, walking, marching and hiking; Y92.190 Kitchen in other specified residential institution as the place of occurrence of the external cause | CPT/HCPCS: A0425; A0429 ==

== ENCOUNTER 2020-08-25 05:45 | Emergency (ER) | payer MEDICARE, MEDICAID ==
--- NOTE | 2020-08-25 06:02 | ED Physician Documentation ---
PD HPI Fall - Stated complaint Stated Complaint: GLF, LEFT HIP PAIN, HEAD INJURY - Chief complaint Chief Complaint: Trauma Hd/Nk - History obtained from History obtained from: Patient, EMS - History of Present Illness Mechanism of injury: Unknown Fall distance: Standing position Where injury occurred: Home Timing - onset: Enter time (11:30 PM last night) Injury(ies) location: Head Pain level max: 0 Pain level now: 0 Quality of pain: No: Pain Associated symptoms: No: LOC Contributing factors: Anticoagulated - Additional information Additional information: BIBA. Patient is at an assisted living facility. staff checked on patient this AM and found her on the floor of her kitchen. Patient says she thinks she fell at approximately 11:30 PM last night but she cannot say why she fell; she indicates she sometimes has weakness in her legs due to an ongoing back problem and she says this might have caused her to fall. She indicates to me that she could not get back up off the floor but she cannot say why. When I ask her if she is having any pain, she says she is not. When I ask her if she couldn't get up because of any pain, she says no. I ask her if she couldn't get up because of weakness, and she again says no. She continues to not be able to give an answer as to why she could not stand back up. [facility] from [facility] indicate that amongst her diagnoses is developmental delay. patient is on plavix. She says she hit the back of her head on the linoleum floor but she denies headache. She had told medics she had left hip pain, but she denies any hip pain on my HPI. Review of Systems Constitutional: denies: Fever Cardiac: reports: Reviewed and negative Respiratory: reports: Reviewed and negative GI: reports: Reviewed and negative : denies: Dysuria, Frequency Musculoskeletal: reports: Joint pain (EMS says patient had been c/o left hip pain but she denies this on my HPI) Neurologic: reports: Head injury. 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 HEENT: Chronic vision loss, Chronic hearing loss Psych: Depression, Anxiety, Bipolar disorder, Schizophrenia Musculoskeletal: Chronic back pain Derm: Herpes zoster, Other - Past Surgical History Past Surgical History: Yes General: Cholecystectomy Cardiovascular: Angioplasty - Present Medications Home Medications: Ambulatory Orders Medication Instructions Recorded Confirmed Clopidogrel [Plavix] 75 mg PO DAILY 12/12/12 08/25/20 Escitalopram [Lexapro] 10 mg PO DAILY 12/12/12 08/25/20 Furosemide 20 mg PO DAILY 12/12/12 08/25/20 Lovastatin 40 mg PO DAILY 12/12/12 08/25/20 Losartan [Cozaar] 100 mg PO QPM 08/17/16 08/25/20 guaiFENesin [Guaifenesin] 200 mg PO Q6H PRN 08/17/16 08/25/20 Acetaminophen 650 mg PO Q6H PRN 08/02/17 08/25/20 Albuterol Sulf [Ventolin Hfa 2 puffs INH Q3H PRN 08/02/17 08/25/20 Inhaler] Budesonide [Pulmicort Flexhaler] 2 puffs INH BID 08/02/17 08/25/20 Polyvinyl Alcohol [Artificial 1 drops EACHEYE BID 08/02/17 08/25/20 Tears] Azhep-H-Izwtrzsxhwfjz [Beanaid] 150 unit PO DAILY 06/25/20 08/25/20 Famotidine [Pepcid] 20 mg DAILY 06/25/20 08/25/20 Ferrous Sulfate 325 mg PO DAILY 06/25/20 08/25/20 Fluticasone [Flonase] 1 sprays MATT BID 06/25/20 08/25/20 Loperamide HCl [Imodium A-D] 2 mg PO DAILY PRN 06/25/20 08/25/20 Loratadine [Allergy Relief] 10 mg PO DAILY 06/25/20 08/25/20 Meloxicam [Mobic] 7.5 mg PO BID PRN #10 tablet 06/25/20 08/25/20 predniSONE [Deltasone] 7.5 mg PO DAILY 06/25/20 08/25/20 - Allergies Allergies/Adverse Reactions: Allergies Allergy/AdvReac Type Severity Reaction Status Date / Time levofloxacin [From Levaquin] Allergy Severe Unknown Verified 08/25/20 05:57 - Social History Does the pt smoke?: No Smoking Status: Never smoker Does the pt drink ETOH?: No Does the pt have substance abuse?: No - Immunizations Immunizations are current?: Yes - POLST Patient has POLST: Yes PD ED PE NORMAL - Vitals Vital signs reviewed: Yes - General General: Alert and oriented X 3 (she is able to rapidly and accurately answer orientation questions x 3 (name, location, month). 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, No motor deficit, No sensory deficit, Normal speech Results - Vitals Vitals: Vital Signs - 24 hr 08/25/20 05:45 Temperature 36.4 C L Heart Rate 89 Respiratory 23 Rate Blood Pressure 166/93 H O2 Saturation 99 Oxygen O2 Source Room air - EKG (time done) No standard instances Rate: Rate (enter#) (79) Rhythm: NSR [place]: Normal Intervals: Normal [place], RBBB QRS: Normal Ischemia: Normal ST segments Computer interpretation: Disagree with computer (no ST changes noted (some artifact noted in V2 and V5 but this does not preclude interpretation)) - Labs Labs: Laboratory Tests 08/25/20 08/25/20 08/25/20 05:45 05:45 05:45 WBC 7.6 RBC 4.03 L Hgb 11.8 L Hct 38.2 MCV 94.8 MCH 29.3 MCHC 30.9 L RDW 14.3 Plt Count 176 MPV 11.0 H Neut # (Auto) 5.6 Lymph # (Auto) 0.8 L [place] # (Auto) 0.6 Eos # (Auto) 0.6 Baso # (Auto) 0.0 Absolute Nucleated RBC 0.00 Nucleated RBC % 0.0 Sodium 135 Potassium 4.2 Chloride 100 L Carbon Dioxide 24 Anion Gap 11.0 BUN 56 H Creatinine 3.2 H Estimated GFR (MDRD) 14 L Glucose 92 Calcium 9.1 Total Creatine Kinase 2464 H* CK-MB (CK-2) 48.7 H - Rads (name of study) CT head Radiology: Prelim report reviewed, See rad report PD MEDICAL DECISION MAKING - ED course Complexity details: reviewed old records, reviewed results, re-evaluated patient, considered differential, d/w patient ED course: patient says she feels "fine", repeatedly denies any pain or new weakness (unclear why she could not get up from the floor since last night). She has a high CPK, presumably from being on the floor. Blood tests also significant for elevated BUN and creatinine. While the BUN is not significantly off from her baseline, the creatinine is notably higher than baseline. Plan is to recheck these labs after IV fluids and disposition based on reassessment; care of patient turned over to oncoming ED physician at end of my shift pending disposition.
[2020-08-25 06:10] LABS: BASOPHILS % (AUTO) 0.1 %; EOSINOPHILS # (AUTO) 0.6 10^3/uL (0.0-0.7); EOSINOPHILS % (AUTO) 7.3 %; HGB - HEMOGLOBIN 11.8 g/dL (12.0-16.0); LYMPHOCYTES # (AUTO) 0.8 10^3/uL (1.5-3.5); LYMPHOCYTES % (AUTO) 10.5 %; MEAN CORPUSCULAR HEMOGLOBIN 29.3 pg (27.0-31.0); MEAN CORPUSCULAR HGB CONC 30.9 g/dL (32.0-36.0); MEAN CORPUSCULAR VOLUME 94.8 fL (81.0-99.0); MONOCYTES # (AUTO) 0.6 10^3/uL (0.0-1.0); MONOCYTES % (AUTO) 7.7 %; NEUTROPHILS # (AUTO) 5.6 10^3/uL (1.5-6.6); NEUTROPHILS % (AUTO) 74.1 %; PLT - PLATELET COUNT 176 10^3/uL (130-450); RED BLOOD COUNT 4.03 10^6/uL (4.20-5.40); RED CELL DISTRIBUTION WIDTH 14.3 % (12.0-15.0); WHITE BLOOD COUNT 7.6 x10^3/uL (4.8-10.8)
[2020-08-25 06:27] LABS: CALCIUM 9.1 mg/dL (8.5-10.3); CREATININE 3.2 mg/dL (0.4-1.0)
[2020-08-25] MEDS ORDERED: SODIUM CHLORIDE 0.9% 1,000 ML IV STA ×3 (06:41→09:13)
[2020-08-25] MEDS ORDERED: SODIUM CHLORIDE 0.9% 500 ML IV STA (06:41)
--- NOTE | 2020-08-25 07:03 | CT Report ---
PROCEDURE: HEAD WO INDICATIONS: fall, head injury, on anticoagulant TECHNIQUE: Noncontrast 4.5 mm thick angled axial sections acquired from the foramen magnum to the vertex. For r adiation dose reduction, the following was used: automated exposure control, adjustment of mA and/or kV according to patient size. COMPARISON: 11/10/2016 and 08/17/2016. FINDINGS: Image quality: Excellent. CSF spaces: Basal cisterns are patent. No extra-axial fluid collections. The ventricles are symmet richard in size and shape. Brain: No intracranial bleeds or masses. 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 There is cerebral volume loss for age, with resultant ventric ular and sulcal prominence. There are periventricular and deep white matter chronic small vessel isc hemic changes. There is intracranial internal carotid artery and vertebral artery left parietal scal p hematoma. Atherosclerosis. Skull and face: Calvarium and visualized facial bones appear intact, without suspicious lesions. Sinuses: Visualized sinuses and mastoids are clear. IMPRESSION: No acute intracranial disease process. Reviewed by: Yesenia Echols MD, PhD on 08/25/2020 7:02 AM [facility] Approved by: Yesenia Echols MD, PhD on 08/25/2020 7:02 AM PST Station ID: [id number]
[2020-08-25 09:03] LABS: CALCIUM 8.2 mg/dL (8.5-10.3); CREATININE 2.8 mg/dL (0.4-1.0)
--- NOTE | 2020-08-25 10:32 | XRAY Report ---
PROCEDURE: Chest 1 View X-Ray INDICATIONS: chest pain TECHNIQUE: One view of the chest was acquired. COMPARISON: 08/02/2017 FINDINGS: Surgical changes and devices: Surgical clips are noted in right neck soft tissue.. Lungs and pleura: No pleural effusions or pneumothorax. There is mild pulmonary vascular congestion and chronic emphysematous changes. Mediastinum: Mediastinal contours appear normal. Heart size is enlarged. Bones and chest wall: No suspicious bony lesions. Overlying soft tissues appear unremarkable. IMPRESSION: Cardiomegaly and mild congestion. No focal infiltrate. No pleural effusion or pneumothorax. Reviewed by: Ryder Pizarro MD on 08/25/2020 10:31 AM [facility] Approved by: Ryder Pizarro MD on 08/25/2020 10:31 AM PST Station ID: [id number]
[2020-08-25 11:11] LABS: CALCIUM 8.1 mg/dL (8.5-10.3); CREATININE 2.5 mg/dL (0.4-1.0)
[2020-08-25 14:15] VITALS: BP 147/87
== END 2020-08-25 14:25 | disposition home or self-care (01) ==
LOC: EDUNIT# → ED 05:45
DX: S09.90XA Unspecified injury of head, initial encounter (principal); M25.552 Pain in left hip; W18.30XA Fall on same level, unspecified, initial encounter; Y92.090 Kitchen in other non-institutional residence as the place of occurrence of the external cause; I10 Essential (primary) hypertension; I25.10 Atherosclerotic heart disease of native coronary artery without angina pectoris; Z98.61 Coronary angioplasty status; Z79.02 Long term (current) use of antithrombotics/antiplatelets; I45.10 Unspecified right bundle-branch block; R79.89 Other specified abnormal findings of blood chemistry
CPT/HCPCS: 36415; 80048; 82550; 82553; 85025; 93005; 96360; 96361; 99284

== ENCOUNTER 2020-08-30 09:15 | Outpatient (CLI) | payer MEDICARE, MEDICAID | END 2020-08-30 09:16 | disposition critical access hospital (66) | LOC: EMS 09:15 | PROVIDERS: ATTEND Emergency Medicine | DX: R41.0 Disorientation, unspecified (principal) | CPT/HCPCS: A0425; A0429 ==

== ENCOUNTER 2020-08-30 09:44 | Emergency (ER) | payer MEDICARE, MEDICAID ==
[2020-08-30] MEDS ORDERED: IPRATROPIUM/ALBUTEROL 3 ML NEB INH STA (09:59)
[2020-08-30] MEDS ORDERED: DEXAMETHASONE 10 MG/ML VIAL IVP STA (10:00)
[2020-08-30 10:12] LABS: BASOPHILS % (AUTO) 0.2 %; EOSINOPHILS # (AUTO) 0.4 10^3/uL (0.0-0.7); EOSINOPHILS % (AUTO) 4.9 %; HGB - HEMOGLOBIN 11.6 g/dL (12.0-16.0); LYMPHOCYTES # (AUTO) 0.8 10^3/uL (1.5-3.5); LYMPHOCYTES % (AUTO) 8.7 %; MEAN CORPUSCULAR HEMOGLOBIN 29.7 pg (27.0-31.0); MEAN CORPUSCULAR HGB CONC 31.6 g/dL (32.0-36.0); MEAN CORPUSCULAR VOLUME 93.9 fL (81.0-99.0); MEAN PLATELET VOLUME 10.6 fL (7.9-10.8); MONOCYTES # (AUTO) 0.8 10^3/uL (0.0-1.0); MONOCYTES % (AUTO) 9.5 %; NEUTROPHILS # (AUTO) 6.6 10^3/uL (1.5-6.6); NEUTROPHILS % (AUTO) 76.1 %; PLT - PLATELET COUNT 213 10^3/uL (130-450); RED BLOOD COUNT 3.91 10^6/uL (4.20-5.40); RED CELL DISTRIBUTION WIDTH 14.2 % (12.0-15.0); WHITE BLOOD COUNT 8.7 x10^3/uL (4.8-10.8)
[2020-08-30 10:25] LABS: ALBUMIN 3.7 g/dL (3.2-5.5); ALBUMIN/GLOBULIN RATIO 1.4 (1.0-2.2); BILIRUBIN,TOTAL 0.7 mg/dL (0.2-1.0); CALCIUM 9.5 mg/dL (8.5-10.3); CREATININE 2.2 mg/dL (0.4-1.0); MAGNESIUM 1.5 mg/dL (1.7-2.8); TOTAL PROTEIN 6.3 g/dL (6.7-8.2)
--- NOTE | 2020-08-30 10:42 | XRAY Report ---
PROCEDURE: Chest 1 View X-Ray INDICATIONS: chest pain TECHNIQUE: One view of the chest was acquired. COMPARISON: 08/25/2020, 05/07/2015, 04/26/2015 FINDINGS: Surgical changes and devices: Right neck surgical clips are seen. Lungs and pleura: No pleural effusions or pneumothorax. Lungs are clear. Mediastinum: The aorta is prominent and tortuous. The cardiac contours are within normal limits. Bones and chest wall: No suspicious bony lesions. Age-appropriate degenerative changes are seen, pa rticularly involving the right shoulder. Overlying soft tissues appear unremarkable. IMPRESSION: No acute plain film abnormality is seen. Resolution of the previously seen edema. Postoperative and degenerative changes are seen. Reviewed by: Kristofer Canales MD on 08/30/2020 9:41 AM [facility] Approved by: Kristofer Canales MD on 08/30/2020 9:41 AM [facility] Station ID: [id number]
[2020-08-30] MEDS ORDERED: FUROSEMIDE 20 MG/2 ML VIAL IVP STA (11:21)
[2020-08-30] MEDS ORDERED: ALBUTEROL NEB 2.5 MG/3 ML INH STA (12:33)
--- NOTE | 2020-08-30 13:24 | ED Physician Documentation ---
PD HPI DYSPNEA - Stated complaint Stated Complaint: AMS - Chief complaint Chief Complaint: General - History obtained from History obtained from: Patient, EMS - History of Present Illness Timing - onset: Last night (She had a coughing episode last night and was concerned she may have aspirated. She had not had any fevers per se. She seems short of breath this morning and has wheezing. Referred to the ER by EMS.) Timing - onset during: Rest Timing - details: Gradual onset (She had apparently a coughing or possible choking type episode last evening but then was doing okay. Feeling short of breath this morning. History of COPD as well as CHF.), Still present Inciting event(s): URI (has had some cough and wheezing the past day) Improved by: O2, Other (No particular treatments by EMS on route.) Associated symptoms: Cough, Wheezing. No: Fever, Hemoptysis, Chest pain / discomfort, Bilateral edema Similar symptoms before: Diagnosis (has had COPD/asthma as well as some CHF in the past.) Recently seen: Not recently seen Review of Systems Constitutional: denies: Fever, Chills Nose: reports: Congestion. denies: Rhinorrhea / runny nose Throat: denies: Sore throat Cardiac: denies: Chest pain / pressure, Palpitations, Pedal edema Respiratory: reports: Dyspnea, Cough, Wheezing GI: denies: Abdominal Pain, Nausea, Vomiting, Diarrhea Neurologic: reports: Generalized weakness. 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 HEENT: Chronic vision loss, Chronic hearing loss Psych: Depression, Anxiety, Bipolar disorder, Schizophrenia Musculoskeletal: Chronic back pain Derm: Herpes zoster, Other - Past Surgical History Past Surgical History: Yes General: Cholecystectomy Cardiovascular: Angioplasty - Present Medications Home Medications: Ambulatory Orders Medication Instructions Recorded Confirmed Clopidogrel [Plavix] 75 mg PO DAILY 12/12/12 08/30/20 Escitalopram [Lexapro] 10 mg PO DAILY 12/12/12 08/30/20 Furosemide 20 mg PO DAILY 12/12/12 08/30/20 Lovastatin 40 mg PO DAILY 12/12/12 08/30/20 Losartan [Cozaar] 100 mg PO QPM 08/17/16 08/30/20 guaiFENesin [Guaifenesin] 200 mg PO Q6H PRN 08/17/16 08/30/20 Acetaminophen 650 mg PO Q6H PRN 08/02/17 08/30/20 Albuterol Sulf [Ventolin Hfa 2 puffs INH Q3H PRN 08/02/17 08/30/20 Inhaler] Budesonide [Pulmicort Flexhaler] 2 puffs INH BID 08/02/17 08/30/20 Polyvinyl Alcohol [Artificial 1 drops EACHEYE BID 08/02/17 08/30/20 Tears] [id number] [Beanaid] 150 unit PO DAILY 06/25/20 08/30/20 Famotidine [Pepcid] 20 mg DAILY 06/25/20 08/30/20 Ferrous Sulfate 325 mg PO DAILY 06/25/20 08/30/20 Fluticasone [Flonase] 1 sprays MATT BID 06/25/20 08/30/20 Loperamide HCl [Imodium A-D] 2 mg PO DAILY PRN 06/25/20 08/30/20 Loratadine [Allergy Relief] 10 mg PO DAILY 06/25/20 08/30/20 Meloxicam [Mobic] 7.5 mg PO BID PRN #10 tablet 06/25/20 08/30/20 predniSONE [Deltasone] 7.5 mg PO DAILY 06/25/20 08/30/20 - Allergies Allergies/Adverse Reactions: Allergies Allergy/AdvReac Type Severity Reaction Status Date / Time levofloxacin [From Levaquin] Allergy Severe Unknown Verified 08/30/20 09:58 - Social History Does the pt smoke?: No Smoking Status: Never smoker Does the pt drink ETOH?: No Does the pt have substance abuse?: No - Immunizations Immunizations are current?: Yes - POLST Patient has POLST: Yes PD ED PE NORMAL - Vitals Vital signs reviewed: Yes - General General: Alert and oriented X 3, No acute distress, Well developed/nourished - HEENT HEENT: Pharynx benign - Neck Neck: Supple, no meningeal sign, No adenopathy - Cardiac Cardiac: RRR, No murmur - Respiratory Respiratory: No: Clear bilaterally (She does have some prolonged expiratory phase and some generalized wheezing particularly upper lobes. No coarse sounds are heard.) - Abdomen Abdomen: Soft, Non tender - Back Back: No CVA TTP - Derm Derm: Normal color, Warm and dry - Extremities Extremities: No tenderness to palpate, Normal ROM s pain, No edema, No calf tenderness / cord - Neuro Neuro: Alert and oriented X 3, No motor deficit, Normal speech Results - Vitals Vitals: Vital Signs - 24 hr 08/30/20 08/30/20 08/30/20 09:45 09:59 10:36 Temperature 36.5 C Heart Rate 100 93 90 Respiratory 18 22 20 Rate Blood Pressure 129/77 129/48 L O2 Saturation 100 100 08/30/20 08/30/20 08/30/20 12:00 12:50 14:00 Temperature Heart Rate 90 93 109 H Respiratory 18 16 18 Rate Blood Pressure 132/71 H 137/51 H O2 Saturation 95 95 08/30/20 15:52 Temperature 37 C Heart Rate 108 H Respiratory 18 Rate Blood Pressure 152/64 H O2 Saturation 95 Oxygen O2 Source Room air - Labs Labs: Laboratory Tests 08/30/20 08/30/20 08/30/20 10:08 10:08 10:08 WBC 8.7 RBC 3.91 L Hgb 11.6 L Hct 36.7 L MCV 93.9 MCH 29.7 MCHC 31.6 L RDW 14.2 Plt Count 213 MPV 10.6 Neut # (Auto) 6.6 Lymph # (Auto) 0.8 L Haralson # (Auto) 0.8 Eos # (Auto) 0.4 Baso # (Auto) 0.0 Absolute Nucleated RBC 0.00 Nucleated RBC % 0.0 Sodium 138 Potassium 4.4 Chloride 99 L Carbon Dioxide 24 Anion Gap 15.0 H BUN 30 H Creatinine 2.2 H Estimated GFR (MDRD) 22 L Glucose 100 Calcium 9.5 Magnesium 1.5 L Total Bilirubin 0.7 AST 49 H ALT 75 H Alkaline Phosphatase 39 L Troponin I High Sens B-Natriuretic Peptide 1200 H Total Protein 6.3 L Albumin 3.7 Globulin 2.6 Albumin/Globulin Ratio 1.4 08/30/20 08/30/20 10:08 12:04 WBC RBC Hgb Hct MCV MCH MCHC RDW Plt Count MPV Neut # (Auto) Lymph # (Auto) Haralson # (Auto) Eos # (Auto) Baso # (Auto) Absolute Nucleated RBC Nucleated RBC % Sodium Potassium Chloride Carbon Dioxide Anion Gap BUN Creatinine Estimated GFR (MDRD) Glucose Calcium Magnesium Total Bilirubin AST ALT Alkaline Phosphatase Troponin I High Sens 105.7 H* 97.7 H* B-Natriuretic Peptide Total Protein Albumin Globulin Albumin/Globulin Ratio - Rads (name of study) chest xray Radiology: Prelim report reviewed (no acute abnormality noted. Resolution of prior edema. ), See rad report PD MEDICAL DECISION MAKING - ED course Complexity details: reviewed results, considered differential (No infiltrates on chest x-ray. She does have some wheezing that improves with nebulizers. She has an elevated BNP so there may be some component of CHF as well. No gross edema in the extremities nor coarse sounds. She does seem well enough.), d/w patient Departure - Departure Disposition: 01 Home, Self Care Clinical Impression: Dyspnea, Acute exacerbation of COPD with asthma, CHF (congestive heart failure) Condition: Stable Record reviewed to determine appropriate education?: Yes Instructions: COPD Dc Follow-Up: Junaid Pedraza MD [Primary Care Provider] - Comments: I think your trouble breathing was more related to flareup of asthma, reactive airway. There is some element of fluid in the lungs as well. Be sure to use your albuterol inhaler 2 puffs 4 times a day for the next several days to a week. Continue your other usual medications. Increase your Lasix from once daily to twice daily with the doses being in the morning and again early afternoon at 1 PM. This would be for 4 days and then back to the once daily. Contact your primary care early this coming week for an update on how you are feeling.
[2020-08-30 17:08] VITALS: BP 139/82
== END 2020-08-30 17:00 | disposition home or self-care (01) ==
LOC: EDUNIT# → ED 09:44
DX: J44.1 Chronic obstructive pulmonary disease with (acute) exacerbation (principal); I11.0 Hypertensive heart disease with heart failure; I50.9 Heart failure, unspecified; I45.2 Bifascicular block; Z79.02 Long term (current) use of antithrombotics/antiplatelets
CPT/HCPCS: 36415; 80053; 83735; 83880; 84484; 85025; 93005; 94640; 96374; 96375; 99284

== ENCOUNTER 2020-12-17 08:40 | Outpatient (CLI) | payer MEDICARE, MEDICAID | END 2020-12-17 08:41 | disposition critical access hospital (66) | LOC: EMS 08:40 | DX: R11.10 Vomiting, unspecified (principal); R50.9 Fever, unspecified | CPT/HCPCS: A0425; A0427 ==

== ENCOUNTER 2020-12-17 09:00 | Inpatient (IN) | payer MEDICARE, MEDICAID ==
[2020-12-17] MEDS ORDERED: ONDANSETRON 4 MG/2 ML VIAL IVP STA (09:11)
[2020-12-17] MEDS ORDERED: SODIUM CHLORIDE 0.9% 1,000 ML IV STA (09:11)
[2020-12-17 09:26] LABS: BASOPHILS % (AUTO) 0.2 %; EOSINOPHILS % (AUTO) 0.1 %; HCT - HEMATOCRIT 39.3 % (37.0-47.0); HGB - HEMOGLOBIN 12.2 g/dL (12.0-16.0); LYMPHOCYTES # (AUTO) 0.5 10^3/uL (1.5-3.5); LYMPHOCYTES % (AUTO) 2.4 %; MEAN CORPUSCULAR HEMOGLOBIN 30.8 pg (27.0-31.0); MEAN CORPUSCULAR VOLUME 99.2 fL (81.0-99.0); MEAN PLATELET VOLUME 10.3 fL (7.9-10.8); MONOCYTES # (AUTO) 0.3 10^3/uL (0.0-1.0); MONOCYTES % (AUTO) 1.6 %; NEUTROPHILS # (AUTO) 18.2 10^3/uL (1.5-6.6); NEUTROPHILS % (AUTO) 95.2 %; PLT - PLATELET COUNT 216 10^3/uL (130-450); RED BLOOD COUNT 3.96 10^6/uL (4.20-5.40); RED CELL DISTRIBUTION WIDTH 13.3 % (12.0-15.0); WHITE BLOOD COUNT 19.1 x10^3/uL (4.8-10.8)
--- NOTE | 2020-12-17 09:29 | ED Physician Documentation ---
History of Present Illness - Stated complaint Stated Complaint: N/V - Chief complaint Chief Complaint: Resp - History obtained from History obtained from: Patient, EMS - Additonal information Additional information: Patient comes emergency department via EMS for chief complaint of vomiting, diarrhea, and occasional cough. Patient states vomiting just started today, but diarrhea started yesterday afternoon. She states that yesterday she felt otherwise fine but that this morning, she began to feel weak and nauseated. No dysuria. No focal abdominal pain. No fevers as far she knows. She denies shortness of breath, though she does chronically have COPD, and medics found her oxygen saturation to be in the upper 80s. Patient does not chronically use supplemental oxygen at home. No recent antibiotics. Patient states that she is still feeling a little nauseated right now but better than she was. No other complaints at this time. Review of Systems Ten Systems: 10 systems reviewed and negative Constitutional: reports: Reviewed and negative Eyes: reports: Reviewed and negative Ears: reports: Reviewed and negative Nose: reports: Reviewed and negative Throat: reports: Reviewed and negative Cardiac: reports: Reviewed and negative Respiratory: reports: Cough GI: reports: Nausea, Vomiting, Diarrhea. 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 HEENT: Chronic vision loss, Chronic hearing loss Psych: Depression, Anxiety, Bipolar disorder, Schizophrenia Musculoskeletal: Chronic back pain Derm: Herpes zoster, Other Other Past Medical History: developmentally delayed - Past Surgical History Past Surgical History: Yes General: Cholecystectomy Cardiovascular: Angioplasty - Present Medications Home Medications: Ambulatory Orders Medication Instructions Recorded Confirmed Clopidogrel [Plavix] 75 mg PO DAILY 12/12/12 12/17/20 Escitalopram [Lexapro] 10 mg PO DAILY 12/12/12 12/17/20 Furosemide 20 mg PO DAILY 12/12/12 12/17/20 Lovastatin 40 mg PO DAILY 12/12/12 12/17/20 Losartan [Cozaar] 100 mg PO QPM 08/17/16 12/17/20 guaiFENesin [Guaifenesin] 200 mg PO Q6H PRN 08/17/16 12/17/20 Acetaminophen 650 mg PO Q6H PRN 08/02/17 12/17/20 Albuterol Sulf [Ventolin Hfa 2 puffs INH Q3H PRN 08/02/17 12/17/20 Inhaler] Budesonide [Pulmicort Flexhaler] 2 puffs INH BID 08/02/17 12/17/20 Polyvinyl Alcohol [Artificial 1 drops EACHEYE BID 08/02/17 12/17/20 Tears] [id number] [Beanaid] 150 unit PO DAILY 06/25/20 12/17/20 Famotidine [Pepcid] 20 mg DAILY 06/25/20 12/17/20 Ferrous Sulfate 325 mg PO DAILY 06/25/20 12/17/20 Fluticasone [Flonase] 1 sprays MATT BID 06/25/20 12/17/20 Loperamide HCl [Imodium A-D] 2 mg PO DAILY PRN 06/25/20 12/17/20 Loratadine [Allergy Relief] 10 mg PO DAILY 06/25/20 12/17/20 Meloxicam [Mobic] 7.5 mg PO BID PRN #10 tablet 06/25/20 12/17/20 predniSONE [Deltasone] 2.5 mg PO DAILY 06/25/20 12/17/20 Olopatadine HCl [Pataday Once 2.5 ml OP DAILY 12/17/20 12/17/20 Daily Relief] Sulfamethox/Trimeth 800/160 1 tab BID 12/17/20 12/17/20 [Bactrim Ds] - Allergies Allergies/Adverse Reactions: Allergies Allergy/AdvReac Type Severity Reaction Status Date / Time levofloxacin [From Levaquin] Allergy Severe Unknown Verified 12/17/20 09:27 perfume Allergy Unknown Verified 12/17/20 09:27 metals gold silver Allergy Unknown Uncoded 12/17/20 09:27 - Social History Does the pt smoke?: No Smoking Status: Never smoker Does the pt drink ETOH?: No Does the pt have substance abuse?: No - Immunizations Immunizations are current?: Yes - POLST Patient has POLST: Yes PD ED PE NORMAL - Vitals Vital signs reviewed: Yes - General General: No acute distress, Well developed/nourished, Other (Very hard of hearing: Grossly oriented and answers questions, but drowsy.) - HEENT HEENT: Atraumatic, PERRL, EOMI, Moist mucous membranes - Neck Neck: Supple, no meningeal sign - Cardiac Cardiac: RRR, No murmur - Respiratory Respiratory: No respiratory distress, Clear bilaterally - Abdomen Abdomen: Soft, Non distended, Other (Mild diffuse tenderness, no rebound or guarding.) - Derm Derm: Normal color, Warm and dry, No rash - Extremities Extremities: No deformity, No edema, No calf tenderness / cord - Neuro Neuro: Other (Patient is awake and answers questions, but somewhat slow and drowsy. No gross deficits otherwise.) - Psych Psych: Normal mood, Normal affect Results - Vitals Vitals: Vital Signs - 24 hr 12/17/20 12/17/20 12/17/20 10:58 11:28 12:00 Temperature 36.2 C L 39.3 C H Heart Rate 95 100 102 H Respiratory 26 H 23 20 Rate Blood Pressure 166/63 H 164/58 H 157/40 H O2 Saturation 100 94 85 L 12/17/20 12/17/20 12/17/20 12:20 12:30 13:00 Temperature 39.3 C H Heart Rate 106 H 100 94 Respiratory 24 24 20 Rate Blood Pressure 157/40 H 130/56 L 143/52 H O2 Saturation 93 94 Oxygen O2 Source Room air Oxygen Flow Rate 2 - Labs Labs: Laboratory Tests 12/17/20 12/17/20 12/17/20 09:22 09:22 12:15 WBC 19.1 H RBC 3.96 L Hgb 12.2 Hct 39.3 MCV 99.2 H MCH 30.8 MCHC 31.0 L RDW 13.3 Plt Count 216 MPV 10.3 Neut # (Auto) 18.2 H Lymph # (Auto) 0.5 L Emery # (Auto) 0.3 Eos # (Auto) 0.0 Baso # (Auto) 0.0 Absolute Nucleated RBC 0.00 Nucleated RBC % 0.0 Sodium 144 Potassium 4.4 Chloride 107 Carbon Dioxide 28 Anion Gap 9.0 BUN 42 H Creatinine 1.3 H Estimated GFR (MDRD) 40 L Glucose 118 H Lactic Acid Calcium 8.8 Total Bilirubin 0.7 AST 21 ALT 20 Alkaline Phosphatase 42 Total Protein 5.9 L Albumin 3.6 Globulin 2.3 Albumin/Globulin Ratio 1.6 Lipase 101 H Urine Color YELLOW Urine Clarity SL. CLOUDY Urine pH 6.0 Ur Specific Sinclair 1.020 Urine Protein 30 H Urine Glucose (UA) NEGATIVE Urine Ketones NEGATIVE Urine Occult Blood MODERATE H Urine Nitrite NEGATIVE Urine Bilirubin NEGATIVE Urine Urobilinogen 0.2 (NORMAL) Ur Leukocyte Esterase SMALL H Urine RBC 11-25 H Urine WBC 11-25 H Ur Squamous Epith Cells FEW Squamous Amorphous Sediment Few Urine Bacteria Few Urine Mucus Moderate Strands Ur Microscopic Review INDICATED Urine Culture Comments INDICATED Nasal Adenovirus (PCR) Nasal B. parapertussis DNA (PCR) Nasal Coronavir 229E PCR Nasal Coronavir HKU1 PCR Nasal Coronavir NL63 PCR Nasal Coronavir OC43 PCR Nasal Enterovir/Rhinovir PCR Nasal Influenza B PCR Nasal Influenza A PCR Nasal Parainfluen 1 PCR Nasal Parainfluen 2 PCR Nasal Parainfluen 3 PCR Nasal Parainfluen 4 PCR Nasal RSV (PCR) Nasal B.pertussis DNA PCR Nasal C.pneumoniae (PCR) Matt Human Metapneumo PCR Nasal M.pneumoniae (PCR) Nasal SARS-CoV-2 (PCR) 12/17/20 12/17/20 12:28 13:09 WBC RBC Hgb Hct MCV MCH MCHC RDW Plt Count MPV Neut # (Auto) Lymph # (Auto) Emery # (Auto) Eos # (Auto) Baso # (Auto) Absolute Nucleated RBC Nucleated RBC % Sodium Potassium Chloride Carbon Dioxide Anion Gap BUN Creatinine Estimated GFR (MDRD) Glucose Lactic Acid 1.5 Calcium Total Bilirubin AST ALT Alkaline Phosphatase Total Protein Albumin Globulin Albumin/Globulin Ratio Lipase Urine Color Urine Clarity Urine pH Ur Specific Sinclair Urine Protein Urine Glucose (UA) Urine Ketones Urine Occult Blood Urine Nitrite Urine Bilirubin Urine Urobilinogen Ur Leukocyte Esterase Urine RBC Urine WBC Ur Squamous Epith Cells Amorphous Sediment Urine Bacteria Urine Mucus Ur Microscopic Review Urine Culture Comments Nasal Adenovirus (PCR) NOT DETECTED Nasal B. parapertussis DNA (PCR) NOT DETECTED Nasal Coronavir 229E PCR NOT DETECTED Nasal Coronavir HKU1 PCR NOT DETECTED Nasal Coronavir NL63 PCR NOT DETECTED Nasal Coronavir OC43 PCR NOT DETECTED Nasal Enterovir/Rhinovir PCR NOT DETECTED Nasal Influenza B PCR NOT DETECTED Nasal Influenza A PCR NOT DETECTED Nasal Parainfluen 1 PCR NOT DETECTED Nasal Parainfluen 2 PCR NOT DETECTED Nasal Parainfluen 3 PCR NOT DETECTED Nasal Parainfluen 4 PCR NOT DETECTED Nasal RSV (PCR) NOT DETECTED Nasal B.pertussis DNA PCR NOT DETECTED Nasal C.pneumoniae (PCR) NOT DETECTED Matt Human Metapneumo PCR NOT DETECTED Nasal M.pneumoniae (PCR) NOT DETECTED Nasal SARS-CoV-2 (PCR) NOT DETECTED PD MEDICAL DECISION MAKING - ED course Complexity details: reviewed results, re-evaluated patient, considered differential, d/w patient ED course: The patient was worked up with labs, urinalysis, and chest x-ray, and given IV fluids and Zofran in the emergency department. The patient spiked a fever after arriving here, which was 39.4. She was given IV Toradol and a dose of Tylenol, which did improve things. Lactic acid level was normal. Blood cultures were sent, as well as respiratory PCR. Her white blood cell count was found to be elevated at 19,000, and her urinalysis was positive for infection. The patient was given a dose of Rocephin in the emergency department, and she is allergic to fluoroquinolones. The patient's abdominal exam is fairly benign, and at this point in time, I did not find indication for emergent CT of the abdomen and pelvis. She did seem to be somewhat delirious despite her fever coming down, and I felt she should be admitted to the hospitalist for observation, as I felt she was not going to be able to go back to her apartment and take care of herself independently at the facility until improved. Case was discussed with Dr. Stephen, who accepted the pt for admission. Departure - Departure Disposition: [facility] DC/Xfer Clinical Impression: Delirium UTI (urinary tract infection) Qualifiers: Urinary tract infection type: acute cystitis Hematuria presence: with hematuria Qualified Code(s): N30.01 - Acute cystitis with hematuria Condition: Serious Discharge Date/Time: 12/17/20 14:05
[2020-12-17 09:40] LABS: ALBUMIN 3.6 g/dL (3.2-5.5); ALBUMIN/GLOBULIN RATIO 1.6 (1.0-2.2); BILIRUBIN,TOTAL 0.7 mg/dL (0.2-1.0); CALCIUM 8.8 mg/dL (8.5-10.3); CREATININE 1.3 mg/dL (0.4-1.0); POTASSIUM 4.4 mmol/L (3.5-5.0); TOTAL PROTEIN 5.9 g/dL (6.7-8.2)
--- NOTE | 2020-12-17 10:08 | XRAY Report ---
PROCEDURE: Chest 1 View X-Ray INDICATIONS: chest pain TECHNIQUE: One view of the chest was acquired. COMPARISON: Chest radiographs 08/30/2020 and 08/25/2020 FINDINGS: Surgical changes and devices: None. Lungs and pleura: No pleural effusions or pneumothorax. Lungs are clear. Mediastinum: Mediastinal contours appear normal. Heart size is stable. Bones and chest wall: No suspicious bony lesions. Overlying soft tissues appear unremarkable. IMPRESSION: No acute cardiopulmonary abnormality. Reviewed by: Thierno Morales MD on 12/17/2020 10:06 AM PDT Approved by: Thierno Morales MD on 12/17/2020 10:06 AM PDT Station ID: [id number]
[2020-12-17] MEDS ORDERED: ACETAMINOPHEN 325 MG TABLET PO STA (12:19)
[2020-12-17] MEDS ORDERED: KETOROLAC 30 MG/ML VIAL IVP STA (12:19)
[2020-12-17 12:23] LABS: BILIRUBIN,URINE NEGATIVE (NEGATIVE); GLUCOSE, URINE (UA) NEGATIVE (NEGATIVE); KETONES,URINE (UA) NEGATIVE (NEGATIVE); LEUKOCYTE ESTERASE, URINE SMALL (NEGATIVE); NITRITE,URINE NEGATIVE (NEGATIVE); OCCULT BLOOD,URINE MODERATE (NEGATIVE); PROTEIN,URINE 30 mg/dL (NEGATIVE); UROBILINOGEN,URINE 0.2 (NORMAL) E.U./dL (NORMAL)
[2020-12-17 12:24] LABS: CLARITY,URINE SL. CLOUDY (CLEAR)
[2020-12-17 12:30] LABS: AMORPHOUS SEDIMENT,UR Few /LPF; BACTERIA,URINE Few /HPF (None Seen); MUCUS,URINE Moderate Strands; SQUAMOUS EPITHELIAL CELL,UR FEW Squamous (<= Few)
[2020-12-17] MEDS ORDERED: cefTRIAXone 2 GM in SODIUM CHLORIDE 0.9% MINIBAG 100 ML IV STA (12:44)
[2020-12-17] MEDS ORDERED: SODIUM CHLORIDE FLUSH 0.9% 10 ML SYRINGE IVP PRN (13:19)
--- NOTE | 2020-12-17 13:32 | HISTORY & PHYSICAL EXAMINATION ---
Chief Complaint - Chief Complaint Chief Complaint: fever, altered mental status, n/v/d History of Present Illness - Admitted From Admitted From:: [facility] ED - History Obtained From Records Reviewed: yes - History of Present Illness HPI Comment/Other: Patient is a 79-year-old female who presented to the ED with complaint of upset stomach, abdominal pain and diarrhea which started last night. She had also been experiencing dyspnea. She has also been experiencing increased urinary frequency.She denied any chest pain. She is very hard of hearing which limits the history taking and currently is somewhat lethargic. In the ED she was found to have a temperature of 39.1 Celsius and a white blood cell count of 19. Further work-up included a UA which was indicative of a UTI. On auscultation the patient has significantly diminished air movements bilaterally. While at rest her oxygen saturation were intermittently drop into the 80s. 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: Other : reports: Incontinence, Frequency HEENT: reports: Chronic vision loss, Chronic hearing loss Psych: reports: Depression, Anxiety, Bipolar disorder, Schizophrenia Musculoskeletal: reports: Chronic back pain Derm: reports: Herpes zoster, Other MRSA Hx?: No Other Past Medical History: developmentally delayed - Past Surgical History General: reports: Cholecystectomy Cardiovascular: reports: Angioplasty - Family & Social History Family History Comment/Other: Cannot obtain due to dementia and currently altered mental status due to reason for presentation Living arrangement: Assisted living (Formerly [facility]) - Substance History Use: Uses substance without health or social issues: NONE Abuse: Recurrent use of substance despite neg consequences: NONE Dependence: Experiences withdrawal or developed tolerances: NONE - POLST Patient has POLST: Yes Meds/Allgy - Home Medications Home Medications: Ambulatory Orders Medication Instructions Recorded Confirmed Clopidogrel [Plavix] 75 mg PO DAILY 12/12/12 12/17/20 Escitalopram [Lexapro] 10 mg PO DAILY 12/12/12 12/17/20 Furosemide 20 mg PO DAILY 12/12/12 12/17/20 Lovastatin 40 mg PO DAILY 12/12/12 12/17/20 Losartan [Cozaar] 100 mg PO QPM 08/17/16 12/17/20 guaiFENesin [Guaifenesin] 200 mg PO Q6H PRN 08/17/16 12/17/20 Acetaminophen 650 mg PO Q6H PRN 08/02/17 12/17/20 Albuterol Sulf [Ventolin Hfa 2 puffs INH Q3H PRN 08/02/17 12/17/20 Inhaler] Budesonide [Pulmicort Flexhaler] 2 puffs INH BID 08/02/17 12/17/20 Polyvinyl Alcohol [Artificial 1 drops EACHEYE BID 08/02/17 12/17/20 Tears] [id number] [Beanaid] 150 unit PO DAILY 06/25/20 12/17/20 Famotidine [Pepcid] 20 mg DAILY 06/25/20 12/17/20 Ferrous Sulfate 325 mg PO DAILY 06/25/20 12/17/20 Fluticasone [Flonase] 1 sprays MATT BID 06/25/20 12/17/20 Loperamide HCl [Imodium A-D] 2 mg PO DAILY PRN 06/25/20 12/17/20 Loratadine [Allergy Relief] 10 mg PO DAILY 06/25/20 12/17/20 Meloxicam [Mobic] 7.5 mg PO BID PRN #10 tablet 06/25/20 12/17/20 predniSONE [Deltasone] 2.5 mg PO DAILY 06/25/20 12/17/20 Olopatadine HCl [Pataday Once 2.5 ml OP DAILY 12/17/20 12/17/20 Daily Relief] Sulfamethox/Trimeth 800/160 1 tab BID 12/17/20 12/17/20 [Bactrim Ds] - Allergies Allergies/Adverse Reactions: Allergies Allergy/AdvReac Type Severity Reaction Status Date / Time levofloxacin [From Levaquin] Allergy Severe Unknown Verified 12/17/20 09:27 perfume Allergy Unknown Verified 12/17/20 09:27 metals gold silver Allergy Unknown Uncoded 12/17/20 09:27 Review of Systems - Constitutional Constitutional: reports: Fever, Weakness - Eyes Eyes: denies: Pain - Ears, Nose & Throat Ears, Nose & Throat: reports: Hearing loss, Hearing aids - Cardiovascular Cariovascular: denies: Chest pain, Edema, Lightheadedness, Syncope - Respiratory Respiratory: reports: SOB at rest. denies: Cough, Wheezing - Gastrointestinal Gastrointestinal: reports: Abdominal pain, Diarrhea, Nausea, Vomiting. denies: Abdominal distention, Constipation - Genitourinary Genitourinary: reports: Frequency. denies: Dysuria, Hematuria - Musculoskeletal Musculoskeletal: denies: Muscle pain, Back pain - Integumentary Integumentary: denies: Rash, Pruritis - Neurological Neurological: denies: General weakness, Headache - Psychiatric Psychiatric: denies: Depression, Anxiety - Endocrine Endocrine: denies: Polyuria, Polydypsia - Hematologic/Lymphatic Hematologic/Lymphatic: denies: Anemia, Bruising Prior Level of Functionality: Patient is normally independent of activities of daily living. Exam - Vital Signs Vital Signs: Vital Signs x48h Temp Pulse Resp BP Pulse Ox 12/17/20 13:00 94 20 143/52 H 12/17/20 12:30 100 24 130/56 L 94 12/17/20 12:20 39.3 C H 106 H 24 157/40 H 93 12/17/20 12:00 39.3 C H 102 H 20 157/40 H 85 L 12/17/20 11:28 100 23 164/58 H 94 12/17/20 10:58 36.2 C L 95 26 H 166/63 H 100 12/17/20 09:01 37.4 C 104 H 22 153/90 H 99 - Physical Exam General Appearance: positive: Alert, Moderate distress Eyes Bilateral: positive: PERRL, EOMI ENT: positive: Dry mucous membranes Neck: positive: No JVD, Trachea midline Respiratory: positive: Chest non-tender, No respiratory distress. negative: Rales, Rhonchi Cardiovascular: positive: No murmur, Tachycardia Abdomen: positive: Non-tender, No organomegaly, Nml bowel sounds, No distention. negative: Guarding, Rebound Back: positive: Nml inspection Skin: positive: Color nml, No rash, Warm, Dry. negative: Diaphoresis Extremities: positive: Non-tender, Full ROM, Nml appearance, No pedal edema Neurologic/Psychiatric: positive: Oriented x3, Mood/affect nml Conclusion/Plan - Problem List (1) UTI (urinary tract infection) Conclusion/Plan: Urine cultures pending. Patient was started on Rocephin 1 g IV daily. Will continue. Tylenol 650 mg every 4 hours as needed for fever and pain. Gentle IV hydration with normal saline. Qualifiers: Urinary tract infection type: acute cystitis Hematuria presence: with hematuria Qualified Code(s): N30.01 - Acute cystitis with hematuria (2) Acute exacerbation of COPD with asthma Conclusion/Plan: Supplemental oxygen via nasal cannula. DuoNeb every 4 hours as needed. Albuterol every 4 hours as needed. Budesonide twice daily. Hold off on systemic steroids due to infection and fever. (3) Depression Conclusion/Plan: On escitalopram 10mg po daily (4) GERD (gastroesophageal reflux disease) Conclusion/Plan: Famotidine 40mg po daily (5) ARF (acute renal failure) Conclusion/Plan: Continue IV hydration with normal saline at 100 mils per hour. Creatinine today was 1.3. We will recheck with a.m. labs. We will hold losartan and furosemide while hydrating patient. We will also hold meloxicam due to acute kidney injury. - Lab Results Fish Bones: 12/17/20 09:22 12/17/20 09:22 Core Measures - Anticipated LOS I expect patient to be DC'd or transferred within 96 hours.: Yes - DVT/VTE - Prophylaxis VTE/DVT Device ordered at admit?: Yes VTE/DVT Prophylaxis med ordered at admit?: Yes
[2020-12-17 14:14] LABS: B. PARAPERTUSSIS- RESP PCR PAN NOT DETECTED; B. PERTUSSIS- RESP PCR PANEL NOT DETECTED; C. PNEUMONIAE- RESP PCR PANEL NOT DETECTED; CORONAVIRUS 229E-RESP PCR NOT DETECTED; CORONAVIRUS HKU1-RESP PCR NOT DETECTED; CORONAVIRUS NL63-RESP PCR NOT DETECTED; CORONAVIRUS OC43-RESP PCR NOT DETECTED; HUMAN METAPNEUMOVIRUS NOT DETECTED; INFLUENZA A- RESP PCR PANEL NOT DETECTED; INFLUENZA B - RESP PCR PANEL NOT DETECTED; M. PNEUMONIAE- RESP PCR PANEL NOT DETECTED; PARAINFLUENZA VIRUS 1 NOT DETECTED; PARAINFLUENZA VIRUS 2 NOT DETECTED; PARAINFLUENZA VIRUS 3 NOT DETECTED; PARAINFLUENZA VIRUS 4 NOT DETECTED; RHINOVIRUS/ENTEROVIRUS NOT DETECTED; RSV- RESP PCR PANEL NOT DETECTED; SARS-CoV-2 -RESP PCR PANEL NOT DETECTED
[2020-12-17] MEDS: SODIUM CHLORIDE 0.9% 1,000 ML IV SCH (15:04)
[2020-12-17] MEDS: IPRATROPIUM/ALBUTEROL 3 ML NEB INH PRN (15:20)
[2020-12-17] MEDS ORDERED: ALBUTEROL NEB 2.5 MG/3 ML INH PRN (16:08)
[2020-12-17] MEDS: ONDANSETRON 4 MG/2 ML VIAL IVP PRN (16:09)
[2020-12-17] MEDS: ACETAMINOPHEN 325 MG TABLET PO PRN ×2 (16:23→21:44)
[2020-12-17] MEDS: SODIUM CHLORIDE FLUSH 0.9% 10 ML SYRINGE IVP SCH (16:26)
[2020-12-17] MEDS: BUDESONIDE 0.5 MG/2 ML NEB INH SCH (20:14)
[2020-12-17] MEDS ORDERED: SODIUM CHLORIDE 0.9% 500 ML IV ONE (20:19)
[2020-12-17] MEDS: ATORVASTATIN 10 MG TABLET PO SCH (21:45)
[2020-12-18] MEDS: SODIUM CHLORIDE FLUSH 0.9% 10 ML SYRINGE IVP SCH ×3 (00:39→17:39)
[2020-12-18] MEDS: SODIUM CHLORIDE 0.9% 1,000 ML IV SCH ×3 (01:00→20:40)
[2020-12-18 05:30] LABS: BASOPHILS % (AUTO) 0.2 %; EOSINOPHILS # (AUTO) 0.3 10^3/uL (0.0-0.7); EOSINOPHILS % (AUTO) 2.1 %; HCT - HEMATOCRIT 37.5 % (37.0-47.0); HGB - HEMOGLOBIN 11.2 g/dL (12.0-16.0); LYMPHOCYTES # (AUTO) 0.2 10^3/uL (1.5-3.5); LYMPHOCYTES % (AUTO) 1.5 %; MEAN CORPUSCULAR HEMOGLOBIN 30.1 pg (27.0-31.0); MEAN CORPUSCULAR HGB CONC 29.9 g/dL (32.0-36.0); MEAN CORPUSCULAR VOLUME 100.8 fL (81.0-99.0); MEAN PLATELET VOLUME 10.3 fL (7.9-10.8); MONOCYTES # (AUTO) 0.5 10^3/uL (0.0-1.0); MONOCYTES % (AUTO) 3.7 %; NEUTROPHILS # (AUTO) 13.4 10^3/uL (1.5-6.6); PLT - PLATELET COUNT 171 10^3/uL (130-450); RED BLOOD COUNT 3.72 10^6/uL (4.20-5.40); RED CELL DISTRIBUTION WIDTH 13.7 % (12.0-15.0); WHITE BLOOD COUNT 14.6 x10^3/uL (4.8-10.8)
[2020-12-18 05:36] LABS: CALCIUM 8.3 mg/dL (8.5-10.3); CREATININE 2.1 mg/dL (0.4-1.0); POTASSIUM 4.3 mmol/L (3.5-5.0)
[2020-12-18] MEDS: ACETAMINOPHEN 325 MG TABLET PO PRN ×2 (06:18→15:51)
[2020-12-18] MEDS: BUDESONIDE 0.5 MG/2 ML NEB INH SCH ×2 (07:27→20:00)
[2020-12-18] MEDS: IPRATROPIUM/ALBUTEROL 3 ML NEB INH PRN (07:27)
--- NOTE | 2020-12-18 07:32 | PROVIDER PROGRESS NOTE ---
Assessment/Plan - Problem List (1) UTI (urinary tract infection) Qualifiers: Urinary tract infection type: acute cystitis Hematuria presence: with hematuria Qualified Code(s): N30.01 - Acute cystitis with hematuria Assessment/Plan: White blood cell count improved from 19 down to 14.6. Patient is afebrile. Urine cultures pending. On Rocephin 1 g IV daily. Tylenol 650 mg every 4 hours as needed for fever and pain. Gentle IV hydration with normal saline. (2) Acute exacerbation of COPD with asthma Assessment/Plan: Supplemental oxygen via nasal cannula. DuoNeb every 4 hours as needed. Albuterol every 4 hours as needed. Budesonide twice daily. (3) Depression Assessment/Plan: On escitalopram 10mg po daily (4) GERD (gastroesophageal reflux disease) Assessment/Plan: Famotidine 40mg po daily (5) ARF (acute renal failure) Assessment/Plan: Creatinine increased from 1.3 up to 2.1 today with associated GFR of 23. Renal ultrasound was negative for hydronephrosis, pyelonephritis or renal calculi. We will continue to treat UTI. Anticipate improvement in renal function with treatment. (6) Elevated troponin Assessment/Plan: Likely due to demand ischemia related to dyspnea. Patient had a wide pulse pressure. Troponin was 280 then 228 then 260. Patient did not have chest pain. EKG was unremarkable. 2D echocardiogram pending. - Current Meds Current Meds: Current Medications Generic Name Dose Route Start Last Admin Trade Name Freq PRN Reason Stop Dose Admin Acetaminophen 650 mg 12/17/20 13:19 12/18/20 06:18 Acetaminophen 325 Mg Tablet PO 650 mg Q4HR PRN Administration Pain 1 to 4 Albuterol/Ipratropium 3 ml 12/17/20 13:33 12/18/20 07:27 Ipratropium/Albuterol 3 Ml Neb INH 3 ml Q4HR PRN Administration Wheezing Atorvastatin Calcium 20 mg 12/17/20 21:00 12/17/20 21:45 Atorvastatin 10 Mg Tablet PO 20 mg QPM BLAS Administration Budesonide 0.5 mg 12/17/20 19:00 12/18/20 07:27 Budesonide 0.5 Mg/2 Ml Neb INH 0.5 mg RTBID BLAS Administration Sodium Chloride 1,000 mls @ 100 mls/hr 12/17/20 14:00 12/18/20 01:00 Normal Saline 0.9% IV 100 mls/hr .Q10H BLAS Administration Ondansetron HCl 4 mg 12/17/20 13:19 12/17/20 16:09 Ondansetron 4 Mg/2 Ml Vial IVP 4 mg Q6HR PRN Administration Nausea / Vomiting Sodium Chloride 10 ml 12/17/20 17:00 12/18/20 00:39 Sodium Chloride Flush 0.9% 10 Ml Syringe IVP Not Given 0100,0900,1700 BLAS - Lab Result Fish Bone Diagrams: 12/18/20 05:20 12/18/20 05:20 - Additional Planning My Orders: My Active Orders 12/17/20 13:19 Activity Orders [RC] Q2HR IO [RC] IOSHIFT Initiate Bowel Care Protocol [RC] .protocol Initiate Line Care Protocol [RC] QSHIFT Initiate Personal Care Protoco [RC] .protocol Telemetry (24 Hour) [RC] Q4HR Vital Signs [RC] Q4HR Acetaminophen [Tylenol] 650 mg PO Q4HR PRN Ondansetron Inj [Zofran Inj] 4 mg IVP Q6HR PRN Sodium Chloride Flush 0.9% [Normal Saline Flush 0.9%] 10 ml IVP PRN PRN Condition of Patient [OTHERS] Routine DVT Prophylaxis [OTHERS] Routine 12/17/20 13:23 SCDs [RC] QSHIFT 12/17/20 13:31 Blood Culture [CULTURE, BLOOD #1] [] Stat 12/17/20 13:33 Ipratropium/Albuterol [Duoneb] 3 ml INH Q4HR PRN 12/17/20 14:00 Sodium Chloride 0.9% [Normal Saline 0.9%] 1,000 ml IV 100 mls/hr 12/17/20 15:28 Nebulizer/MDI Tx. [RC] .bid 12/17/20 15:29 Oxygen Therapy [RC] .PRN 12/17/20 15:39 Carboxymethylcellulose 1% Opht [Refresh 1% Ophth Drops] 1 drops EACHEYE BID PRN Code Status [OTHERS] Routine 12/17/20 16:08 Albuterol 2.5 mg INH Q3H PRN 12/17/20 Dinner Soft Mechanical Diet [DIET] 12/17/20 17:00 Sodium Chloride Flush 0.9% [Normal Saline Flush 0.9%] 10 ml IVP 0100,0900,1700 12/17/20 19:00 Budesonide [Pulmicort] 0.5 mg INH RTBID 12/17/20 21:00 Atorvastatin [Lipitor] 20 mg PO QPM 12/18/20 08:00 Ferrous Sulfate [Feosol] 325 mg PO DAILYWM 12/18/20 09:00 Clopidogrel [Plavix] 75 mg PO DAILY Escitalopram [Lexapro] 10 mg PO DAILY Famotidine [Pepcid] 20 mg PO DAILY Patient Own Med [Patient Own Medication] 1 each EACHEYE DAILY cefTRIAXone [Rocephin] 1 gm Sodium Chloride 0.9% Minibag [Normal Saline 0.9% Minibag] 100 ml IV DAILY polyethylene glycoL 3350 [Miralax] 17 gm PO DAILY 12/19/20 05:00 BMP - BASIC METABOLIC PANEL [CHEM] DAILYLAB CBC - COMP BLD CT W/AUTO DIFF [HEME] DAILYLAB 12/20/20 05:00 BMP - BASIC METABOLIC PANEL [CHEM] DAILYLAB CBC - COMP BLD CT W/AUTO DIFF [HEME] DAILYLAB 12/21/20 05:00 BMP - BASIC METABOLIC PANEL [CHEM] DAILYLAB CBC - COMP BLD CT W/AUTO DIFF [HEME] DAILYLAB 12/22/20 05:00 BMP - BASIC METABOLIC PANEL [CHEM] DAILYLAB CBC - COMP BLD CT W/AUTO DIFF [HEME] DAILYLAB Subjective - Subjective Patient Reports: Other (She was resting comfortably in bedside chair at time of visit. She had just finished breakfast. She denies chest pain or dyspnea. She has significantly improved air movement on auscultation bilaterally. No fever or chills. Last night she was dyspneic and had a wide pulse pressure.) Objective Vital Signs: Vital Signs - 24 hr 12/17/20 12/17/20 12/17/20 09:01 10:58 11:28 Temperature 37.4 C 36.2 C L Heart Rate 104 H 95 100 Heart Rate [ Brachial] Respiratory 22 26 H 23 Rate Blood Pressure 153/90 H 166/63 H 164/58 H Blood Pressure [Right Brachial artery] O2 Saturation 99 100 94 12/17/20 12/17/20 12/17/20 12:00 12:20 12:30 Temperature 39.3 C H 39.3 C H Heart Rate 102 H 106 H 100 Heart Rate [ Brachial] Respiratory 20 24 24 Rate Blood Pressure 157/40 H 157/40 H 130/56 L Blood Pressure [Right Brachial artery] O2 Saturation 85 L 93 94 12/17/20 12/17/20 12/17/20 13:00 13:30 14:10 Temperature 38.2 C H Heart Rate 94 94 Heart Rate [ 93 Brachial] Respiratory 20 22 18 Rate Blood Pressure 143/52 H 125/50 L Blood Pressure 109/46 L [Right Brachial artery] O2 Saturation 94 95 12/17/20 12/17/20 12/17/20 15:20 15:43 20:07 Temperature 37.5 C 37.0 C Heart Rate 78 Heart Rate [ 82 77 Brachial] Respiratory 20 24 20 Rate Blood Pressure Blood Pressure 122/40 L 116/31 L [Right Brachial artery] O2 Saturation 99 97 12/17/20 12/17/20 12/18/20 20:15 21:30 01:00 Temperature 37 C Heart Rate 87 Heart Rate [ 85 92 Brachial] Respiratory 16 20 Rate Blood Pressure Blood Pressure 135/43 H 137/49 H [Right Brachial artery] O2 Saturation 95 12/18/20 12/18/20 12/18/20 04:38 04:46 05:06 Temperature 37.6 C 37.6 C Heart Rate 116 H Heart Rate [ 116 H Brachial] Respiratory 20 86 H Rate Blood Pressure Blood Pressure 185/60 H [Right Brachial artery] O2 Saturation 86 L 95 95 12/18/20 07:28 Temperature Heart Rate 123 H Heart Rate [ Brachial] Respiratory 24 Rate Blood Pressure Blood Pressure [Right Brachial artery] O2 Saturation Oxygen O2 Source Nasal cannula Oxygen Flow Rate 2 I&O (Last 24 Hrs): Intake and Output Totals x24h 12/16/20 12/17/20 12/18/20 23:59 23:59 23:59 Intake Total 1790 1000 Output Total 550 Balance 1240 1000 General: Alert, No acute distress, Other (Oriented X2) HEENT: Atraumatic, PERRLA, EOMI Neck: Supple, No JVD Neuro: Alert, Non Focal Cardiovascular: Regular rate Respiratory: Chest non-tender, No respiratory distress, Other (Mild crackles bilaterally) Abdomen: Normal bowel sounds, Soft, No tenderness Extremities: No clubbing, No cyanosis, No edema Skin: No rashes - Results Results: Laboratory Results WBC 14.6 x10^3/uL (4.8-10.8) H 12/18/20 05:20 RBC 3.72 10^6/uL (4.20-5.40) L 12/18/20 05:20 Hgb 11.2 g/dL (12.0-16.0) L 12/18/20 05:20 Hct 37.5 % (37.0-47.0) 12/18/20 05:20 MCV 100.8 fL (81.0-99.0) H 12/18/20 05:20 MCH 30.1 pg (27.0-31.0) 12/18/20 05:20 MCHC 29.9 g/dL (32.0-36.0) L 12/18/20 05:20 RDW 13.7 % (12.0-15.0) 12/18/20 05:20 Plt Count 171 10^3/uL (130-450) 12/18/20 05:20 MPV 10.3 fL (7.9-10.8) 12/18/20 05:20 Neut # (Auto) 13.4 10^3/uL (1.5-6.6) H 12/18/20 05:20 Lymph # (Auto) 0.2 10^3/uL (1.5-3.5) L 12/18/20 05:20 [place] # (Auto) 0.5 10^3/uL (0.0-1.0) 12/18/20 05:20 Eos # (Auto) 0.3 10^3/uL (0.0-0.7) 12/18/20 05:20 Baso # (Auto) 0.0 10^3/uL (0.0-0.1) 12/18/20 05:20 Absolute Nucleated RBC 0.00 x10^3/uL 12/18/20 05:20 Nucleated RBC % 0.0 /100WBC 12/18/20 05:20 Sodium 142 mmol/L (135-145) 12/18/20 05:20 Potassium 4.3 mmol/L (3.5-5.0) 12/18/20 05:20 Chloride 110 mmol/L (101-111) 12/18/20 05:20 Carbon Dioxide 26 mmol/L (21-32) 12/18/20 05:20 Anion Gap 6.0 (6-13) 12/18/20 05:20 BUN 45 mg/dL (6-20) H 12/18/20 05:20 Creatinine 2.1 mg/dL (0.4-1.0) H 12/18/20 05:20 Estimated GFR (MDRD) 23 (>89) L 12/18/20 05:20 Glucose 101 mg/dL (70-100) H 12/18/20 05:20 Lactic Acid 1.1 mmol/L (0.5-2.2) 12/18/20 05:20 Calcium 8.3 mg/dL (8.5-10.3) L 12/18/20 05:20 Total Bilirubin 0.7 mg/dL (0.2-1.0) 12/17/20 09:22 AST 21 IU/L (10-42) 12/17/20 09:22 ALT 20 IU/L (10-60) 12/17/20 09:22 Alkaline Phosphatase 42 IU/L (42-121) 12/17/20 09:22 Troponin I High Sens 260.1 ng/L (2.3-14.8) H* 12/18/20 05:20 Total Protein 5.9 g/dL (6.7-8.2) L 12/17/20 09:22 Albumin 3.6 g/dL (3.2-5.5) 12/17/20 09:22 Globulin 2.3 g/dL (2.1-4.2) 12/17/20 09:22 Albumin/Globulin Ratio 1.6 (1.0-2.2) 12/17/20 09:22 Lipase 101 U/L (22-51) H 12/17/20 09:22 Urine Color YELLOW 12/17/20 12:15 Urine Clarity SL. CLOUDY (CLEAR) 12/17/20 12:15 Urine pH 6.0 PH (5.0-7.5) 12/17/20 12:15 Ur Specific [place] 1.020 (1.002-1.030) 12/17/20 12:15 Urine Protein 30 mg/dL (NEGATIVE) H 12/17/20 12:15 Urine Glucose (UA) NEGATIVE mg/dL (NEGATIVE) 12/17/20 12:15 Urine Ketones NEGATIVE mg/dL (NEGATIVE) 12/17/20 12:15 Urine Occult Blood MODERATE (NEGATIVE) H 12/17/20 12:15 Urine Nitrite NEGATIVE (NEGATIVE) 12/17/20 12:15 Urine Bilirubin NEGATIVE (NEGATIVE) 12/17/20 12:15 Urine Urobilinogen 0.2 (NORMAL) E.U./dL (NORMAL) 12/17/20 12:15 Ur Leukocyte Esterase SMALL (NEGATIVE) H 12/17/20 12:15 Urine RBC 11-25 /HPF (0-5) H 12/17/20 12:15 Urine WBC 11-25 /HPF (0-5) H 12/17/20 12:15 Ur Squamous Epith Cells FEW Squamous (<= Few) 12/17/20 12:15 Amorphous Sediment Few /LPF 12/17/20 12:15 Urine Bacteria Few /HPF (None Seen) 12/17/20 12:15 Urine Mucus Moderate Strands 12/17/20 12:15 Ur Microscopic Review INDICATED 12/17/20 12:15 Urine Culture Comments INDICATED 12/17/20 12:15 Nasal Adenovirus (PCR) NOT DETECTED 12/17/20 13:09 Nasal B. parapertussis DNA (PCR) NOT DETECTED 12/17/20 13:09 Nasal Coronavir 229E PCR NOT DETECTED 12/17/20 13:09 Nasal Coronavir HKU1 PCR NOT DETECTED 12/17/20 13:09 Nasal Coronavir NL63 PCR NOT DETECTED 12/17/20 13:09 Nasal Coronavir OC43 PCR NOT DETECTED 12/17/20 13:09 Nasal Enterovir/Rhinovir PCR NOT DETECTED 12/17/20 13:09 Nasal Influenza B PCR NOT DETECTED 12/17/20 13:09 Nasal Influenza A PCR NOT DETECTED 12/17/20 13:09 Nasal Parainfluen 1 PCR NOT DETECTED 12/17/20 13:09 Nasal Parainfluen 2 PCR NOT DETECTED 12/17/20 13:09 Nasal Parainfluen 3 PCR NOT DETECTED 12/17/20 13:09 Nasal Parainfluen 4 PCR NOT DETECTED 12/17/20 13:09 Nasal RSV (PCR) NOT DETECTED 12/17/20 13:09 Nasal B.pertussis DNA PCR NOT DETECTED 12/17/20 13:09 Nasal C.pneumoniae (PCR) NOT DETECTED 12/17/20 13:09 Ramo Human Metapneumo PCR NOT DETECTED 12/17/20 13:09 Nasal M.pneumoniae (PCR) NOT DETECTED 12/17/20 13:09 Nasal SARS-CoV-2 (PCR) NOT DETECTED 12/17/20 13:09 - Procedures Procedures: Procedures ELECTROCARDIOGRAM (12/12/12) ABX Reporting Has patient been on IV antibiotics over the past 48 hours?: Yes
[2020-12-18] MEDS: FERROUS SULFATE 325 MG TABLET PO SCH (07:46)
[2020-12-18] MEDS: CLOPIDOGREL 75 MG TABLET PO SCH (08:43)
[2020-12-18] MEDS: FAMOTIDINE 20 MG TABLET PO SCH (08:43)
[2020-12-18] MEDS: ESCITALOPRAM 10 MG TABLET PO SCH (08:43)
[2020-12-18] MEDS: cefTRIAXone 1 GM in SODIUM CHLORIDE 0.9% MINIBAG 100 ML IV SCH (08:44)
[2020-12-18] MEDS: polyethylene glycoL 3350 17 GM PACKET PO SCH (08:44)
--- NOTE | 2020-12-18 09:37 | Ultrasound Report ---
PROCEDURE: Retroperitoneal INDICATIONS: Eval for obstruction, has UTI TECHNIQUE: Real-time scanning was performed of the retroperitoneal organs, with image documentation. COMPARISON: CT abdomen pelvis 09/25/2014. FINDINGS: Kidneys: Kidneys are normal in size. Right kidney measures 9.2 cm long; left kidney measures 9.0 cm long. Right renal cortical thickness is 1.3 cm; left renal cortical thickness is 1.4 cm. No solid masses, hydronephrosis, or nephrolithiasis. There is a small amount of echogenic structure at the [facility] renal collecting system margin, without shadowing, more likely to represent vascular or medullary calcification than a urinary tract collecting system calculus. There is a right renal cyst measuring only 1.3 cm in diameter a left renal cortical cyst is present measuring up to 2.3 cm at the superior /middle third junction. Pancreas: Visualized portions of the pancreas are sonographically normal. Aorta: Visualized aorta is normal in caliber at 3 cm or less. Iliac arteries: Proximal common iliac arteries are normal in caliber at 2.5 cm or less. IVC: Intrahepatic inferior vena cava is patent. Miscellaneous: The bladder is nondistended measuring 91.2 cc, but the patient is incontinent and ther efore postvoiding evaluation was not performed.. IMPRESSION: No hydronephrosis or nephrolithiasis found. Bilateral small simple renal cortical cysts as noted. The bladder is not distended at time of imaging, and the patient is incontinent. Bladder evaluation ther efore is limited. Reviewed by: Ronnie Dinero MD on 12/18/2020 8:36 AM TASHI Approved by: Ronnie Dinero MD on 12/18/2020 8:36 AM TASHI Station ID: [id number]
[2020-12-18] MEDS: OLOPATADINE EACHEYE SCH (10:27)
[2020-12-18] MEDS ORDERED: MIN OIL/DIMETHICON/COCONUT OIL 92 GM TUBE TOP PRN (12:19)
[2020-12-18] MEDS: ATORVASTATIN 10 MG TABLET PO SCH (20:41)
[2020-12-18] MEDS: ZINC OXIDE 20% OINT 30 GM TUBE TOP PRN (21:56)
[2020-12-19] MEDS: SODIUM CHLORIDE FLUSH 0.9% 10 ML SYRINGE IVP SCH ×4 (01:11→23:41)
[2020-12-19] MEDS: IPRATROPIUM/ALBUTEROL 3 ML NEB INH PRN ×3 (04:28→19:30)
[2020-12-19 05:19] LABS: BASOPHILS % (AUTO) 0.2 %; EOSINOPHILS # (AUTO) 0.2 10^3/uL (0.0-0.7); EOSINOPHILS % (AUTO) 1.4 %; HCT - HEMATOCRIT 34.2 % (37.0-47.0); HGB - HEMOGLOBIN 10.6 g/dL (12.0-16.0); LYMPHOCYTES # (AUTO) 0.5 10^3/uL (1.5-3.5); LYMPHOCYTES % (AUTO) 3.9 %; MEAN CORPUSCULAR HEMOGLOBIN 30.5 pg (27.0-31.0); MEAN CORPUSCULAR VOLUME 98.3 fL (81.0-99.0); MEAN PLATELET VOLUME 11.1 fL (7.9-10.8); MONOCYTES # (AUTO) 0.7 10^3/uL (0.0-1.0); MONOCYTES % (AUTO) 5.7 %; NEUTROPHILS # (AUTO) 10.2 10^3/uL (1.5-6.6); PLT - PLATELET COUNT 138 10^3/uL (130-450); RED BLOOD COUNT 3.48 10^6/uL (4.20-5.40); RED CELL DISTRIBUTION WIDTH 13.9 % (12.0-15.0); WHITE BLOOD COUNT 11.6 x10^3/uL (4.8-10.8)
[2020-12-19] MEDS: ACETAMINOPHEN 325 MG TABLET PO PRN (05:19)
[2020-12-19 05:25] LABS: CALCIUM 8.6 mg/dL (8.5-10.3); CREATININE 1.9 mg/dL (0.4-1.0); POTASSIUM 4.4 mmol/L (3.5-5.0)
[2020-12-19] MEDS: SODIUM CHLORIDE 0.9% 1,000 ML IV SCH (06:58)
--- NOTE | 2020-12-19 07:13 | PROVIDER PROGRESS NOTE ---
Assessment/Plan - Problem List (1) UTI (urinary tract infection) Qualifiers: Urinary tract infection type: acute cystitis Hematuria presence: with hematuria Qualified Code(s): N30.01 - Acute cystitis with hematuria Assessment/Plan: Patient's white blood cell count improved from 14.6 down to 11.6. However patient had a temperature of 38.8Degrees Celsius this morning. Repeat blood cultures ordered. Initial blood cultures and urine culture are no growth to date. Antibiotics was switched from Rocephin to cefepime. We will continue Tylenol for fever and pain. Continue gentle IV hydration. (2) Acute exacerbation of COPD with asthma Assessment/Plan: Due to patient's significant somnolence/lethargy, will check an ABG. Continue supplemental oxygen via nasal cannula Patient continues to receive DuoNeb and albuterol inhalers as needed. Continue budesonide twice daily. (3) Depression Assessment/Plan: On escitalopram 10 mg p.o. daily (4) GERD (gastroesophageal reflux disease) Assessment/Plan: Famotidine and 40 mg p.o. daily (5) ARF (acute renal failure) Assessment/Plan: Patient's creatinine today was 1.9 with an estimated GFR of 26. There is a slight improvement from the previous day when the creatinine was 2.1 with an estimated GFR of 23. We will continue gentle IV hydration and continue treating infection. Anticipating further improvement. We will continue to hold patient's losartan, Lasix, meloxicam. (6) Elevated troponin Assessment/Plan: Likely due to demand ischemia related to dyspnea. Patient had a wide pulse pressure. Troponin was 280 then 228 then 260. Patient did not have chest pain. EKG was unremarkable. 2D echocardiogram showed moderate concentric LVH with normal systolic function and ejection fraction 75%. There was moderate diastolic dysfunction in the left atrium was mildly dilated. Pulmonary hypertension, PASP 37 mmHg. There was no evidence of aortic stenosis or aortic regurgitation. The aortic valve is trileaflet. We will continue gentle IV hydration. - Current Meds Current Meds: Current Medications Generic Name Dose Route Start Last Admin Trade Name Freq PRN Reason Stop Dose Admin Acetaminophen 650 mg 12/17/20 13:19 12/19/20 05:19 Acetaminophen 325 Mg Tablet PO 650 mg Q4HR PRN Administration Pain 1 to 4 Albuterol/Ipratropium 3 ml 12/17/20 13:33 12/19/20 04:28 Ipratropium/Albuterol 3 Ml Neb INH 3 ml Q4HR PRN Administration Wheezing Atorvastatin Calcium 20 mg 12/17/20 21:00 12/18/20 20:41 Atorvastatin 10 Mg Tablet PO 20 mg QPM BLAS Administration Budesonide 0.5 mg 12/17/20 19:00 12/18/20 20:00 Budesonide 0.5 Mg/2 Ml Neb INH 0.5 mg RTBID BLAS Administration Clopidogrel Bisulfate 75 mg 12/18/20 09:00 12/18/20 08:43 Clopidogrel 75 Mg Tablet PO 75 mg DAILY BLAS Administration Escitalopram Oxalate 10 mg 12/18/20 09:00 12/18/20 08:43 Escitalopram 10 Mg Tablet PO 10 mg DAILY BLAS Administration Famotidine 20 mg 12/18/20 09:00 12/18/20 08:43 Famotidine 20 Mg Tablet PO 20 mg DAILY BLAS Administration Ferrous Sulfate 325 mg 12/18/20 08:00 12/18/20 07:46 Ferrous Sulfate 325 Mg Tablet PO 325 mg DAILYWM BLAS Administration Sodium Chloride 1,000 mls @ 100 mls/hr 12/17/20 14:00 12/19/20 06:58 Normal Saline 0.9% IV 100 mls/hr .Q10H BLAS Administration Ceftriaxone Sodium 1 gm/ 100 mls @ 200 mls/hr 12/18/20 09:00 12/18/20 09:15 Sodium Chloride IV Infused DAILY BLAS Infusion Multi-Ingredient Ointment 1 applic 12/18/20 12:19 12/18/20 21:56 Zinc Oxide 20% Oint 30 Gm Tube TOP 1 applic PRN PRN Administration Skin Care Ondansetron HCl 4 mg 12/17/20 13:19 12/17/20 16:09 Ondansetron 4 Mg/2 Ml Vial IVP 4 mg Q6HR PRN Administration Nausea / Vomiting Patient Own Med - 1 each 12/18/20 09:00 12/18/20 10:27 Olopatadine EACHEYE Not Given Ophthalmic Solution DAILY BLAS Polyethylene Glycol 17 gm 12/18/20 09:00 12/18/20 08:44 Polyethylene Glycol 3350 17 Gm Packet PO 17 gm DAILY BLAS Administration Sodium Chloride 10 ml 12/17/20 17:00 12/19/20 01:11 Sodium Chloride Flush 0.9% 10 Ml Syringe IVP Not Given 0100,0900,1700 BLAS - Lab Result Fish Bone Diagrams: 12/19/20 04:35 12/19/20 04:35 - Additional Planning My Orders: My Active Orders 12/18/20 08:00 Ferrous Sulfate [Feosol] 325 mg PO DAILYWM 12/18/20 09:00 Clopidogrel [Plavix] 75 mg PO DAILY Escitalopram [Lexapro] 10 mg PO DAILY Famotidine [Pepcid] 20 mg PO DAILY Patient Own Med [Patient Own Medication] 1 each EACHEYE DAILY cefTRIAXone [Rocephin] 1 gm Sodium Chloride 0.9% Minibag [Normal Saline 0.9% Minibag] 100 ml IV DAILY polyethylene glycoL 3350 [Miralax] 17 gm PO DAILY 12/18/20 12:19 Min Oil/Dimeth/Coconut Oil Crm [Cavilon] 1 applic TOP PRN PRN Zinc Oxide 20% Oint [Zinc Oxide] 1 applic TOP PRN PRN 12/19/20 Blood Culture [CULTURE, BLOOD #1] [RM] Routine 12/19/20 09:00 Docusate Sodium 250Mg Capsule [Colace 250Mg Capsule] 250 - 500 mg PO DAILY Senna [Senokot] 8.6 - 17.2 mg PO DAILY 12/20/20 05:00 BMP - BASIC METABOLIC PANEL [CHEM] DAILYLAB CBC - COMP BLD CT W/AUTO DIFF [HEME] DAILYLAB 12/21/20 05:00 BMP - BASIC METABOLIC PANEL [CHEM] DAILYLAB CBC - COMP BLD CT W/AUTO DIFF [HEME] DAILYLAB 12/22/20 05:00 BMP - BASIC METABOLIC PANEL [CHEM] DAILYLAB CBC - COMP BLD CT W/AUTO DIFF [HEME] DAILYLAB Subjective - Subjective Patient Reports: Other (She was very somnolent this morning. She mainly arouses with pain stimuli. Around 5 AM she had a temperature of 38 C. She also seems to have diminished movement on auscultation of her lungs. She was not able to eat breakfast or lunch due to somnolence. Later in the day she was more arousable.) Objective Vital Signs: Vital Signs - 24 hr 12/18/20 12/18/20 12/18/20 07:28 08:38 13:45 Temperature 36.5 C 36.7 C Heart Rate 123 H Heart Rate [ 83 98 Brachial] Respiratory 24 15 18 Rate Blood Pressure 139/69 H 142/78 H [Right Brachial artery] O2 Saturation 96 95 12/18/20 12/18/20 12/18/20 15:43 20:00 20:12 Temperature 36.2 C L 38.2 C H Heart Rate 88 Heart Rate [ 100 89 Brachial] Respiratory 16 18 20 Rate Blood Pressure 151/88 H 150/64 H [Right Brachial artery] O2 Saturation 91 L 95 12/18/20 12/18/20 12/19/20 21:55 23:42 04:21 Temperature 36.9 C 37.8 C 37.2 C Heart Rate Heart Rate [ 102 H 108 H Brachial] Respiratory 20 20 Rate Blood Pressure 162/80 H 185/83 H [Right Brachial artery] O2 Saturation 94 98 12/19/20 12/19/20 05:18 06:55 Temperature 38.8 C H 37.1 C Heart Rate Heart Rate [ Brachial] Respiratory Rate Blood Pressure [Right Brachial artery] O2 Saturation Oxygen O2 Source Room air Oxygen Flow Rate 2 I&O (Last 24 Hrs): Intake and Output Totals x24h 12/17/20 12/18/20 12/19/20 23:59 23:59 23:59 Intake Total 1790 3570 1000 Output Total 550 Balance 1240 3570 1000 General: Other (Somnolent/lethargic) HEENT: PERRLA, EOMI Neck: Supple, No JVD Neuro: Alert, Non Focal, Oriented Times 3 Cardiovascular: Regular rate Respiratory: Wheezes, Other (Decreased/diminished air movement bilaterally.) Abdomen: Normal bowel sounds, Soft, No tenderness Extremities: No clubbing, No cyanosis, No edema Skin: No rashes - Results Results: Laboratory Results WBC 11.6 x10^3/uL (4.8-10.8) H 12/19/20 04:35 RBC 3.48 10^6/uL (4.20-5.40) L 12/19/20 04:35 Hgb 10.6 g/dL (12.0-16.0) L 12/19/20 04:35 Hct 34.2 % (37.0-47.0) L 12/19/20 04:35 MCV 98.3 fL (81.0-99.0) 12/19/20 04:35 MCH 30.5 pg (27.0-31.0) 12/19/20 04:35 MCHC 31.0 g/dL (32.0-36.0) L 12/19/20 04:35 RDW 13.9 % (12.0-15.0) 12/19/20 04:35 Plt Count 138 10^3/uL (130-450) 12/19/20 04:35 MPV 11.1 fL (7.9-10.8) H 12/19/20 04:35 Neut # (Auto) 10.2 10^3/uL (1.5-6.6) H 12/19/20 04:35 Lymph # (Auto) 0.5 10^3/uL (1.5-3.5) L 12/19/20 04:35 [place] # (Auto) 0.7 10^3/uL (0.0-1.0) 12/19/20 04:35 Eos # (Auto) 0.2 10^3/uL (0.0-0.7) 12/19/20 04:35 Baso # (Auto) 0.0 10^3/uL (0.0-0.1) 12/19/20 04:35 Absolute Nucleated RBC 0.00 x10^3/uL 12/19/20 04:35 Nucleated RBC % 0.0 /100WBC 12/19/20 04:35 Sodium 143 mmol/L (135-145) 12/19/20 04:35 Potassium 4.4 mmol/L (3.5-5.0) 12/19/20 04:35 Chloride 113 mmol/L (101-111) H 12/19/20 04:35 Carbon Dioxide 20 mmol/L (21-32) L 12/19/20 04:35 Anion Gap 10.0 (6-13) 12/19/20 04:35 BUN 36 mg/dL (6-20) H 12/19/20 04:35 Creatinine 1.9 mg/dL (0.4-1.0) H 12/19/20 04:35 Estimated GFR (MDRD) 26 (>89) L 12/19/20 04:35 Glucose 109 mg/dL (70-100) H 12/19/20 04:35 Lactic Acid 1.1 mmol/L (0.5-2.2) 12/18/20 05:20 Calcium 8.6 mg/dL (8.5-10.3) 12/19/20 04:35 Total Bilirubin 0.7 mg/dL (0.2-1.0) 12/17/20 09:22 AST 21 IU/L (10-42) 12/17/20 09:22 ALT 20 IU/L (10-60) 12/17/20 09:22 Alkaline Phosphatase 42 IU/L (42-121) 12/17/20 09:22 Troponin I High Sens 260.1 ng/L (2.3-14.8) H* 12/18/20 05:20 Total Protein 5.9 g/dL (6.7-8.2) L 12/17/20 09:22 Albumin 3.6 g/dL (3.2-5.5) 12/17/20 09:22 Globulin 2.3 g/dL (2.1-4.2) 12/17/20 09:22 Albumin/Globulin Ratio 1.6 (1.0-2.2) 12/17/20 09:22 Lipase 101 U/L (22-51) H 12/17/20 09:22 Urine Color YELLOW 12/17/20 12:15 Urine Clarity SL. CLOUDY (CLEAR) 12/17/20 12:15 Urine pH 6.0 PH (5.0-7.5) 12/17/20 12:15 Ur Specific [place] 1.020 (1.002-1.030) 12/17/20 12:15 Urine Protein 30 mg/dL (NEGATIVE) H 12/17/20 12:15 Urine Glucose (UA) NEGATIVE mg/dL (NEGATIVE) 12/17/20 12:15 Urine Ketones NEGATIVE mg/dL (NEGATIVE) 12/17/20 12:15 Urine Occult Blood MODERATE (NEGATIVE) H 12/17/20 12:15 Urine Nitrite NEGATIVE (NEGATIVE) 12/17/20 12:15 Urine Bilirubin NEGATIVE (NEGATIVE) 12/17/20 12:15 Urine Urobilinogen 0.2 (NORMAL) E.U./dL (NORMAL) 12/17/20 12:15 Ur Leukocyte Esterase SMALL (NEGATIVE) H 12/17/20 12:15 Urine RBC 11-25 /HPF (0-5) H 12/17/20 12:15 Urine WBC 11-25 /HPF (0-5) H 12/17/20 12:15 Ur Squamous Epith Cells FEW Squamous (<= Few) 12/17/20 12:15 Amorphous Sediment Few /LPF 12/17/20 12:15 Urine Bacteria Few /HPF (None Seen) 12/17/20 12:15 Urine Mucus Moderate Strands 12/17/20 12:15 Ur Microscopic Review INDICATED 12/17/20 12:15 Urine Culture Comments INDICATED 12/17/20 12:15 Nasal Adenovirus (PCR) NOT DETECTED 12/17/20 13:09 Nasal B. parapertussis DNA (PCR) NOT DETECTED 12/17/20 13:09 Nasal Coronavir 229E PCR NOT DETECTED 12/17/20 13:09 Nasal Coronavir HKU1 PCR NOT DETECTED 12/17/20 13:09 Nasal Coronavir NL63 PCR NOT DETECTED 12/17/20 13:09 Nasal Coronavir OC43 PCR NOT DETECTED 12/17/20 13:09 Nasal Enterovir/Rhinovir PCR NOT DETECTED 12/17/20 13:09 Nasal Influenza B PCR NOT DETECTED 12/17/20 13:09 Nasal Influenza A PCR NOT DETECTED 12/17/20 13:09 Nasal Parainfluen 1 PCR NOT DETECTED 12/17/20 13:09 Nasal Parainfluen 2 PCR NOT DETECTED 12/17/20 13:09 Nasal Parainfluen 3 PCR NOT DETECTED 12/17/20 13:09 Nasal Parainfluen 4 PCR NOT DETECTED 12/17/20 13:09 Nasal RSV (PCR) NOT DETECTED 12/17/20 13:09 Nasal B.pertussis DNA PCR NOT DETECTED 12/17/20 13:09 Nasal C.pneumoniae (PCR) NOT DETECTED 12/17/20 13:09 Ramo Human Metapneumo PCR NOT DETECTED 12/17/20 13:09 Nasal M.pneumoniae (PCR) NOT DETECTED 12/17/20 13:09 Nasal SARS-CoV-2 (PCR) NOT DETECTED 12/17/20 13:09 - Procedures Procedures: Procedures ELECTROCARDIOGRAM (12/12/12) ABX Reporting Has patient been on IV antibiotics over the past 48 hours?: Yes
[2020-12-19] MEDS: FERROUS SULFATE 325 MG TABLET PO SCH (08:51)
[2020-12-19] MEDS: OLOPATADINE EACHEYE SCH (08:52)
[2020-12-19] MEDS: FAMOTIDINE 20 MG TABLET PO SCH (08:52)
[2020-12-19] MEDS: SENNA 8.6 MG TABLET PO SCH (08:52)
[2020-12-19] MEDS: polyethylene glycoL 3350 17 GM PACKET PO SCH (08:52)
[2020-12-19] MEDS: DOCUSATE SODIUM 250 MG CAPSULE PO SCH (08:52)
[2020-12-19] MEDS: CLOPIDOGREL 75 MG TABLET PO SCH (08:52)
[2020-12-19] MEDS: ESCITALOPRAM 10 MG TABLET PO SCH (08:52)
[2020-12-19] MEDS: cefTRIAXone 1 GM in SODIUM CHLORIDE 0.9% MINIBAG 100 ML IV SCH (08:55)
[2020-12-19] MEDS: BUDESONIDE 0.5 MG/2 ML NEB INH SCH ×2 (09:52→19:30)
[2020-12-19] MEDS ORDERED: FAMOTIDINE 20 MG TABLET PO SCH (11:25)
[2020-12-19] MEDS: CEFEPIME 2 GM in SODIUM CHLORIDE 0.9% MINIBAG 100 ML IV SCH ×2 (11:31→23:41)
[2020-12-19 11:46] LABS: % IRON SATURATION 5 % (20-50); IRON 8 ug/dL (28-170); TOTAL IRON BINDING CAPACITY 176 ug/dL (250-450); TRANSFERRIN 126 mg/dL (192-382)
[2020-12-19 11:53] LABS: FERRITIN 463.5 ng/mL (11.0-306.8)
[2020-12-19 11:57] LABS: FOLATE 22.36 ng/mL (5.90 - >24.8)
[2020-12-19 13:55] LABS: ABG BASE EXCESS -6.2 mmol/L (-2.0-3.0); ABG HCO3 19.2 mmol/L (22.0-26.0); ABG OXYGEN SATURATION 96 % (94-98); ABG PCO2 38 mmHg (34-45); ABG PH 7.32 (7.35-7.45); ABG PO2 78 mmHg (80-100); ABG TCO2 20.4 MMOL/L (21.0-29.0); ALLEN TEST POSITIVE
--- NOTE | 2020-12-19 15:08 | XRAY Report ---
PROCEDURE: Chest 2 View X-Ray INDICATIONS: dyspnea, tachypnea TECHNIQUE: 2 view(s) of the chest. COMPARISON: 12/17/2020. FINDINGS: Surgical changes and devices: None. Lungs and pleura: Trace bilateral pleural fluid collections. There is bilateral perihilar indistinctn ess, interstitial prominence and cephalization of pulmonary vasculature. Mediastinum: Mediastinal contours are normal. Heart is at the upper limits of normal for size. Bones and chest wall: No suspicious bony abnormalities. Soft tissues appear unremarkable. IMPRESSION: Acute CHF. Reviewed by: Yesenia Echols MD, PhD on 12/19/2020 3:07 PM PDT Approved by: Yesenia Echols MD, PhD on 12/19/2020 3:07 PM PDT Station ID: [id number]
[2020-12-19] MEDS ORDERED: FUROSEMIDE 40 MG/4 ML VIAL IVP STA (15:40)
[2020-12-19] MEDS: methylPREDNISolone SUCCINATE 40 MG/ML VIAL IVP SCH ×2 (15:54→22:17)
--- NOTE | 2020-12-19 16:46 | CT Report ---
PROCEDURE: HEAD WO INDICATIONS: Altered mental status TECHNIQUE: Noncontrast 4.5 mm thick angled axial sections acquired from the foramen magnum to the vertex. For r adiation dose reduction, the following was used: automated exposure control, adjustment of mA and/or kV according to patient size. COMPARISON: 08/25/2020 FINDINGS: Image quality: Excellent. CSF spaces: Patent basilar cisterns and ventricles. Mild passive expansion of the ventricular system as a function of global cerebral volume loss. Brain: Encephalomalacia and gliosis in the right frontal lobe is unchanged. There is a new focus of e ncephalomalacia in the right mesial temporal lobe (series 3 image 29). There is no acute intracranial hemorrhage, abnormal extra-axial fluid collection, mass effect, or midline shift. Global cerebral vo lume loss with chronic microvascular ischemic changes. Szymanski-white matter differentiation is maintaine d, without CT evidence of acute large territory infarct. Skull and face: No suspicious lytic or blastic osseous lesion in the skull base or calvarium. Sinuses: Visualized sinuses and mastoids are clear. IMPRESSION: No acute intracranial abnormality. Reviewed by: Canelo Price MD on 12/19/2020 4:45 PM PDT Approved by: Canelo Price MD on 12/19/2020 4:45 PM PDT Station ID: [id number]
[2020-12-19] MEDS: ATORVASTATIN 10 MG TABLET PO SCH (22:21)
[2020-12-20 06:17] LABS: BASOPHILS % (AUTO) 0.1 %; HCT - HEMATOCRIT 35.6 % (37.0-47.0); HGB - HEMOGLOBIN 10.9 g/dL (12.0-16.0); LYMPHOCYTES # (AUTO) 0.2 10^3/uL (1.5-3.5); LYMPHOCYTES % (AUTO) 3.2 %; MEAN CORPUSCULAR HEMOGLOBIN 29.9 pg (27.0-31.0); MEAN CORPUSCULAR HGB CONC 30.6 g/dL (32.0-36.0); MEAN CORPUSCULAR VOLUME 97.5 fL (81.0-99.0); MEAN PLATELET VOLUME 11.2 fL (7.9-10.8); MONOCYTES # (AUTO) 0.1 10^3/uL (0.0-1.0); MONOCYTES % (AUTO) 1.5 %; NEUTROPHILS # (AUTO) 6.8 10^3/uL (1.5-6.6); NEUTROPHILS % (AUTO) 94.9 %; PLT - PLATELET COUNT 147 10^3/uL (130-450); RED BLOOD COUNT 3.65 10^6/uL (4.20-5.40); RED CELL DISTRIBUTION WIDTH 13.8 % (12.0-15.0); WHITE BLOOD COUNT 7.1 x10^3/uL (4.8-10.8)
[2020-12-20] MEDS: FAMOTIDINE 20 MG TABLET PO SCH (06:27)
[2020-12-20] MEDS: methylPREDNISolone SUCCINATE 40 MG/ML VIAL IVP SCH ×3 (06:28→21:01)
[2020-12-20 06:31] LABS: CALCIUM 9.3 mg/dL (8.5-10.3); CREATININE 1.8 mg/dL (0.4-1.0); POTASSIUM 4.1 mmol/L (3.5-5.0)
[2020-12-20] MEDS: IPRATROPIUM/ALBUTEROL 3 ML NEB INH PRN ×2 (07:45→19:25)
[2020-12-20] MEDS: BUDESONIDE 0.5 MG/2 ML NEB INH SCH ×2 (07:45→19:25)
--- NOTE | 2020-12-20 07:57 | PROVIDER PROGRESS NOTE ---
Assessment/Plan - Problem List (1) NSTEMI (non-ST elevated myocardial infarction) Assessment/Plan: Due to patient's worsening respiratory status yesterday and lethargy/somnolence, Chest x-ray was ordered which showed acute CHF. Troponin levels were checked which came back at 959. Repeat troponin was 792.9 She did/does not have chest pain. Repeat chest x-ray today 12/20/20 showed possible improvement in CHF. The patient was given Lasix 40 mg IV yesterday. This was repeated today. Atorvastatin was changed from 20 to 40 mg p.o. every afternoon. She is on Plavix 75 mg p.o. daily. Metoprolol succinate 25 mg p.o. daily ordered. Consider repeating at 2D echocardiogram on 12/22/20. We will also consider a stress test. Patient would need cardiology follow-up upon discharge. We will continue monitoring closely on telemetry. (2) UTI (urinary tract infection) Qualifiers: Urinary tract infection type: acute cystitis Hematuria presence: with hematuria Qualified Code(s): N30.01 - Acute cystitis with hematuria Assessment/Plan: Continued to improve. White blood cell count today is 7.1. This is down from 11.6. She remains afebrile. Urine and blood cultures are no growth to date. (3) Acute exacerbation of COPD with asthma Assessment/Plan: On DuoNeb and albuterol as needed. Solu-Medrol 80 mg IV 3 times daily for total of 6 doses was ordered. Continue budesonide twice daily. Patient is significantly improved today. She is off supplemental oxygen. Oxygen saturation is 99% on room air. (4) Depression Assessment/Plan: On escitalopram 10 mg p.o. daily (5) GERD (gastroesophageal reflux disease) Assessment/Plan: Famotidine and 40 mg p.o. daily - Current Meds Current Meds: Current Medications Generic Name Dose Route Start Last Admin Trade Name Freq PRN Reason Stop Dose Admin Acetaminophen 650 mg 12/17/20 13:19 12/19/20 05:19 Acetaminophen 325 Mg Tablet PO 650 mg Q4HR PRN Administration Pain 1 to 4 Albuterol 2.5 mg 12/17/20 16:08 12/19/20 12:21 Albuterol Neb 2.5 Mg/3 Ml INH 2.5 mg Q3H PRN Administration Wheezing Albuterol/Ipratropium 3 ml 12/17/20 13:33 12/19/20 19:30 Ipratropium/Albuterol 3 Ml Neb INH 3 ml Q4HR PRN Administration Wheezing Budesonide 0.5 mg 12/17/20 19:00 12/19/20 19:30 Budesonide 0.5 Mg/2 Ml Neb INH 0.5 mg RTBID BLAS Administration Clopidogrel Bisulfate 75 mg 12/18/20 09:00 12/19/20 08:52 Clopidogrel 75 Mg Tablet PO Not Given DAILY BLAS Docusate Sodium 250 - 500 mg 12/19/20 09:00 12/19/20 08:52 Docusate Sodium 250 Mg Capsule PO Not Given DAILY BLAS Escitalopram Oxalate 10 mg 12/18/20 09:00 12/19/20 08:52 Escitalopram 10 Mg Tablet PO Not Given DAILY BLAS Famotidine 20 mg 12/20/20 07:00 12/20/20 06:27 Famotidine 20 Mg Tablet PO 20 mg 0700 BLAS Administration Ferrous Sulfate 325 mg 12/18/20 08:00 12/19/20 08:51 Ferrous Sulfate 325 Mg Tablet PO Not Given DAILYWM BLAS Cefepime HCl 2 gm/ Sodium 100 mls @ 200 mls/hr 12/19/20 12:00 12/20/20 00:11 Chloride IV Infused Q12H [facility] Infusion Methylprednisolone 80 mg 12/19/20 15:00 12/20/20 06:28 Methylprednisolone Succinate 40 Mg/Ml Vial IVP 12/21/20 06:01 80 mg TID BLAS Administration Multi-Ingredient Ointment 1 applic 12/18/20 12:19 12/18/20 21:56 Zinc Oxide 20% Oint 30 Gm Tube TOP 1 applic PRN PRN Administration Skin Care Ondansetron HCl 4 mg 12/17/20 13:19 12/17/20 16:09 Ondansetron 4 Mg/2 Ml Vial IVP 4 mg Q6HR PRN Administration Nausea / Vomiting Patient Own Med - 1 each 12/18/20 09:00 12/19/20 08:52 Olopatadine EACHEYE Not Given Ophthalmic Solution DAILY BLAS Polyethylene Glycol 17 gm 12/18/20 09:00 12/19/20 08:52 Polyethylene Glycol 3350 17 Gm Packet PO Not Given DAILY BLAS Senna 8.6 - 17.2 mg 12/19/20 09:00 12/19/20 08:52 Senna 8.6 Mg Tablet PO Not Given DAILY [facility] Sodium Chloride 10 ml 12/17/20 17:00 12/19/20 23:41 Sodium Chloride Flush 0.9% 10 Ml Syringe IVP 10 ml 0100,0900,1700 [facility] Administration - Lab Result Fish Bone Diagrams: 12/20/20 05:36 12/20/20 05:36 - Additional Planning My Orders: My Active Orders 12/19/20 07:25 Blood Culture [CULTURE, BLOOD #1] [RM] Routine 12/19/20 09:00 Docusate Sodium 250Mg Capsule [Colace 250Mg Capsule] 250 - 500 mg PO DAILY Senna [Senokot] 8.6 - 17.2 mg PO DAILY 12/19/20 12:00 Cefepime 2 gm Sodium Chloride 0.9% Minibag [Normal Saline 0.9% Minibag] 100 ml IV Q12H 12/19/20 15:00 methylPREDNISolone SUCCINATE [SOLU-Medrol (40MG VIAL)] 80 mg IVP TID 12/20/20 07:00 Famotidine [Pepcid] 20 mg PO 0700 12/20/20 09:00 Enoxaparin [Lovenox] 40 mg SUBQ DAILY FUROSEMIDE INJ 20mg VIAL [LASIX INJ 20mg VIAL] 20 mg IVP DAILY Metoprolol Succinate [Toprol Xl] 25 mg PO DAILY 12/20/20 21:00 Atorvastatin [Lipitor] 40 mg PO QPM 12/21/20 05:00 BMP - BASIC METABOLIC PANEL [CHEM] DAILYLAB CBC - COMP BLD CT W/AUTO DIFF [HEME] DAILYLAB 12/22/20 05:00 BMP - BASIC METABOLIC PANEL [CHEM] DAILYLAB CBC - COMP BLD CT W/AUTO DIFF [HEME] DAILYLAB Subjective - Subjective Patient Reports: Other (Patient is more awake and alert today. She denied chest pain but complained of difficulty breathing. At the time of visit she complained of thirst and asked for water to drink. She was later transferred to the bedside chair when she rested comfortably with no difficulties.) Objective Vital Signs: Vital Signs - 24 hr 12/19/20 12/19/20 12/19/20 08:40 09:52 12:22 Temperature 36.6 C Heart Rate 92 90 Heart Rate [ 98 Brachial] Respiratory 22 22 24 Rate Blood Pressure 139/51 H [Right Brachial artery] O2 Saturation 92 12/19/20 12/19/20 12/19/20 13:00 15:39 19:30 Temperature 36.7 C 36.9 C Heart Rate 93 Heart Rate [ 91 89 Brachial] Respiratory 24 18 20 Rate Blood Pressure 143/54 H 155/54 H [Right Brachial artery] O2 Saturation 97 95 12/19/20 12/20/20 12/20/20 20:59 00:25 05:00 Temperature 37.1 C 36.9 C 36.9 C Heart Rate Heart Rate [ 92 91 98 Brachial] Respiratory 18 18 16 Rate Blood Pressure 166/88 H 148/92 H [Right Brachial artery] O2 Saturation 98 100 100 12/20/20 07:48 Temperature 36.6 C Heart Rate Heart Rate [ 94 Brachial] Respiratory 20 Rate Blood Pressure 170/84 H [Right Brachial artery] O2 Saturation 99 Oxygen O2 Source Room air Oxygen Flow Rate 2 I&O (Last 24 Hrs): Intake and Output Totals x24h 12/18/20 12/19/20 12/20/20 23:59 23:59 23:59 Intake Total 3570 2125 100 Output Total 400 400 Balance 3570 1725 -300 General: Alert, Mild distress HEENT: PERRLA, EOMI Neck: Supple, No JVD Lymphatic: no adenopathy Neuro: Alert, Non Focal Cardiovascular: Regular rate, No murmurs Respiratory: Chest non-tender, Other (Decreased air movement. Mild wheezing) Abdomen: Normal bowel sounds, Soft, No tenderness Extremities: No clubbing, No cyanosis, No edema Skin: No rashes, No breakdown, No significant lesion - Results Results: Laboratory Results WBC 7.1 x10^3/uL (4.8-10.8) 12/20/20 05:36 RBC 3.65 10^6/uL (4.20-5.40) L 12/20/20 05:36 Hgb 10.9 g/dL (12.0-16.0) L 12/20/20 05:36 Hct 35.6 % (37.0-47.0) L 12/20/20 05:36 MCV 97.5 fL (81.0-99.0) 12/20/20 05:36 MCH 29.9 pg (27.0-31.0) 12/20/20 05:36 MCHC 30.6 g/dL (32.0-36.0) L 12/20/20 05:36 RDW 13.8 % (12.0-15.0) 12/20/20 05:36 Plt Count 147 10^3/uL (130-450) 12/20/20 05:36 MPV 11.2 fL (7.9-10.8) H 12/20/20 05:36 Neut # (Auto) 6.8 10^3/uL (1.5-6.6) H 12/20/20 05:36 Lymph # (Auto) 0.2 10^3/uL (1.5-3.5) L 12/20/20 05:36 [place] # (Auto) 0.1 10^3/uL (0.0-1.0) 12/20/20 05:36 Eos # (Auto) 0.0 10^3/uL (0.0-0.7) 12/20/20 05:36 Baso # (Auto) 0.0 10^3/uL (0.0-0.1) 12/20/20 05:36 Absolute Nucleated RBC 0.00 x10^3/uL 12/20/20 05:36 Nucleated RBC % 0.0 /100WBC 12/20/20 05:36 Bld Gas Analysis Time 1347 12/19/20 13:47 Sample Site RIGHT RADIAL 12/19/20 13:47 ABG pH 7.32 (7.35-7.45) L 12/19/20 13:47 ABG pCO2 38 mmHg (34-45) 12/19/20 13:47 ABG pO2 78 mmHg (80-100) L 12/19/20 13:47 ABG HCO3 19.2 mmol/L (22.0-26.0) L 12/19/20 13:47 ABG Total CO2 20.4 MMOL/L (21.0-29.0) L 12/19/20 13:47 ABG O2 Saturation 96 % (94-98) 12/19/20 13:47 ABG Base Excess -6.2 mmol/L (-2.0-3.0) L 12/19/20 13:47 Mykel Test POSITIVE 12/19/20 13:47 Room Air YES 12/19/20 13:47 Sodium 145 mmol/L (135-145) 12/20/20 05:36 Potassium 4.1 mmol/L (3.5-5.0) 12/20/20 05:36 Chloride 113 mmol/L (101-111) H 12/20/20 05:36 Carbon Dioxide 22 mmol/L (21-32) 12/20/20 05:36 Anion Gap 10.0 (6-13) 12/20/20 05:36 BUN 39 mg/dL (6-20) H 12/20/20 05:36 Creatinine 1.8 mg/dL (0.4-1.0) H 12/20/20 05:36 Estimated GFR (MDRD) 27 (>89) L 12/20/20 05:36 Glucose 165 mg/dL (70-100) H 12/20/20 05:36 Lactic Acid 1.1 mmol/L (0.5-2.2) 12/18/20 05:20 Calcium 9.3 mg/dL (8.5-10.3) 12/20/20 05:36 Iron 8 ug/dL (28-170) L 12/19/20 04:35 TIBC 176 ug/dL (250-450) L 12/19/20 04:35 % Saturation 5 % (20-50) L 12/19/20 04:35 Transferrin 126 mg/dL (192-382) L 12/19/20 04:35 Ferritin 463.5 ng/mL (11.0-306.8) H 12/19/20 04:35 Total Bilirubin 0.7 mg/dL (0.2-1.0) 12/17/20 09:22 AST 21 IU/L (10-42) 12/17/20 09:22 ALT 20 IU/L (10-60) 12/17/20 09:22 Alkaline Phosphatase 42 IU/L (42-121) 12/17/20 09:22 Troponin I High Sens 792.9 ng/L (2.3-14.8) H* 12/19/20 21:38 Total Protein 5.9 g/dL (6.7-8.2) L 12/17/20 09:22 Albumin 3.6 g/dL (3.2-5.5) 12/17/20 09:22 Globulin 2.3 g/dL (2.1-4.2) 12/17/20 09:22 Albumin/Globulin Ratio 1.6 (1.0-2.2) 12/17/20 09:22 Lipase 101 U/L (22-51) H 12/17/20 09:22 Vitamin B12 300 pg/mL (180-914) 12/19/20 04:35 Folate 22.36 ng/mL (5.90 - >24.8) 12/19/20 04:35 Urine Color YELLOW 12/17/20 12:15 Urine Clarity SL. CLOUDY (CLEAR) 12/17/20 12:15 Urine pH 6.0 PH (5.0-7.5) 12/17/20 12:15 Ur Specific [place] 1.020 (1.002-1.030) 12/17/20 12:15 Urine Protein 30 mg/dL (NEGATIVE) H 12/17/20 12:15 Urine Glucose (UA) NEGATIVE mg/dL (NEGATIVE) 12/17/20 12:15 Urine Ketones NEGATIVE mg/dL (NEGATIVE) 12/17/20 12:15 Urine Occult Blood MODERATE (NEGATIVE) H 12/17/20 12:15 Urine Nitrite NEGATIVE (NEGATIVE) 12/17/20 12:15 Urine Bilirubin NEGATIVE (NEGATIVE) 12/17/20 12:15 Urine Urobilinogen 0.2 (NORMAL) E.U./dL (NORMAL) 12/17/20 12:15 Ur Leukocyte Esterase SMALL (NEGATIVE) H 12/17/20 12:15 Urine RBC 11-25 /HPF (0-5) H 12/17/20 12:15 Urine WBC 11-25 /HPF (0-5) H 12/17/20 12:15 Ur Squamous Epith Cells FEW Squamous (<= Few) 12/17/20 12:15 Amorphous Sediment Few /LPF 12/17/20 12:15 Urine Bacteria Few /HPF (None Seen) 12/17/20 12:15 Urine Mucus Moderate Strands 12/17/20 12:15 Ur Microscopic Review INDICATED 12/17/20 12:15 Urine Culture Comments INDICATED 12/17/20 12:15 Nasal Adenovirus (PCR) NOT DETECTED 12/17/20 13:09 Nasal B. parapertussis DNA (PCR) NOT DETECTED 12/17/20 13:09 Nasal Coronavir 229E PCR NOT DETECTED 12/17/20 13:09 Nasal Coronavir HKU1 PCR NOT DETECTED 12/17/20 13:09 Nasal Coronavir NL63 PCR NOT DETECTED 12/17/20 13:09 Nasal Coronavir OC43 PCR NOT DETECTED 12/17/20 13:09 Nasal Enterovir/Rhinovir PCR NOT DETECTED 12/17/20 13:09 Nasal Influenza B PCR NOT DETECTED 12/17/20 13:09 Nasal Influenza A PCR NOT DETECTED 12/17/20 13:09 Nasal Parainfluen 1 PCR NOT DETECTED 12/17/20 13:09 Nasal Parainfluen 2 PCR NOT DETECTED 12/17/20 13:09 Nasal Parainfluen 3 PCR NOT DETECTED 12/17/20 13:09 Nasal Parainfluen 4 PCR NOT DETECTED 12/17/20 13:09 Nasal RSV (PCR) NOT DETECTED 12/17/20 13:09 Nasal B.pertussis DNA PCR NOT DETECTED 12/17/20 13:09 Nasal C.pneumoniae (PCR) NOT DETECTED 12/17/20 13:09 Ramo Human Metapneumo PCR NOT DETECTED 12/17/20 13:09 Nasal M.pneumoniae (PCR) NOT DETECTED 12/17/20 13:09 Nasal SARS-CoV-2 (PCR) NOT DETECTED 12/17/20 13:09 - Procedures Procedures: Procedures ELECTROCARDIOGRAM (12/12/12) ABX Reporting Has patient been on IV antibiotics over the past 48 hours?: Yes
[2020-12-20] MEDS ORDERED: ALBUTEROL NEB 2.5 MG/3 ML INH PRN (08:05)
[2020-12-20] MEDS ORDERED: FUROSEMIDE 20 MG/2 ML VIAL IVP STA (08:27)
[2020-12-20] MEDS: polyethylene glycoL 3350 17 GM PACKET PO SCH (08:49)
[2020-12-20] MEDS: CLOPIDOGREL 75 MG TABLET PO SCH (08:50)
[2020-12-20] MEDS: FERROUS SULFATE 325 MG TABLET PO SCH (08:50)
[2020-12-20] MEDS: ENOXAPARIN 40 MG/0.4 ML SYRINGE SUBQ SCH (08:51)
[2020-12-20] MEDS: DOCUSATE SODIUM 250 MG CAPSULE PO SCH (08:51)
[2020-12-20] MEDS: OLOPATADINE EACHEYE SCH (08:51)
[2020-12-20] MEDS: SENNA 8.6 MG TABLET PO SCH (08:51)
[2020-12-20] MEDS: ESCITALOPRAM 10 MG TABLET PO SCH (08:51)
[2020-12-20] MEDS: SODIUM CHLORIDE FLUSH 0.9% 10 ML SYRINGE IVP SCH ×3 (08:52→23:42)
[2020-12-20] MEDS ORDERED: METOPROLOL SUCCINATE 25 MG TABLET PO SCH (09:00)
[2020-12-20] MEDS ORDERED: FUROSEMIDE 20 MG/2 ML VIAL IVP SCH (09:00)
--- NOTE | 2020-12-20 09:18 | XRAY Report ---
PROCEDURE: Chest 1 View X-Ray INDICATIONS: dyspnea TECHNIQUE: One view of the chest was acquired. COMPARISON: 12/19/2020 FINDINGS: Surgical changes and devices: None. Lungs and pleura: No pleural effusions or pneumothorax. Question mild improvement in interstitial pu lmonary edema. Mediastinum: Mediastinal contours appear normal. Cardiomegaly. Bones and chest wall: No suspicious bony lesions. Overlying soft tissues appear unremarkable. IMPRESSION: Congestive heart failure, question slight improvement. Reviewed by: Aren Patel MD on 12/20/2020 9:17 AM PDT Approved by: Aren Patel MD on 12/20/2020 9:17 AM PDT Station ID: [id number]
[2020-12-20] MEDS: CEFEPIME 2 GM in SODIUM CHLORIDE 0.9% MINIBAG 100 ML IV SCH ×2 (12:20→23:41)
[2020-12-20] MEDS ORDERED: METOPROLOL 5 MG/5 ML VIAL IVP STA (17:06)
[2020-12-20] MEDS: ACETAMINOPHEN 325 MG TABLET PO PRN (17:40)
[2020-12-20] MEDS: METOPROLOL SUCCINATE 25 MG TABLET PO SCH (20:55)
[2020-12-20] MEDS: ATORVASTATIN 40 MG TABLET PO SCH (20:56)
[2020-12-21] MEDS: IPRATROPIUM/ALBUTEROL 3 ML NEB INH PRN ×3 (02:19→19:35)
[2020-12-21] MEDS: hydrALAZINE INJ 20 MG/ML VIAL IVP PRN ×2 (02:24→06:53)
[2020-12-21] MEDS: ACETAMINOPHEN 325 MG TABLET PO PRN (03:30)
[2020-12-21 05:10] LABS: BASOPHILS % (AUTO) 0.1 %; EOSINOPHILS # (AUTO) 0.2 10^3/uL (0.0-0.7); HCT - HEMATOCRIT 31.9 % (37.0-47.0); HGB - HEMOGLOBIN 10.3 g/dL (12.0-16.0); LYMPHOCYTES # (AUTO) 0.3 10^3/uL (1.5-3.5); LYMPHOCYTES % (AUTO) 2.9 %; MEAN CORPUSCULAR HEMOGLOBIN 30.3 pg (27.0-31.0); MEAN CORPUSCULAR HGB CONC 32.3 g/dL (32.0-36.0); MEAN CORPUSCULAR VOLUME 93.8 fL (81.0-99.0); MEAN PLATELET VOLUME 11.4 fL (7.9-10.8); MONOCYTES # (AUTO) 0.3 10^3/uL (0.0-1.0); NEUTROPHILS # (AUTO) 8.5 10^3/uL (1.5-6.6); NEUTROPHILS % (AUTO) 91.7 %; PLT - PLATELET COUNT 146 10^3/uL (130-450); RED CELL DISTRIBUTION WIDTH 13.5 % (12.0-15.0); WHITE BLOOD COUNT 9.3 x10^3/uL (4.8-10.8)
[2020-12-21 05:25] LABS: CALCIUM 9.4 mg/dL (8.5-10.3); POTASSIUM 3.2 mmol/L (3.5-5.0)
[2020-12-21] MEDS: FAMOTIDINE 20 MG TABLET PO SCH (06:43)
[2020-12-21] MEDS: methylPREDNISolone SUCCINATE 40 MG/ML VIAL IVP SCH (06:43)
[2020-12-21] MEDS: BUDESONIDE 0.5 MG/2 ML NEB INH SCH ×2 (07:33→19:35)
[2020-12-21] MEDS: OLOPATADINE EACHEYE SCH (07:58)
[2020-12-21] MEDS: DOCUSATE SODIUM 250 MG CAPSULE PO SCH (07:58)
[2020-12-21] MEDS: SENNA 8.6 MG TABLET PO SCH (07:59)
[2020-12-21] MEDS ORDERED: POTASSIUM CHLORIDE 20 MEQ TABLET PO ONE (08:00)
--- NOTE | 2020-12-21 08:02 | PROVIDER PROGRESS NOTE ---
Assessment/Plan - Problem List (1) NSTEMI (non-ST elevated myocardial infarction) Assessment/Plan: Metoprolol was increased to 50 mg p.o. bid today. Atorvastatin 40 mg p.o. every afternoon. On plavix 75mg po daily Continue telemetry monitoring. We will hold off on a stress test because patient's renal function will limit potential coronary angiogram Focus on medical management. Patient will follow with cardiology upon discharge (2) Atrial fibrillation Assessment/Plan: New onset Patient received diltiazem 10mg IV X2 and metropolol 5mg IV X1 Metoprolol succinate was increased to 50mg po bid If patient's heart rate sustains greater than 120's Will transfer to the ICU for diltiazem gtt Will consider initiating a NOAC Repeat 2D echo in the morning consider significant cardiac developments since last echo. Patient will need to follow up with cardiology upon discharge (3) UTI (urinary tract infection) Qualifiers: Urinary tract infection type: acute cystitis Hematuria presence: with h ematuria Qualified Code(s): N30.01 - Acute cystitis with hematuria Assessment/Plan: Resolved. Urine culture was no growth to dated Here WBC is normal at 9.3 and she is afebrile. She received antibiotics for a total of 5 days Antibiotics stopped (4) Acute exacerbation of COPD with asthma Assessment/Plan: On DuoNeb and albuterol as needed. Continue budesonide twice daily. Patient is significantly improved today. Oxygen saturation is 99% on room air. (5) Depression Assessment/Plan: On escitalopram 10 mg p.o. daily (6) GERD (gastroesophageal reflux disease) Assessment/Plan: Famotidine and 40 mg p.o. daily (7) ARF (acute renal failure) Assessment/Plan: Creatinine today was 2.0, BUN 52, eGFR 24 Lasix discontinued. Continue to hold losartan Will hold off on any fluids due to CHF on CXR 2 days ago - Current Meds Current Meds: Current Medications Generic Name Dose Route Start Last Admin Trade Name Freq PRN Reason Stop Dose Admin Acetaminophen 650 mg 12/17/20 13:19 12/21/20 03:30 Acetaminophen 325 Mg Tablet PO 650 mg Q4HR PRN Administration Pain 1 to 4 Albuterol/Ipratropium 3 ml 12/20/20 08:05 12/21/20 07:33 Ipratropium/Albuterol 3 Ml Neb INH 3 ml Q4HR PRN Administration Wheezing Atorvastatin Calcium 40 mg 12/20/20 21:00 12/20/20 20:56 Atorvastatin 40 Mg Tablet PO 40 mg QPM BLAS Administration Budesonide 0.5 mg 12/20/20 08:00 12/21/20 07:33 Budesonide 0.5 Mg/2 Ml Neb INH 0.5 mg RTBID BLAS Administration Clopidogrel Bisulfate 75 mg 12/18/20 09:00 12/20/20 08:50 Clopidogrel 75 Mg Tablet PO 75 mg DAILY BLAS Administration Docusate Sodium 250 - 500 mg 12/19/20 09:00 12/21/20 07:58 Docusate Sodium 250 Mg Capsule PO Not Given DAILY BLAS Enoxaparin Sodium 40 mg 12/20/20 09:00 12/20/20 08:51 Enoxaparin 40 Mg/0.4 Ml Syringe SUBQ 40 mg DAILY BLAS Administration Escitalopram Oxalate 10 mg 12/18/20 09:00 12/20/20 08:51 Escitalopram 10 Mg Tablet PO 10 mg DAILY BLAS Administration Famotidine 20 mg 12/20/20 07:00 12/21/20 06:43 Famotidine 20 Mg Tablet PO 20 mg 0700 [facility] Administration Ferrous Sulfate 325 mg 12/18/20 08:00 12/20/20 08:50 Ferrous Sulfate 325 Mg Tablet PO 325 mg DAILYWM BLAS Administration Hydralazine HCl 10 mg 12/20/20 17:07 12/21/20 06:53 Hydralazine Inj 20 Mg/Ml Vial IVP 10 mg Q4H PRN Administration PER PHYSICIAN ORDER Metoprolol Succinate 25 mg 12/20/20 21:00 12/20/20 20:55 Metoprolol Succinate 25 Mg Tablet PO 25 mg BID [facility] Administration Multi-Ingredient Ointment 1 applic 12/18/20 12:19 12/18/20 21:56 Zinc Oxide 20% Oint 30 Gm Tube TOP 1 applic PRN PRN Administration Skin Care Ondansetron HCl 4 mg 12/17/20 13:19 12/17/20 16:09 Ondansetron 4 Mg/2 Ml Vial IVP 4 mg Q6HR PRN Administration Nausea / Vomiting Patient Own Med - 1 each 12/18/20 09:00 12/21/20 07:58 Olopatadine EACHEYE Not Given Ophthalmic Solution DAILY [facility] Polyethylene Glycol 17 gm 06/03/21 09:00 12/20/20 08:49 Polyethylene Glycol 3350 17 Gm Packet PO 17 gm DAILY BLAS Administration Senna 8.6 - 17.2 mg 12/19/20 09:00 12/21/20 07:59 Senna 8.6 Mg Tablet PO Not Given DAILY BLAS Sodium Chloride 10 ml 12/17/20 17:00 12/20/20 23:42 Sodium Chloride Flush 0.9% 10 Ml Syringe IVP 10 ml 0100,0900,1700 BLAS Administration - Lab Result Fish Bone Diagrams: 12/21/20 04:50 12/21/20 04:50 - Additional Planning My Orders: My Active Orders 12/20/20 08:00 Budesonide [Pulmicort] 0.5 mg INH RTBID 12/20/20 08:05 Albuterol 2.5 mg INH Q3H PRN Ipratropium/Albuterol [Duoneb] 3 ml INH Q4HR PRN 12/20/20 09:00 Enoxaparin [Lovenox] 40 mg SUBQ DAILY 12/20/20 15:40 Telemetry- [RC] Q4HR 12/20/20 17:07 hydrALAZINE INJ [Apresoline Inj] 10 mg IVP Q4H PRN 12/20/20 21:00 Atorvastatin [Lipitor] 40 mg PO QPM Metoprolol Succinate [Toprol Xl] 25 mg PO BID 12/21/20 08:00 Potassium Chloride [K-Dur] 40 meq PO ONCE ONE 12/21/20 12:00 Cefepime [Maxipime] 1 gm Sodium Chloride 0.9% Minibag [Normal Saline 0.9% Minibag] 100 ml IV Q12H 12/22/20 05:00 BMP - BASIC METABOLIC PANEL [CHEM] DAILYLAB CBC - COMP BLD CT W/AUTO DIFF [HEME] DAILYLAB <Allison Stephen F - Last Filed: 12/21/20 16:45> - Current Meds Current Meds: Current Medications Generic Name Dose Route Start Last Admin Trade Name Freq PRN Reason Stop Dose Admin Acetaminophen 650 mg 12/17/20 13:19 12/21/20 03:30 Acetaminophen 325 Mg Tablet PO 650 mg Q4HR PRN Administration Pain 1 to 4 Albuterol/Ipratropium 3 ml 06/05/21 08:05 12/21/20 19:35 Ipratropium/Albuterol 3 Ml Neb INH 3 ml Q4HR PRN Administration Wheezing Atorvastatin Calcium 40 mg 12/20/20 21:00 12/20/20 20:56 Atorvastatin 40 Mg Tablet PO 40 mg QPM BLAS Administration Budesonide 0.5 mg 12/20/20 08:00 12/21/20 19:35 Budesonide 0.5 Mg/2 Ml Neb INH 0.5 mg RTBID BLAS Administration Carboxymethylcellulose 1 drops 12/17/20 15:39 12/21/20 11:09 Carboxymethylcellulose Ophth Drops EACHEYE 1 ea BID PRN Administration Dry Eye Clopidogrel Bisulfate 75 mg 12/18/20 09:00 12/21/20 08:27 Clopidogrel 75 Mg Tablet PO 75 mg DAILY BLAS Administration Docusate Sodium 250 - 500 mg 12/19/20 09:00 12/21/20 07:58 Docusate Sodium 250 Mg Capsule PO Not Given DAILY BLAS Enoxaparin Sodium 40 mg 12/20/20 09:00 12/21/20 08:27 Enoxaparin 40 Mg/0.4 Ml Syringe SUBQ 40 mg DAILY BLAS Administration Escitalopram Oxalate 10 mg 12/18/20 09:00 12/21/20 08:27 Escitalopram 10 Mg Tablet PO 10 mg DAILY BLAS Administration Famotidine 20 mg 12/20/20 07:00 12/21/20 06:43 Famotidine 20 Mg Tablet PO 20 mg 0700 BLAS Administration Ferrous Sulfate 325 mg 12/18/20 08:00 12/21/20 08:27 Ferrous Sulfate 325 Mg Tablet PO 325 mg DAILYWM BLAS Administration Multi-Ingredient Ointment 1 applic 12/18/20 12:19 12/18/20 21:56 Zinc Oxide 20% Oint 30 Gm Tube TOP 1 applic PRN PRN Administration Skin Care Ondansetron HCl 4 mg 12/17/20 13:19 12/21/20 10:34 Ondansetron 4 Mg/2 Ml Vial IVP 4 mg Q6HR PRN Administration Nausea / Vomiting Patient Own Med - 1 each 12/18/20 09:00 12/21/20 07:58 Olopatadine EACHEYE Not Given Ophthalmic Solution DAILY [facility] Polyethylene Glycol 17 gm 12/18/20 09:00 12/21/20 08:27 Polyethylene Glycol 3350 17 Gm Packet PO Not Given DAILY BLAS Senna 8.6 - 17.2 mg 12/19/20 09:00 12/21/20 07:59 Senna 8.6 Mg Tablet PO Not Given DAILY BLAS Sodium Chloride 10 ml 12/17/20 17:00 12/21/20 16:20 Sodium Chloride Flush 0.9% 10 Ml Syringe IVP 10 ml 0100,0900,1700 BLAS Administration - Lab Result Fish Bone Diagrams: 12/21/20 04:50 12/21/20 04:50 - EKG Results EKG Interpreted Independently: Yes EKG Comparison: Changed from prior EKG EKG Findings: Atrial fib, ventricular rate 110 - 130, right bundle branch block, no ischemic changes. Since previous EKG, the A. fib is new. - Additional Planning My Orders: My Active Orders 12/22/20 09:00 Metoprolol Succinate [Toprol Xl] 10 mg PO BID <Shayy Banuelos D - Last Filed: 12/21/20 20:28> Subjective - Subjective Patient Reports: Other (Patient was resting comfortably at initial visit. Later she complained of feeling nauseous. At the same time she was tachycardic with an irregular rhythm. She denied dyspnea but reported brief/ transient chest pain. She denued abdominal pain, fever or chills.) <Allison Stepehn - Last Filed: 12/21/20 16:45> Objective Vital Signs: Vital Signs - 24 hr 12/20/20 12/20/20 12/20/20 12:16 13:00 15:44 Temperature 36.5 C 36.9 C Heart Rate 96 Heart Rate [ 89 97 Brachial] Respiratory 20 17 18 Rate Blood Pressure Blood Pressure 182/65 H 188/89 H [Right Brachial artery] O2 Saturation 98 94 12/20/20 12/20/20 12/20/20 17:32 17:40 17:45 Temperature Heart Rate Heart Rate [ 83 82 Brachial] Respiratory Rate Blood Pressure 188/84 H Blood Pressure 194/83 H 196/82 H [Right Brachial artery] O2 Saturation 12/20/20 12/20/20 12/20/20 17:50 18:00 18:16 Temperature Heart Rate Heart Rate [ 85 85 81 Brachial] Respiratory Rate Blood Pressure Blood Pressure 198/83 H 153/76 H 147/86 H [Right Brachial artery] O2 Saturation 12/20/20 12/20/20 12/20/20 18:32 19:25 20:50 Temperature 36.4 C L Heart Rate 81 Heart Rate [ 83 92 Brachial] Respiratory 16 18 Rate Blood Pressure Blood Pressure 161/91 H 176/86 H [Right Brachial artery] O2 Saturation 95 12/20/20 12/20/20 12/21/20 21:40 23:36 02:16 Temperature 37.1 C Heart Rate 86 Heart Rate [ 87 Brachial] Respiratory 17 18 Rate Blood Pressure Blood Pressure 151/82 H 157/103 H [Right Brachial artery] O2 Saturation 98 12/21/20 12/21/20 12/21/20 02:24 02:44 02:53 Temperature Heart Rate Heart Rate [ 95 96 Brachial] Respiratory Rate Blood Pressure 201/83 H Blood Pressure 157/61 H 156/65 H [Right Brachial artery] O2 Saturation 12/21/20 12/21/20 12/21/20 02:54 02:57 03:30 Temperature Heart Rate Heart Rate [ 95 101 H Brachial] Respiratory Rate Blood Pressure 158/54 H Blood Pressure 158/54 H 169/69 H [Right Brachial artery] O2 Saturation 12/21/20 12/21/20 12/21/20 03:56 04:04 05:35 Temperature 36.9 C Heart Rate Heart Rate [ 92 Brachial] Respiratory 16 Rate Blood Pressure Blood Pressure 170/64 H 163/63 H 184/80 H [Right Brachial artery] O2 Saturation 96 12/21/20 12/21/20 12/21/20 06:43 06:47 07:23 Temperature Heart Rate Heart Rate [ Brachial] Respiratory Rate Blood Pressure 137/61 H Blood Pressure 132/83 H 180/56 H [Right Brachial artery] O2 Saturation 12/21/20 12/21/20 07:33 07:46 Temperature 37.1 C Heart Rate 86 Heart Rate [ 87 Brachial] Respiratory 16 20 Rate Blood Pressure Blood Pressure 137/61 H [Right Brachial artery] O2 Saturation 97 Oxygen O2 Source Room air Oxygen Flow Rate 2 I&O (Last 24 Hrs): Intake and Output Totals x24h 12/19/20 12/20/20 12/21/20 23:59 23:59 23:59 Intake Total 2125 420 400 Output Total 400 1225 2200 Balance 1725 -805 -1800 General: Alert, Oriented x3, Mild distress (nauseous) HEENT: PERRLA, EOMI Neck: Supple, No JVD Neuro: Non Focal Cardiovascular: Other (iregularly irregular, tachycardia) Respiratory: No respiratory distress, Breath sounds nml Abdomen: Normal bowel sounds, Soft, No tenderness Extremities: No clubbing, No cyanosis, No edema, No tenderness/swelling Skin: No rashes, No breakdown, No significant lesion - Results Results: Laboratory Results WBC 9.3 x10^3/uL (4.8-10.8) 12/21/20 04:50 RBC 3.40 10^6/uL (4.20-5.40) L 12/21/20 04:50 Hgb 10.3 g/dL (12.0-16.0) L 12/21/20 04:50 Hct 31.9 % (37.0-47.0) L 12/21/20 04:50 MCV 93.8 fL (81.0-99.0) 12/21/20 04:50 MCH 30.3 pg (27.0-31.0) 12/21/20 04:50 MCHC 32.3 g/dL (32.0-36.0) 12/21/20 04:50 RDW 13.5 % (12.0-15.0) 12/21/20 04:50 Plt Count 146 10^3/uL (130-450) 12/21/20 04:50 MPV 11.4 fL (7.9-10.8) H 12/21/20 04:50 Neut # (Auto) 8.5 10^3/uL (1.5-6.6) H 12/21/20 04:50 Lymph # (Auto) 0.3 10^3/uL (1.5-3.5) L 12/21/20 04:50 [place] # (Auto) 0.3 10^3/uL (0.0-1.0) 12/21/20 04:50 Eos # (Auto) 0.2 10^3/uL (0.0-0.7) 12/21/20 04:50 Baso # (Auto) 0.0 10^3/uL (0.0-0.1) 12/21/20 04:50 Absolute Nucleated RBC 0.00 x10^3/uL 12/21/20 04:50 Nucleated RBC % 0.0 /100WBC 12/21/20 04:50 Bld Gas Analysis Time 1347 12/19/20 13:47 Sample Site RIGHT RADIAL 12/19/20 13:47 ABG pH 7.32 (7.35-7.45) L 12/19/20 13:47 ABG pCO2 38 mmHg (34-45) 12/19/20 13:47 ABG pO2 78 mmHg (80-100) L 12/19/20 13:47 ABG HCO3 19.2 mmol/L (22.0-26.0) L 12/19/20 13:47 ABG Total CO2 20.4 MMOL/L (21.0-29.0) L 12/19/20 13:47 ABG O2 Saturation 96 % (94-98) 12/19/20 13:47 ABG Base Excess -6.2 mmol/L (-2.0-3.0) L 12/19/20 13:47 Mykel Test POSITIVE 12/19/20 13:47 Room Air YES 12/19/20 13:47 Sodium 142 mmol/L (135-145) 12/21/20 04:50 Potassium 3.2 mmol/L (3.5-5.0) L 12/21/20 04:50 Chloride 110 mmol/L (101-111) 12/21/20 04:50 Carbon Dioxide 21 mmol/L (21-32) 12/21/20 04:50 Anion Gap 11.0 (6-13) 12/21/20 04:50 BUN 52 mg/dL (6-20) H 12/21/20 04:50 Creatinine 2.0 mg/dL (0.4-1.0) H 12/21/20 04:50 Estimated GFR (MDRD) 24 (>89) L 12/21/20 04:50 Glucose 163 mg/dL (70-100) H 12/21/20 04:50 Lactic Acid 1.1 mmol/L (0.5-2.2) 12/18/20 05:20 Calcium 9.4 mg/dL (8.5-10.3) 12/21/20 04:50 Iron 8 ug/dL (28-170) L 12/19/20 04:35 TIBC 176 ug/dL (250-450) L 12/19/20 04:35 % Saturation 5 % (20-50) L 12/19/20 04:35 Transferrin 126 mg/dL (192-382) L 12/19/20 04:35 Ferritin 463.5 ng/mL (11.0-306.8) H 12/19/20 04:35 Total Bilirubin 0.7 mg/dL (0.2-1.0) 12/17/20 09:22 AST 21 IU/L (10-42) 12/17/20 09:22 ALT 20 IU/L (10-60) 12/17/20 09:22 Alkaline Phosphatase 42 IU/L (42-121) 12/17/20 09:22 Troponin I High Sens 792.9 ng/L (2.3-14.8) H* 12/19/20 21:38 Total Protein 5.9 g/dL (6.7-8.2) L 12/17/20 09:22 Albumin 3.6 g/dL (3.2-5.5) 12/17/20 09:22 Globulin 2.3 g/dL (2.1-4.2) 12/17/20 09:22 Albumin/Globulin Ratio 1.6 (1.0-2.2) 12/17/20 09:22 Lipase 101 U/L (22-51) H 12/17/20 09:22 Vitamin B12 300 pg/mL (180-914) 12/19/20 04:35 Folate 22.36 ng/mL (5.90 - >24.8) 12/19/20 04:35 Urine Color YELLOW 12/17/20 12:15 Urine Clarity SL. CLOUDY (CLEAR) 12/17/20 12:15 Urine pH 6.0 PH (5.0-7.5) 12/17/20 12:15 Ur Specific [place] 1.020 (1.002-1.030) 12/17/20 12:15 Urine Protein 30 mg/dL (NEGATIVE) H 12/17/20 12:15 Urine Glucose (UA) NEGATIVE mg/dL (NEGATIVE) 12/17/20 12:15 Urine Ketones NEGATIVE mg/dL (NEGATIVE) 12/17/20 12:15 Urine Occult Blood MODERATE (NEGATIVE) H 12/17/20 12:15 Urine Nitrite NEGATIVE (NEGATIVE) 12/17/20 12:15 Urine Bilirubin NEGATIVE (NEGATIVE) 12/17/20 12:15 Urine Urobilinogen 0.2 (NORMAL) E.U./dL (NORMAL) 12/17/20 12:15 Ur Leukocyte Esterase SMALL (NEGATIVE) H 12/17/20 12:15 Urine RBC 11-25 /HPF (0-5) H 12/17/20 12:15 Urine WBC 11-25 /HPF (0-5) H 12/17/20 12:15 Ur Squamous Epith Cells FEW Squamous (<= Few) 12/17/20 12:15 Amorphous Sediment Few /LPF 12/17/20 12:15 Urine Bacteria Few /HPF (None Seen) 12/17/20 12:15 Urine Mucus Moderate Strands 12/17/20 12:15 Ur Microscopic Review INDICATED 12/17/20 12:15 Urine Culture Comments INDICATED 12/17/20 12:15 Nasal Adenovirus (PCR) NOT DETECTED 12/17/20 13:09 Nasal B. parapertussis DNA (PCR) NOT DETECTED 12/17/20 13:09 Nasal Coronavir 229E PCR NOT DETECTED 12/17/20 13:09 Nasal Coronavir HKU1 PCR NOT DETECTED 12/17/20 13:09 Nasal Coronavir NL63 PCR NOT DETECTED 12/17/20 13:09 Nasal Coronavir OC43 PCR NOT DETECTED 12/17/20 13:09 Nasal Enterovir/Rhinovir PCR NOT DETECTED 12/17/20 13:09 Nasal Influenza B PCR NOT DETECTED 12/17/20 13:09 Nasal Influenza A PCR NOT DETECTED 12/17/20 13:09 Nasal Parainfluen 1 PCR NOT DETECTED 12/17/20 13:09 Nasal Parainfluen 2 PCR NOT DETECTED 12/17/20 13:09 Nasal Parainfluen 3 PCR NOT DETECTED 12/17/20 13:09 Nasal Parainfluen 4 PCR NOT DETECTED 12/17/20 13:09 Nasal RSV (PCR) NOT DETECTED 12/17/20 13:09 Nasal B.pertussis DNA PCR NOT DETECTED 12/17/20 13:09 Nasal C.pneumoniae (PCR) NOT DETECTED 12/17/20 13:09 Ramo Human Metapneumo PCR NOT DETECTED 12/17/20 13:09 Nasal M.pneumoniae (PCR) NOT DETECTED 12/17/20 13:09 Nasal SARS-CoV-2 (PCR) NOT DETECTED 12/17/20 13:09 - Procedures Procedures: Procedures ELECTROCARDIOGRAM (12/12/12) <Allison Stephen F - Last Filed: 12/21/20 16:45> Vital Signs: Vital Signs - 24 hr 12/20/20 12/20/20 12/20/20 20:50 21:40 23:36 Temperature 36.4 C L 37.1 C Heart Rate Heart Rate [ 92 87 Brachial] Respiratory 18 17 Rate Blood Pressure Blood Pressure [Left Brachial artery] Blood Pressure 176/86 H 151/82 H 157/103 H [Right Brachial artery] O2 Saturation 95 98 12/21/20 12/21/20 12/21/20 02:16 02:24 02:44 Temperature Heart Rate 86 Heart Rate [ 95 Brachial] Respiratory 18 Rate Blood Pressure 201/83 H Blood Pressure [Left Brachial artery] Blood Pressure 157/61 H [Right Brachial artery] O2 Saturation 12/21/20 12/21/20 12/21/20 02:53 02:54 02:57 Temperature Heart Rate Heart Rate [ 96 95 Brachial] Respiratory Rate Blood Pressure 158/54 H Blood Pressure [Left Brachial artery] Blood Pressure 156/65 H 158/54 H [Right Brachial artery] O2 Saturation 12/21/20 12/21/20 12/21/20 03:30 03:56 04:04 Temperature 36.9 C Heart Rate Heart Rate [ 101 H 92 Brachial] Respiratory 16 Rate Blood Pressure Blood Pressure [Left Brachial artery] Blood Pressure 169/69 H 170/64 H 163/63 H [Right Brachial artery] O2 Saturation 96 12/21/20 12/21/20 12/21/20 05:35 06:43 06:47 Temperature Heart Rate Heart Rate [ Brachial] Respiratory Rate Blood Pressure Blood Pressure [Left Brachial artery] Blood Pressure 184/80 H 132/83 H 180/56 H [Right Brachial artery] O2 Saturation 12/21/20 12/21/20 12/21/20 07:23 07:33 07:46 Temperature 37.1 C Heart Rate 86 Heart Rate [ 87 Brachial] Respiratory 16 20 Rate Blood Pressure 137/61 H Blood Pressure [Left Brachial artery] Blood Pressure 137/61 H [Right Brachial artery] O2 Saturation 97 12/21/20 12/21/20 12/21/20 09:01 11:36 11:39 Temperature 36.9 C Heart Rate Heart Rate [ 88 98 140 H Brachial] Respiratory 19 Rate Blood Pressure Blood Pressure [Left Brachial artery] Blood Pressure 142/50 H 109/41 L 134/57 H [Right Brachial artery] O2 Saturation 95 12/21/20 12/21/20 12/21/20 11:45 12:03 12:16 Temperature Heart Rate Heart Rate [ 100 103 H 105 H Brachial] Respiratory Rate Blood Pressure Blood Pressure [Left Brachial artery] Blood Pressure 139/66 H 116/77 121/61 [Right Brachial artery] O2 Saturation 99 12/21/20 12/21/20 12/21/20 15:07 15:08 15:15 Temperature Heart Rate Heart Rate [ 116 H 112 H Brachial] Respiratory Rate Blood Pressure 146/69 H Blood Pressure [Left Brachial artery] Blood Pressure 146/69 H 154/75 H [Right Brachial artery] O2 Saturation 12/21/20 12/21/20 12/21/20 15:30 15:44 15:54 Temperature 36.9 C Heart Rate Heart Rate [ 115 H 110 H 115 H Brachial] Respiratory 18 Rate Blood Pressure Blood Pressure [Left Brachial artery] Blood Pressure 139/104 H 160/90 H 160/90 H [Right Brachial artery] O2 Saturation 97 12/21/20 12/21/20 12/21/20 16:07 16:12 16:17 Temperature Heart Rate Heart Rate [ 100 103 H Brachial] Respiratory Rate Blood Pressure 158/96 H Blood Pressure [Left Brachial artery] Blood Pressure 159/76 H 140/58 H [Right Brachial artery] O2 Saturation 12/21/20 12/21/20 12/21/20 16:22 16:37 16:52 Temperature Heart Rate Heart Rate [ 85 95 90 Brachial] Respiratory Rate Blood Pressure Blood Pressure [Left Brachial artery] Blood Pressure 149/90 H 131/64 H 155/71 H [Right Brachial artery] O2 Saturation 12/21/20 12/21/20 12/21/20 17:08 17:15 17:20 Temperature Heart Rate Heart Rate [ 88 90 93 Brachial] Respiratory Rate Blood Pressure Blood Pressure [Left Brachial artery] Blood Pressure 163/70 H 144/83 H 134/79 H [Right Brachial artery] O2 Saturation 12/21/20 12/21/20 12/21/20 17:30 18:00 19:26 Temperature Heart Rate Heart Rate [ 100 100 105 H Brachial] Respiratory Rate Blood Pressure Blood Pressure 165/85 H [Left Brachial artery] Blood Pressure 123/67 133/74 H [Right Brachial artery] O2 Saturation 12/21/20 19:48 Temperature Heart Rate 110 H Heart Rate [ Brachial] Respiratory 16 Rate Blood Pressure Blood Pressure [Left Brachial artery] Blood Pressure [Right Brachial artery] O2 Saturation Oxygen O2 Source Room air Oxygen Flow Rate 2 I&O (Last 24 Hrs): Intake and Output Totals x24h 12/19/20 12/20/20 12/21/20 23:59 23:59 23:59 Intake Total 2125 420 725 Output Total 400 1225 2200 Balance 7156 -585 -9956 - Results Results: Laboratory Results WBC 9.3 x10^3/uL (4.8-10.8) 12/21/20 04:50 RBC 3.40 10^6/uL (4.20-5.40) L 12/21/20 04:50 Hgb 10.3 g/dL (12.0-16.0) L 12/21/20 04:50 Hct 31.9 % (37.0-47.0) L 12/21/20 04:50 MCV 93.8 fL (81.0-99.0) 12/21/20 04:50 MCH 30.3 pg (27.0-31.0) 12/21/20 04:50 MCHC 32.3 g/dL (32.0-36.0) 12/21/20 04:50 RDW 13.5 % (12.0-15.0) 12/21/20 04:50 Plt Count 146 10^3/uL (130-450) 12/21/20 04:50 MPV 11.4 fL (7.9-10.8) H 12/21/20 04:50 Neut # (Auto) 8.5 10^3/uL (1.5-6.6) H 12/21/20 04:50 Lymph # (Auto) 0.3 10^3/uL (1.5-3.5) L 12/21/20 04:50 [place] # (Auto) 0.3 10^3/uL (0.0-1.0) 12/21/20 04:50 Eos # (Auto) 0.2 10^3/uL (0.0-0.7) 12/21/20 04:50 Baso # (Auto) 0.0 10^3/uL (0.0-0.1) 12/21/20 04:50 Absolute Nucleated RBC 0.00 x10^3/uL 12/21/20 04:50 Nucleated RBC % 0.0 /100WBC 12/21/20 04:50 Bld Gas Analysis Time 1347 12/19/20 13:47 Sample Site RIGHT RADIAL 12/19/20 13:47 ABG pH 7.32 (7.35-7.45) L 12/19/20 13:47 ABG pCO2 38 mmHg (34-45) 12/19/20 13:47 ABG pO2 78 mmHg (80-100) L 12/19/20 13:47 ABG HCO3 19.2 mmol/L (22.0-26.0) L 12/19/20 13:47 ABG Total CO2 20.4 MMOL/L (21.0-29.0) L 12/19/20 13:47 ABG O2 Saturation 96 % (94-98) 12/19/20 13:47 ABG Base Excess -6.2 mmol/L (-2.0-3.0) L 12/19/20 13:47 Mykel Test POSITIVE 12/19/20 13:47 Room Air YES 12/19/20 13:47 Sodium 142 mmol/L (135-145) 12/21/20 04:50 Potassium 3.2 mmol/L (3.5-5.0) L 12/21/20 04:50 Chloride 110 mmol/L (101-111) 12/21/20 04:50 Carbon Dioxide 21 mmol/L (21-32) 12/21/20 04:50 Anion Gap 11.0 (6-13) 12/21/20 04:50 BUN 52 mg/dL (6-20) H 12/21/20 04:50 Creatinine 2.0 mg/dL (0.4-1.0) H 12/21/20 04:50 Estimated GFR (MDRD) 24 (>89) L 12/21/20 04:50 Glucose 163 mg/dL (70-100) H 12/21/20 04:50 Lactic Acid 1.1 mmol/L (0.5-2.2) 12/18/20 05:20 Calcium 9.4 mg/dL (8.5-10.3) 12/21/20 04:50 Iron 8 ug/dL (28-170) L 12/19/20 04:35 TIBC 176 ug/dL (250-450) L 12/19/20 04:35 % Saturation 5 % (20-50) L 12/19/20 04:35 Transferrin 126 mg/dL (192-382) L 12/19/20 04:35 Ferritin 463.5 ng/mL (11.0-306.8) H 12/19/20 04:35 Total Bilirubin 0.7 mg/dL (0.2-1.0) 12/17/20 09:22 AST 21 IU/L (10-42) 12/17/20 09:22 ALT 20 IU/L (10-60) 12/17/20 09:22 Alkaline Phosphatase 42 IU/L (42-121) 12/17/20 09:22 Troponin I High Sens 792.9 ng/L (2.3-14.8) H* 12/19/20 21:38 Total Protein 5.9 g/dL (6.7-8.2) L 12/17/20 09:22 Albumin 3.6 g/dL (3.2-5.5) 12/17/20 09:22 Globulin 2.3 g/dL (2.1-4.2) 12/17/20 09:22 Albumin/Globulin Ratio 1.6 (1.0-2.2) 12/17/20 09:22 Lipase 101 U/L (22-51) H 12/17/20 09:22 Vitamin B12 300 pg/mL (180-914) 12/19/20 04:35 Folate 22.36 ng/mL (5.90 - >24.8) 12/19/20 04:35 Urine Color YELLOW 12/17/20 12:15 Urine Clarity SL. CLOUDY (CLEAR) 12/17/20 12:15 Urine pH 6.0 PH (5.0-7.5) 12/17/20 12:15 Ur Specific [place] 1.020 (1.002-1.030) 12/17/20 12:15 Urine Protein 30 mg/dL (NEGATIVE) H 12/17/20 12:15 Urine Glucose (UA) NEGATIVE mg/dL (NEGATIVE) 12/17/20 12:15 Urine Ketones NEGATIVE mg/dL (NEGATIVE) 12/17/20 12:15 Urine Occult Blood MODERATE (NEGATIVE) H 12/17/20 12:15 Urine Nitrite NEGATIVE (NEGATIVE) 12/17/20 12:15 Urine Bilirubin NEGATIVE (NEGATIVE) 12/17/20 12:15 Urine Urobilinogen 0.2 (NORMAL) E.U./dL (NORMAL) 12/17/20 12:15 Ur Leukocyte Esterase SMALL (NEGATIVE) H 12/17/20 12:15 Urine RBC 11-25 /HPF (0-5) H 12/17/20 12:15 Urine WBC 11-25 /HPF (0-5) H 12/17/20 12:15 Ur Squamous Epith Cells FEW Squamous (<= Few) 12/17/20 12:15 Amorphous Sediment Few /LPF 12/17/20 12:15 Urine Bacteria Few /HPF (None Seen) 12/17/20 12:15 Urine Mucus Moderate Strands 12/17/20 12:15 Ur Microscopic Review INDICATED 12/17/20 12:15 Urine Culture Comments INDICATED 12/17/20 12:15 Nasal Adenovirus (PCR) NOT DETECTED 12/17/20 13:09 Nasal B. parapertussis DNA (PCR) NOT DETECTED 12/17/20 13:09 Nasal Coronavir 229E PCR NOT DETECTED 12/17/20 13:09 Nasal Coronavir HKU1 PCR NOT DETECTED 12/17/20 13:09 Nasal Coronavir NL63 PCR NOT DETECTED 12/17/20 13:09 Nasal Coronavir OC43 PCR NOT DETECTED 12/17/20 13:09 Nasal Enterovir/Rhinovir PCR NOT DETECTED 12/17/20 13:09 Nasal Influenza B PCR NOT DETECTED 12/17/20 13:09 Nasal Influenza A PCR NOT DETECTED 12/17/20 13:09 Nasal Parainfluen 1 PCR NOT DETECTED 12/17/20 13:09 Nasal Parainfluen 2 PCR NOT DETECTED 12/17/20 13:09 Nasal Parainfluen 3 PCR NOT DETECTED 12/17/20 13:09 Nasal Parainfluen 4 PCR NOT DETECTED 12/17/20 13:09 Nasal RSV (PCR) NOT DETECTED 12/17/20 13:09 Nasal B.pertussis DNA PCR NOT DETECTED 12/17/20 13:09 Nasal C.pneumoniae (PCR) NOT DETECTED 12/17/20 13:09 Ramo Human Metapneumo PCR NOT DETECTED 12/17/20 13:09 Nasal M.pneumoniae (PCR) NOT DETECTED 12/17/20 13:09 Nasal SARS-CoV-2 (PCR) NOT DETECTED 12/17/20 13:09 - Procedures Procedures: Procedures ELECTROCARDIOGRAM (12/12/12) <Shayy Banuelos D - Last Filed: 12/21/20 20:28> ABX Reporting Has patient been on IV antibiotics over the past 48 hours?: No <Allison Stephen - Last Filed: 12/21/20 16:45>
[2020-12-21] MEDS: SODIUM CHLORIDE FLUSH 0.9% 10 ML SYRINGE IVP SCH ×2 (08:27→16:20)
[2020-12-21] MEDS: ESCITALOPRAM 10 MG TABLET PO SCH (08:27)
[2020-12-21] MEDS: ENOXAPARIN 40 MG/0.4 ML SYRINGE SUBQ SCH (08:27)
[2020-12-21] MEDS: polyethylene glycoL 3350 17 GM PACKET PO SCH (08:27)
[2020-12-21] MEDS: METOPROLOL SUCCINATE 25 MG TABLET PO SCH (08:27)
[2020-12-21] MEDS: FERROUS SULFATE 325 MG TABLET PO SCH (08:27)
[2020-12-21] MEDS: CLOPIDOGREL 75 MG TABLET PO SCH (08:27)
[2020-12-21] MEDS: ONDANSETRON 4 MG/2 ML VIAL IVP PRN (10:34)
[2020-12-21] MEDS: CARBOXYMETHYLCELLULOSE OPHTH DROPS EACHEYE PRN (11:09)
[2020-12-21] MEDS ORDERED: diltiaZEM INJ 5 MG/ML VIAL IVP ONE ×3 (11:19→23:16)
[2020-12-21] MEDS ORDERED: CEFEPIME 1 GM in SODIUM CHLORIDE 0.9% MINIBAG 100 ML IV SCH (12:00)
[2020-12-21] MEDS ORDERED: METOPROLOL 5 MG/5 ML VIAL IVP STA (14:52)
[2020-12-21] MEDS ORDERED: METOPROLOL SUCCINATE 25 MG TABLET PO SCH (19:30)
[2020-12-21] MEDS: ATORVASTATIN 40 MG TABLET PO SCH (21:50)
[2020-12-22] MEDS: SODIUM CHLORIDE FLUSH 0.9% 10 ML SYRINGE IVP SCH ×3 (00:23→18:05)
[2020-12-22] MEDS: ACETAMINOPHEN 325 MG TABLET PO PRN ×2 (00:45→08:16)
[2020-12-22] MEDS ORDERED: diltiaZEM INJ 5 MG/ML VIAL IVP ONE (05:00)
[2020-12-22 05:22] LABS: BASOPHILS % (AUTO) 0.1 %; HCT - HEMATOCRIT 33.4 % (37.0-47.0); HGB - HEMOGLOBIN 10.6 g/dL (12.0-16.0); LYMPHOCYTES # (AUTO) 0.4 10^3/uL (1.5-3.5); MEAN CORPUSCULAR HEMOGLOBIN 30.2 pg (27.0-31.0); MEAN CORPUSCULAR HGB CONC 31.7 g/dL (32.0-36.0); MEAN CORPUSCULAR VOLUME 95.2 fL (81.0-99.0); MEAN PLATELET VOLUME 11.2 fL (7.9-10.8); MONOCYTES # (AUTO) 0.5 10^3/uL (0.0-1.0); MONOCYTES % (AUTO) 4.5 %; NEUTROPHILS # (AUTO) 9.7 10^3/uL (1.5-6.6); PLT - PLATELET COUNT 173 10^3/uL (130-450); RED BLOOD COUNT 3.51 10^6/uL (4.20-5.40); RED CELL DISTRIBUTION WIDTH 13.8 % (12.0-15.0); WHITE BLOOD COUNT 10.6 x10^3/uL (4.8-10.8)
[2020-12-22 05:30] LABS: CALCIUM 9.7 mg/dL (8.5-10.3); CREATININE 1.9 mg/dL (0.4-1.0); MAGNESIUM 1.9 mg/dL (1.7-2.8)
[2020-12-22] MEDS: ZINC OXIDE 20% OINT 30 GM TUBE TOP PRN (06:05)
[2020-12-22] MEDS: FAMOTIDINE 20 MG TABLET PO SCH (06:05)
[2020-12-22] MEDS: BUDESONIDE 0.5 MG/2 ML NEB INH SCH ×2 (07:09→20:59)
[2020-12-22] MEDS: IPRATROPIUM/ALBUTEROL 3 ML NEB INH PRN (07:09)
--- NOTE | 2020-12-22 08:12 | PROVIDER PROGRESS NOTE ---
Assessment/Plan - Problem List (1) NSTEMI (non-ST elevated myocardial infarction) Assessment/Plan: Metoprolol was again increased to 100 mg p.o. bid today. Atorvastatin 40 mg p.o. every afternoon. On plavix 75mg po daily Continue telemetry monitoring. We will hold off on a stress test because patient's renal function will limit potential coronary angiogram Focus on medical management. Patient will follow with cardiology upon discharge Also the patient agrees with conservative management only. Troponin was repeated overnight and early this morning for a brief episode of chest pain. The levels were 282.2 and 211.5. These are lower than the previous check on 12/19/20 when it was in the 900s and then 700s. Eliquis 2.5 mg p.o. twice daily was initiated today 12/22/20 for new onset atrial fibrillation. (2) Atrial fibrillation Assessment/Plan: Patient's metoprolol succinate was increased to 100 mg p.o. twice daily. Diltiazem CD 120 mg p.o. q. noon started today. Patient's ChadVasc score is 5 for age, sex, hypertension and vascular disease The patient's brother who is her power of window caser and he is agreeable to start the patient on anticoag Eliquis 2.5 mg p.o. twice daily initiated today. The lower dose is due to the patient's renal function Repeat 2D echocardiogram done today 12/22/20 did not show any change from the previous one done on 12/17/20 (3) UTI (urinary tract infection) Qualifiers: Urinary tract infection type: acute cystitis Hematuria presence: with hematuria Qualified Code(s): N30.01 - Acute cystitis with hematuria Assessment/Plan: Resolved Urine culture was no growth to dated Here WBC is normal at 9.3 and she is afebrile. She received antibiotics for a total of 5 days Antibiotics stopped (4) Acute exacerbation of COPD with asthma Assessment/Plan: On DuoNeb and albuterol as needed. Continue budesonide twice daily. Patient is significantly improved today. Oxygen saturation is 99% on room air. (5) Depression Assessment/Plan: On escitalopram 10 mg p.o. daily (6) GERD (gastroesophageal reflux disease) Assessment/Plan: Famotidine and 40 mg p.o. daily (7) ARF (acute renal failure) Assessment/Plan: Creatinine today was 1.9, BUN 54, eGFR 26 Lasix 20mg po bid ordered. Continue to hold losartan Will hold off on any fluids due to CHF on CXR 2 days ago - Current Meds Current Meds: Current Medications Generic Name Dose Route Start Last Admin Trade Name Freq PRN Reason Stop Dose Admin Acetaminophen 650 mg 12/17/20 13:19 12/22/20 00:45 Acetaminophen 325 Mg Tablet PO 650 mg Q4HR PRN Administration Pain 1 to 4 Albuterol/Ipratropium 3 ml 12/20/20 08:05 12/22/20 07:09 Ipratropium/Albuterol 3 Ml Neb INH 3 ml Q4HR PRN Administration Wheezing Atorvastatin Calcium 40 mg 12/20/20 21:00 12/21/20 21:50 Atorvastatin 40 Mg Tablet PO 40 mg QPM BLAS Administration Budesonide 0.5 mg 12/20/20 08:00 12/22/20 07:09 Budesonide 0.5 Mg/2 Ml Neb INH 0.5 mg RTBID BLAS Administration Carboxymethylcellulose 1 drops 12/17/20 15:39 12/21/20 11:09 Carboxymethylcellulose Ophth Drops EACHEYE 1 ea BID PRN Administration Dry Eye Clopidogrel Bisulfate 75 mg 12/18/20 09:00 12/21/20 08:27 Clopidogrel 75 Mg Tablet PO 75 mg DAILY BLAS Administration Docusate Sodium 250 - 500 mg 12/19/20 09:00 12/21/20 07:58 Docusate Sodium 250 Mg Capsule PO Not Given DAILY BLAS Enoxaparin Sodium 40 mg 12/20/20 09:00 12/21/20 08:27 Enoxaparin 40 Mg/0.4 Ml Syringe SUBQ 40 mg DAILY BLAS Administration Escitalopram Oxalate 10 mg 12/18/20 09:00 12/21/20 08:27 Escitalopram 10 Mg Tablet PO 10 mg DAILY BLAS Administration Famotidine 20 mg 12/20/20 07:00 12/22/20 06:05 Famotidine 20 Mg Tablet PO 20 mg 0700 BLAS Administration Ferrous Sulfate 325 mg 12/18/20 08:00 12/21/20 08:27 Ferrous Sulfate 325 Mg Tablet PO 325 mg DAILYWM BLAS Administration Multi-Ingredient Ointment 1 applic 12/18/20 12:19 12/22/20 06:05 Zinc Oxide 20% Oint 30 Gm Tube TOP 1 applic PRN PRN Administration Skin Care Ondansetron HCl 4 mg 12/17/20 13:19 12/21/20 10:34 Ondansetron 4 Mg/2 Ml Vial IVP 4 mg Q6HR PRN Administration Nausea / Vomiting Patient Own Med - 1 each 12/18/20 09:00 12/21/20 07:58 Olopatadine EACHEYE Not Given Ophthalmic Solution DAILY BLAS Polyethylene Glycol 17 gm 12/18/20 09:00 12/21/20 08:27 Polyethylene Glycol 3350 17 Gm Packet PO Not Given DAILY BLAS Senna 8.6 - 17.2 mg 12/19/20 09:00 12/21/20 07:59 Senna 8.6 Mg Tablet PO Not Given DAILY BLAS Sodium Chloride 10 ml 12/17/20 17:00 12/22/20 00:23 Sodium Chloride Flush 0.9% 10 Ml Syringe IVP 10 ml 0100,0900,1700 BLAS Administration - Lab Result Fish Bone Diagrams: 12/22/20 05:11 12/22/20 05:11 - Additional Planning My Orders: My Active Orders 12/22/20 08:00 Echo Transthoracic Complete [ECHO] Routine 12/23/20 05:00 BMP - BASIC METABOLIC PANEL [CHEM] DAILYLAB CBC - COMP BLD CT W/AUTO DIFF [HEME] DAILYLAB 12/24/20 05:00 BMP - BASIC METABOLIC PANEL [CHEM] DAILYLAB CBC - COMP BLD CT W/AUTO DIFF [HEME] DAILYLAB 12/25/20 05:00 BMP - BASIC METABOLIC PANEL [CHEM] DAILYLAB CBC - COMP BLD CT W/AUTO DIFF [HEME] DAILYLAB 12/26/20 05:00 BMP - BASIC METABOLIC PANEL [CHEM] DAILYLAB CBC - COMP BLD CT W/AUTO DIFF [HEME] DAILYLAB 12/27/20 05:00 BMP - BASIC METABOLIC PANEL [CHEM] DAILYLAB CBC - COMP BLD CT W/AUTO DIFF [HEME] DAILYLAB Subjective - Subjective Patient Reports: Other (Patient appeared more alert and oriented today. She also. To be resting and breathing comfortably. She was able to feed herself today. She denied any complaints at the time of my exam.) Objective Vital Signs: Vital Signs - 24 hr 12/21/20 12/21/20 12/21/20 09:01 11:36 11:39 Temperature 36.9 C Heart Rate Heart Rate [ 88 98 140 H Brachial] Respiratory 19 Rate Blood Pressure Blood Pressure [Left Brachial artery] Blood Pressure 142/50 H 109/41 L 134/57 H [Right Brachial artery] O2 Saturation 95 12/21/20 12/21/20 12/21/20 11:45 12:03 12:16 Temperature Heart Rate Heart Rate [ 100 103 H 105 H Brachial] Respiratory Rate Blood Pressure Blood Pressure [Left Brachial artery] Blood Pressure 139/66 H 116/77 121/61 [Right Brachial artery] O2 Saturation 99 12/21/20 12/21/20 12/21/20 15:07 15:08 15:15 Temperature Heart Rate Heart Rate [ 116 H 112 H Brachial] Respiratory Rate Blood Pressure 146/69 H Blood Pressure [Left Brachial artery] Blood Pressure 146/69 H 154/75 H [Right Brachial artery] O2 Saturation 12/21/20 12/21/20 12/21/20 15:30 15:44 15:54 Temperature 36.9 C Heart Rate Heart Rate [ 115 H 110 H 115 H Brachial] Respiratory 18 Rate Blood Pressure Blood Pressure [Left Brachial artery] Blood Pressure 139/104 H 160/90 H 160/90 H [Right Brachial artery] O2 Saturation 97 12/21/20 12/21/20 12/21/20 16:07 16:12 16:17 Temperature Heart Rate Heart Rate [ 100 103 H Brachial] Respiratory Rate Blood Pressure 158/96 H Blood Pressure [Left Brachial artery] Blood Pressure 159/76 H 140/58 H [Right Brachial artery] O2 Saturation 12/21/20 12/21/20 12/21/20 16:22 16:37 16:52 Temperature Heart Rate Heart Rate [ 85 95 90 Brachial] Respiratory Rate Blood Pressure Blood Pressure [Left Brachial artery] Blood Pressure 149/90 H 131/64 H 155/71 H [Right Brachial artery] O2 Saturation 12/21/20 12/21/20 12/21/20 17:08 17:15 17:20 Temperature Heart Rate Heart Rate [ 88 90 93 Brachial] Respiratory Rate Blood Pressure Blood Pressure [Left Brachial artery] Blood Pressure 163/70 H 144/83 H 134/79 H [Right Brachial artery] O2 Saturation 12/21/20 12/21/20 12/21/20 17:30 18:00 19:26 Temperature Heart Rate Heart Rate [ 100 100 105 H Brachial] Respiratory Rate Blood Pressure Blood Pressure 165/85 H [Left Brachial artery] Blood Pressure 123/67 133/74 H [Right Brachial artery] O2 Saturation 12/21/20 12/21/20 12/22/20 19:48 20:35 00:19 Temperature 36.4 C L 37 C Heart Rate 110 H Heart Rate [ 152 H 153 H Brachial] Respiratory 16 18 19 Rate Blood Pressure Blood Pressure [Left Brachial artery] Blood Pressure 156/84 H 156/74 H [Right Brachial artery] O2 Saturation 97 98 12/22/20 12/22/20 12/22/20 00:23 04:16 05:51 Temperature 36.7 C Heart Rate Heart Rate [ 105 H Brachial] Respiratory 18 Rate Blood Pressure 156/74 H 157/96 H Blood Pressure [Left Brachial artery] Blood Pressure 148/76 H [Right Brachial artery] O2 Saturation 97 12/22/20 07:15 Temperature Heart Rate 94 Heart Rate [ Brachial] Respiratory 20 Rate Blood Pressure Blood Pressure [Left Brachial artery] Blood Pressure [Right Brachial artery] O2 Saturation Oxygen O2 Source Room air Oxygen Flow Rate 2 I&O (Last 24 Hrs): Intake and Output Totals x24h 12/20/20 12/21/20 12/22/20 23:59 23:59 23:59 Intake Total 420 925 125 Output Total 1225 2200 500 Balance -805 -1275 -375 General: Alert, Oriented x3, No acute distress HEENT: PERRLA, EOMI Neck: Supple, No JVD Neuro: Alert, Non Focal, Oriented Times 3 Cardiovascular: Other (Irregularly irregular. Tachycardic) Respiratory: Chest non-tender, No respiratory distress, Breath sounds nml Abdomen: Normal bowel sounds, Soft, No tenderness Extremities: No clubbing, No cyanosis, No edema, No tenderness/swelling Skin: No rashes, No breakdown, No significant lesion - Results Results: Laboratory Results WBC 10.6 x10^3/uL (4.8-10.8) 12/22/20 05:11 RBC 3.51 10^6/uL (4.20-5.40) L 12/22/20 05:11 Hgb 10.6 g/dL (12.0-16.0) L 12/22/20 05:11 Hct 33.4 % (37.0-47.0) L 12/22/20 05:11 MCV 95.2 fL (81.0-99.0) 12/22/20 05:11 MCH 30.2 pg (27.0-31.0) 12/22/20 05:11 MCHC 31.7 g/dL (32.0-36.0) L 12/22/20 05:11 RDW 13.8 % (12.0-15.0) 12/22/20 05:11 Plt Count 173 10^3/uL (130-450) 12/22/20 05:11 MPV 11.2 fL (7.9-10.8) H 12/22/20 05:11 Neut # (Auto) 9.7 10^3/uL (1.5-6.6) H 12/22/20 05:11 Lymph # (Auto) 0.4 10^3/uL (1.5-3.5) L 12/22/20 05:11 [place] # (Auto) 0.5 10^3/uL (0.0-1.0) 12/22/20 05:11 Eos # (Auto) 0.0 10^3/uL (0.0-0.7) 12/22/20 05:11 Baso # (Auto) 0.0 10^3/uL (0.0-0.1) 12/22/20 05:11 Absolute Nucleated RBC 0.00 x10^3/uL 12/22/20 05:11 Nucleated RBC % 0.0 /100WBC 12/22/20 05:11 Bld Gas Analysis Time 1347 12/19/20 13:47 Sample Site RIGHT RADIAL 12/19/20 13:47 ABG pH 7.32 (7.35-7.45) L 12/19/20 13:47 ABG pCO2 38 mmHg (34-45) 12/19/20 13:47 ABG pO2 78 mmHg (80-100) L 12/19/20 13:47 ABG HCO3 19.2 mmol/L (22.0-26.0) L 12/19/20 13:47 ABG Total CO2 20.4 MMOL/L (21.0-29.0) L 12/19/20 13:47 ABG O2 Saturation 96 % (94-98) 12/19/20 13:47 ABG Base Excess -6.2 mmol/L (-2.0-3.0) L 12/19/20 13:47 Mykel Test POSITIVE 12/19/20 13:47 Room Air YES 12/19/20 13:47 Sodium 143 mmol/L (135-145) 12/22/20 05:11 Potassium 4.0 mmol/L (3.5-5.0) 12/22/20 05:11 Chloride 112 mmol/L (101-111) H 12/22/20 05:11 Carbon Dioxide 20 mmol/L (21-32) L 12/22/20 05:11 Anion Gap 11.0 (6-13) 12/22/20 05:11 BUN 54 mg/dL (6-20) H 12/22/20 05:11 Creatinine 1.9 mg/dL (0.4-1.0) H 12/22/20 05:11 Estimated GFR (MDRD) 26 (>89) L 12/22/20 05:11 Glucose 141 mg/dL (70-100) H 12/22/20 05:11 Lactic Acid 1.1 mmol/L (0.5-2.2) 12/18/20 05:20 Calcium 9.7 mg/dL (8.5-10.3) 12/22/20 05:11 Magnesium 1.9 mg/dL (1.7-2.8) 12/22/20 05:11 Iron 8 ug/dL (28-170) L 12/19/20 04:35 TIBC 176 ug/dL (250-450) L 12/19/20 04:35 % Saturation 5 % (20-50) L 12/19/20 04:35 Transferrin 126 mg/dL (192-382) L 12/19/20 04:35 Ferritin 463.5 ng/mL (11.0-306.8) H 12/19/20 04:35 Total Bilirubin 0.7 mg/dL (0.2-1.0) 12/17/20 09:22 AST 21 IU/L (10-42) 12/17/20 09:22 ALT 20 IU/L (10-60) 12/17/20 09:22 Alkaline Phosphatase 42 IU/L (42-121) 12/17/20 09:22 Troponin I High Sens 211.5 ng/L (2.3-14.8) H* 12/22/20 05:11 B-Natriuretic Peptide 2418 pg/mL (5-100) H 12/22/20 05:11 Total Protein 5.9 g/dL (6.7-8.2) L 12/17/20 09:22 Albumin 3.6 g/dL (3.2-5.5) 12/17/20 09:22 Globulin 2.3 g/dL (2.1-4.2) 12/17/20 09:22 Albumin/Globulin Ratio 1.6 (1.0-2.2) 12/17/20 09:22 Lipase 101 U/L (22-51) H 12/17/20 09:22 Vitamin B12 300 pg/mL (180-914) 12/19/20 04:35 Folate 22.36 ng/mL (5.90 - >24.8) 12/19/20 04:35 Urine Color YELLOW 12/17/20 12:15 Urine Clarity SL. CLOUDY (CLEAR) 12/17/20 12:15 Urine pH 6.0 PH (5.0-7.5) 12/17/20 12:15 Ur Specific [place] 1.020 (1.002-1.030) 12/17/20 12:15 Urine Protein 30 mg/dL (NEGATIVE) H 12/17/20 12:15 Urine Glucose (UA) NEGATIVE mg/dL (NEGATIVE) 12/17/20 12:15 Urine Ketones NEGATIVE mg/dL (NEGATIVE) 12/17/20 12:15 Urine Occult Blood MODERATE (NEGATIVE) H 12/17/20 12:15 Urine Nitrite NEGATIVE (NEGATIVE) 12/17/20 12:15 Urine Bilirubin NEGATIVE (NEGATIVE) 12/17/20 12:15 Urine Urobilinogen 0.2 (NORMAL) E.U./dL (NORMAL) 12/17/20 12:15 Ur Leukocyte Esterase SMALL (NEGATIVE) H 12/17/20 12:15 Urine RBC 11-25 /HPF (0-5) H 12/17/20 12:15 Urine WBC 11-25 /HPF (0-5) H 12/17/20 12:15 Ur Squamous Epith Cells FEW Squamous (<= Few) 12/17/20 12:15 Amorphous Sediment Few /LPF 12/17/20 12:15 Urine Bacteria Few /HPF (None Seen) 12/17/20 12:15 Urine Mucus Moderate Strands 12/17/20 12:15 Ur Microscopic Review INDICATED 12/17/20 12:15 Urine Culture Comments INDICATED 12/17/20 12:15 Nasal Adenovirus (PCR) NOT DETECTED 12/17/20 13:09 Nasal B. parapertussis DNA (PCR) NOT DETECTED 12/17/20 13:09 Nasal Coronavir 229E PCR NOT DETECTED 12/17/20 13:09 Nasal Coronavir HKU1 PCR NOT DETECTED 12/17/20 13:09 Nasal Coronavir NL63 PCR NOT DETECTED 12/17/20 13:09 Nasal Coronavir OC43 PCR NOT DETECTED 12/17/20 13:09 Nasal Enterovir/Rhinovir PCR NOT DETECTED 12/17/20 13:09 Nasal Influenza B PCR NOT DETECTED 12/17/20 13:09 Nasal Influenza A PCR NOT DETECTED 12/17/20 13:09 Nasal Parainfluen 1 PCR NOT DETECTED 12/17/20 13:09 Nasal Parainfluen 2 PCR NOT DETECTED 12/17/20 13:09 Nasal Parainfluen 3 PCR NOT DETECTED 12/17/20 13:09 Nasal Parainfluen 4 PCR NOT DETECTED 12/17/20 13:09 Nasal RSV (PCR) NOT DETECTED 12/17/20 13:09 Nasal B.pertussis DNA PCR NOT DETECTED 12/17/20 13:09 Nasal C.pneumoniae (PCR) NOT DETECTED 12/17/20 13:09 Ramo Human Metapneumo PCR NOT DETECTED 12/17/20 13:09 Nasal M.pneumoniae (PCR) NOT DETECTED 12/17/20 13:09 Nasal SARS-CoV-2 (PCR) NOT DETECTED 12/17/20 13:09 - Procedures Procedures: Procedures ELECTROCARDIOGRAM (12/12/12) ABX Reporting Has patient been on IV antibiotics over the past 48 hours?: No
[2020-12-22] MEDS: FERROUS SULFATE 325 MG TABLET PO SCH (08:16)
[2020-12-22] MEDS: ENOXAPARIN 40 MG/0.4 ML SYRINGE SUBQ SCH (08:41)
[2020-12-22] MEDS: CLOPIDOGREL 75 MG TABLET PO SCH (08:41)
[2020-12-22] MEDS: METOPROLOL SUCCINATE 50 MG TABLET PO SCH ×2 (08:42→20:25)
[2020-12-22] MEDS: ESCITALOPRAM 10 MG TABLET PO SCH (08:42)
[2020-12-22] MEDS: FUROSEMIDE 20 MG TABLET PO SCH ×2 (08:55→14:31)
[2020-12-22] MEDS: OLOPATADINE EACHEYE SCH (08:58)
[2020-12-22] MEDS ORDERED: METOPROLOL SUCCINATE 25 MG TABLET PO SCH (09:00)
[2020-12-22] MEDS: DOCUSATE SODIUM 250 MG CAPSULE PO SCH (10:58)
[2020-12-22] MEDS: polyethylene glycoL 3350 17 GM PACKET PO SCH (10:59)
[2020-12-22] MEDS: SENNA 8.6 MG TABLET PO SCH (10:59)
[2020-12-22] MEDS: diltiaZEM CD 120 MG CAPSULE PO SCH (12:23)
[2020-12-22] MEDS: APIXABAN 2.5 MG TABLET PO SCH (20:25)
[2020-12-22] MEDS: ATORVASTATIN 40 MG TABLET PO SCH (20:25)
[2020-12-23] MEDS: SODIUM CHLORIDE FLUSH 0.9% 10 ML SYRINGE IVP SCH ×3 (00:15→16:37)
[2020-12-23 05:07] LABS: BASOPHILS % (AUTO) 0.1 %; HCT - HEMATOCRIT 35.2 % (37.0-47.0); HGB - HEMOGLOBIN 11.1 g/dL (12.0-16.0); LYMPHOCYTES # (AUTO) 0.8 10^3/uL (1.5-3.5); LYMPHOCYTES % (AUTO) 7.4 %; MEAN CORPUSCULAR HEMOGLOBIN 30.4 pg (27.0-31.0); MEAN CORPUSCULAR HGB CONC 31.5 g/dL (32.0-36.0); MEAN CORPUSCULAR VOLUME 96.4 fL (81.0-99.0); MEAN PLATELET VOLUME 11.2 fL (7.9-10.8); MONOCYTES # (AUTO) 0.9 10^3/uL (0.0-1.0); MONOCYTES % (AUTO) 8.9 %; NEUTROPHILS # (AUTO) 8.5 10^3/uL (1.5-6.6); NEUTROPHILS % (AUTO) 82.9 %; PLT - PLATELET COUNT 189 10^3/uL (130-450); RED BLOOD COUNT 3.65 10^6/uL (4.20-5.40); RED CELL DISTRIBUTION WIDTH 13.5 % (12.0-15.0); WHITE BLOOD COUNT 10.3 x10^3/uL (4.8-10.8)
[2020-12-23 05:18] LABS: CALCIUM 9.7 mg/dL (8.5-10.3); CREATININE 1.8 mg/dL (0.4-1.0); POTASSIUM 3.8 mmol/L (3.5-5.0)
[2020-12-23] MEDS: ZINC OXIDE 20% OINT 30 GM TUBE TOP PRN ×2 (06:13→09:52)
[2020-12-23] MEDS: FAMOTIDINE 20 MG TABLET PO SCH (06:13)
[2020-12-23] MEDS: FUROSEMIDE 20 MG TABLET PO SCH ×2 (06:14→14:24)
[2020-12-23] MEDS: IPRATROPIUM/ALBUTEROL 3 ML NEB INH PRN ×2 (07:41→17:48)
[2020-12-23] MEDS: BUDESONIDE 0.5 MG/2 ML NEB INH SCH ×2 (07:41→17:48)
[2020-12-23] MEDS: FERROUS SULFATE 325 MG TABLET PO SCH (08:05)
[2020-12-23] MEDS: polyethylene glycoL 3350 17 GM PACKET PO SCH (09:25)
[2020-12-23] MEDS: DOCUSATE SODIUM 250 MG CAPSULE PO SCH (09:25)
[2020-12-23] MEDS: CLOPIDOGREL 75 MG TABLET PO SCH (09:26)
[2020-12-23] MEDS: SENNA 8.6 MG TABLET PO SCH (09:26)
[2020-12-23] MEDS: ESCITALOPRAM 10 MG TABLET PO SCH (09:26)
[2020-12-23] MEDS: APIXABAN 2.5 MG TABLET PO SCH ×2 (09:26→20:18)
[2020-12-23] MEDS: METOPROLOL SUCCINATE 50 MG TABLET PO SCH ×2 (09:26→20:18)
[2020-12-23] MEDS: ACETAMINOPHEN 325 MG TABLET PO PRN (09:45)
[2020-12-23] MEDS: OLOPATADINE EACHEYE SCH (11:01)
[2020-12-23] MEDS: CARBOXYMETHYLCELLULOSE OPHTH DROPS EACHEYE PRN ×2 (12:23→20:18)
[2020-12-23] MEDS: diltiaZEM CD 120 MG CAPSULE PO SCH (12:23)
--- NOTE | 2020-12-23 14:20 | PROVIDER PROGRESS NOTE ---
Subjective - Prog Note Date Prog Note Date: 12/23/20 - Subjective Subjective: She denies any chest pain or difficulty breathing. She is able to get up out of bed and work with physical therapy. She is requesting her eyedrops this morning. She was able to get some of her breakfast. Current Medications - Current Medications Current Medications: Active Medications Acetaminophen (Acetaminophen 325 Mg Tablet) 650 mg PO Q4HR PRN PRN Reason: Pain 1 to 4 Last Admin: 12/23/20 09:45 Dose: 650 mg Documented by: Albuterol (Albuterol Neb 2.5 Mg/3 Ml) 2.5 mg INH Q3H PRN PRN Reason: Wheezing Albuterol/Ipratropium (Ipratropium/Albuterol 3 Ml Neb) 3 ml INH Q4HR PRN PRN Reason: Wheezing Last Admin: 12/23/20 07:41 Dose: 3 ml Documented by: Apixaban (Apixaban 2.5 Mg Tablet) 2.5 mg PO BID [facility] Last Admin: 12/23/20 09:26 Dose: 2.5 mg Documented by: Atorvastatin Calcium (Atorvastatin 40 Mg Tablet) 40 mg PO QPM [facility] Last Admin: 12/22/20 20:25 Dose: 40 mg Documented by: Budesonide (Budesonide 0.5 Mg/2 Ml Neb) 0.5 mg INH RTBID [facility] Last Admin: 12/23/20 07:41 Dose: 0.5 mg Documented by: Carboxymethylcellulose (Carboxymethylcellulose Ophth Drops) 1 drops EACHEYE BID PRN PRN Reason: Dry Eye Last Admin: 12/23/20 12:23 Dose: 1 ea Documented by: Clopidogrel Bisulfate (Clopidogrel 75 Mg Tablet) 75 mg PO DAILY [facility] Last Admin: 12/23/20 09:26 Dose: 75 mg Documented by: Diltiazem HCl (Diltiazem Cd 120 Mg Capsule) 120 mg PO 1200 [facility] Last Admin: 12/23/20 12:23 Dose: 120 mg Documented by: Docusate Sodium (Docusate Sodium 250 Mg Capsule) 250 - 500 mg PO DAILY [facility] Last Admin: 12/23/20 09:25 Dose: 250 mg Documented by: Escitalopram Oxalate (Escitalopram 10 Mg Tablet) 10 mg PO DAILY [facility] Last Admin: 12/23/20 09:26 Dose: 10 mg Documented by: Famotidine (Famotidine 20 Mg Tablet) 20 mg PO 0700 [facility] Last Admin: 12/23/20 06:13 Dose: 20 mg Documented by: Ferrous Sulfate (Ferrous Sulfate 325 Mg Tablet) 325 mg PO DAILYWM [facility] Last Admin: 12/23/20 08:05 Dose: 325 mg Documented by: Furosemide (Furosemide 20 Mg Tablet) 20 mg PO BIDDIURETIC [facility] Last Admin: 12/23/20 06:14 Dose: 20 mg Documented by: Metoprolol Succinate (Metoprolol Succinate 50 Mg Tablet) 100 mg PO BID [facility] Last Admin: 12/23/20 09:26 Dose: 100 mg Documented by: Mineral Oil (Min Oil/Dimethicon/Coconut Oil 92 Gm Tube) 1 applic TOP PRN PRN PRN Reason: Skin Care Multi-Ingredient Ointment (Zinc Oxide 20% Oint 30 Gm Tube) 1 applic TOP PRN PRN PRN Reason: Skin Care Last Admin: 12/23/20 09:52 Dose: 1 applic Documented by: Ondansetron HCl (Ondansetron 4 Mg/2 Ml Vial) 4 mg IVP Q6HR PRN PRN Reason: Nausea / Vomiting Last Admin: 12/21/20 10:34 Dose: 4 mg Documented by: Patient Own Med - Olopatadine Ophthalmic Solution 1 each EACHEYE DAILY [facility] Last Admin: 12/23/20 11:01 Dose: Not Given Documented by: Polyethylene Glycol (Polyethylene Glycol 3350 17 Gm Packet) 17 gm PO DAILY [facility] Last Admin: 12/23/20 09:25 Dose: 17 gm Documented by: Senna (Senna 8.6 Mg Tablet) 8.6 - 17.2 mg PO DAILY [facility] Last Admin: 12/23/20 09:26 Dose: 8.6 mg Documented by: Sodium Chloride (Sodium Chloride Flush 0.9% 10 Ml Syringe) 10 ml IVP PRN PRN PRN Reason: NEEDED PER PROVIDER ORDERS Sodium Chloride (Sodium Chloride Flush 0.9% 10 Ml Syringe) 10 ml IVP 0100,0 900,1700 [facility] Last Admin: 12/23/20 09:29 Dose: 10 ml Documented by: Clopidogrel [Plavix] 75 mg PO DAILY 12/12/12 Escitalopram [Lexapro] 10 mg PO DAILY 12/12/12 Furosemide 20 mg PO DAILY 12/12/12 Lovastatin 40 mg PO DAILY 12/12/12 Losartan [Cozaar] 100 mg PO QPM 08/17/16 guaiFENesin [Guaifenesin] 200 mg PO Q6H PRN 08/17/16 Acetaminophen 650 mg PO Q6H PRN 08/02/17 Albuterol Sulf [Ventolin Hfa Inhaler] 2 puffs INH Q3H PRN 08/02/17 Budesonide [Pulmicort Flexhaler] 2 puffs INH BID 08/02/17 Polyvinyl Alcohol [Artificial Tears] 1 drops EACHEYE BID 08/02/17 Yeoen-D-Lmahluhqzqucy [Beanaid] 150 unit PO DAILY 06/25/20 Famotidine [Pepcid] 20 mg DAILY 06/25/20 Ferrous Sulfate 325 mg PO DAILY 06/25/20 Fluticasone [Flonase] 1 sprays MATT BID 06/25/20 Loperamide HCl [Imodium A-D] 2 mg PO DAILY PRN 06/25/20 Loratadine [Allergy Relief] 10 mg PO DAILY 06/25/20 predniSONE [Deltasone] 2.5 mg PO DAILY 06/25/20 Olopatadine HCl [Pataday Once Daily Relief] 2.5 ml OP DAILY 12/17/20 Sulfamethox/Trimeth 800/160 [Bactrim Ds] 1 tab BID 12/17/20 Objective - Vital Signs/Intake & Output Reviewed Vital Signs: Yes Vital Signs: Vital Signs x48h Temp Pulse Pulse Resp BP BP Pulse Ox 12/23/20 13:00 36.5 C 85 17 135/71 H 98 12/23/20 09:30 138/67 H 12/23/20 08:01 36.5 C 78 18 139/90 H 97 12/23/20 07:45 79 14 Intake & Output: Intake & Output 12/20/20 12/21/20 12/22/20 12/23/20 23:59 23:59 23:59 23:59 Intake Total 420 575 745 595 Output Total 0595 2348 9729 1789 Balance -957 -1065 -2320 -2725 - Objective General Appearance: positive: No acute distress, Alert Eyes Bilateral: positive: Conjunctivae nml ENT: positive: ENT inspection nml Neck: positive: Nml inspection Respiratory: positive: No respiratory distress, Wheezes. negative: Rales, Rhonchi Cardiovascular: positive: Irregularly irregular. negative: Tachycardia, Systolic murmur Abdomen: positive: Non-tender, No distention. negative: Tenderness Skin: positive: Warm, Dry Extremities: positive: No pedal edema Neurologic/Psychiatric: negative: Disoriented to person, Disoriented to place - Lab Results Fish Bones: 12/23/20 04:30 12/23/20 04:30 Other Labs: Lab Results x24hrs 12/23/20 12/23/20 Range/Units 04:30 04:30 WBC 10.3 (4.8-10.8) x10^3/uL RBC 3.65 L (4.20-5.40) 10^6/uL Hgb 11.1 L (12.0-16.0) g/dL Hct 35.2 L (37.0-47.0) % MCV 96.4 (81.0-99.0) fL MCH 30.4 (27.0-31.0) pg MCHC 31.5 L (32.0-36.0) g/dL RDW 13.5 (12.0-15.0) % Plt Count 189 (130-450) 10^3/uL MPV 11.2 H (7.9-10.8) fL Neut # (Auto) 8.5 H (1.5-6.6) 10^3/uL Lymph # (Auto) 0.8 L (1.5-3.5) 10^3/uL [place] # (Auto) 0.9 (0.0-1.0) 10^3/uL Eos # (Auto) 0.0 (0.0-0.7) 10^3/uL Baso # (Auto) 0.0 (0.0-0.1) 10^3/uL Absolute Nucleated RBC 0.00 x10^3/uL Nucleated RBC % 0.0 /100WBC Sodium 144 (135-145) mmol/L Potassium 3.8 (3.5-5.0) mmol/L Chloride 110 (101-111) mmol/L Carbon Dioxide 24 (21-32) mmol/L Anion Gap 10.0 (6-13) BUN 59 H (6-20) mg/dL Creatinine 1.8 H (0.4-1.0) mg/dL Estimated GFR (MDRD) 27 L (>89) Glucose 113 H (70-100) mg/dL Calcium 9.7 (8.5-10.3) mg/dL ABX Reporting Has patient been on IV antibiotics over the past 48 hours?: No Assessment/Plan - Problem List (1) Acute diastolic heart failure Impression: She has no dyspnea at rest but it is still present with exertion. Her BNP is greater than 2400 yesterday. Repeat echo today showed a preserved ejection fraction. Her x-ray does reveal some pulmonary vascular congestion is appears to be diastolic heart failure. She has been on oral Lasix given her renal function. Today she appears relatively euvolemic and does have some improvement. We will keep her on oral Lasix and recheck a BMP in the morning and monitor her renal function. If she develops any dyspnea with exertion then she will need to be diuresed with IV Lasix. (2) ARF (acute renal failure) Impression: Her renal function is improved today with a creatinine of 1.8. This may be re lated to her heart failure. We will continue the oral Lasix and continue to hold her home losartan. We will recheck a BMP in the morning. If her renal function has not improved we will repeat a urinalysis and urine sodium and urea. (3) Acute exacerbation of COPD with asthma Impression: This is also contributing to her dyspnea with exertion. We will continue with duo nebs on a clock and albuterol as needed. We will hold off on steroids given her clinical improvement. (4) NSTEMI (non-ST elevated myocardial infarction) Impression: This was medically managed. She remains on metoprolol, atorvastatin, Plavix. She will need outpatient follow-up with cardiology to discuss potential outpatient angiogram but at this time, the patient preferred conservative management only. (5) Atrial fibrillation Impression: She remains rate controlled on metoprolol and diltiazem. She is also on Eliquis for anticoagulation. (6) UTI (urinary tract infection) Impression: Her urine culture had no growth and she completed her course of IV antibiotics. Qualifiers: Urinary tract infection type: acute cystitis Hematuria presence: with hematuria Qualified Code(s): N30.01 - Acute cystitis with hematuria
[2020-12-23] MEDS: ATORVASTATIN 40 MG TABLET PO SCH (20:18)
[2020-12-24] MEDS: SODIUM CHLORIDE FLUSH 0.9% 10 ML SYRINGE IVP SCH ×3 (00:21→16:36)
[2020-12-24] MEDS: ZINC OXIDE 20% OINT 30 GM TUBE TOP PRN (00:25)
[2020-12-24 05:07] LABS: BASOPHILS % (AUTO) 0.1 %; EOSINOPHILS # (AUTO) 0.3 10^3/uL (0.0-0.7); EOSINOPHILS % (AUTO) 2.4 %; HCT - HEMATOCRIT 38.7 % (37.0-47.0); HGB - HEMOGLOBIN 12.1 g/dL (12.0-16.0); LYMPHOCYTES # (AUTO) 1.5 10^3/uL (1.5-3.5); LYMPHOCYTES % (AUTO) 13.4 %; MEAN CORPUSCULAR HGB CONC 31.3 g/dL (32.0-36.0); MEAN CORPUSCULAR VOLUME 95.8 fL (81.0-99.0); MEAN PLATELET VOLUME 10.9 fL (7.9-10.8); MONOCYTES # (AUTO) 0.9 10^3/uL (0.0-1.0); NEUTROPHILS # (AUTO) 8.5 10^3/uL (1.5-6.6); NEUTROPHILS % (AUTO) 74.4 %; PLT - PLATELET COUNT 222 10^3/uL (130-450); RED BLOOD COUNT 4.04 10^6/uL (4.20-5.40); RED CELL DISTRIBUTION WIDTH 13.3 % (12.0-15.0); WHITE BLOOD COUNT 11.5 x10^3/uL (4.8-10.8)
[2020-12-24 05:15] LABS: CALCIUM 9.7 mg/dL (8.5-10.3); CREATININE 1.5 mg/dL (0.4-1.0); POTASSIUM 3.8 mmol/L (3.5-5.0)
[2020-12-24] MEDS: FAMOTIDINE 20 MG TABLET PO SCH (05:50)
[2020-12-24] MEDS: FUROSEMIDE 20 MG TABLET PO SCH ×2 (05:50→13:21)
[2020-12-24] MEDS: BUDESONIDE 0.5 MG/2 ML NEB INH SCH ×2 (08:06→19:28)
[2020-12-24] MEDS: IPRATROPIUM/ALBUTEROL 3 ML NEB INH PRN ×2 (08:06→19:28)
[2020-12-24] MEDS: ESCITALOPRAM 10 MG TABLET PO SCH (09:28)
[2020-12-24] MEDS: DOCUSATE SODIUM 250 MG CAPSULE PO SCH (09:29)
[2020-12-24] MEDS: predniSONE 5 MG TABLET PO SCH (09:29)
[2020-12-24] MEDS: FERROUS SULFATE 325 MG TABLET PO SCH (09:29)
[2020-12-24] MEDS: SENNA 8.6 MG TABLET PO SCH (09:29)
[2020-12-24] MEDS: METOPROLOL SUCCINATE 50 MG TABLET PO SCH ×2 (09:29→21:33)
[2020-12-24] MEDS: CLOPIDOGREL 75 MG TABLET PO SCH (09:29)
[2020-12-24] MEDS: APIXABAN 2.5 MG TABLET PO SCH ×2 (09:29→21:33)
[2020-12-24] MEDS: polyethylene glycoL 3350 17 GM PACKET PO SCH (09:29)
[2020-12-24] MEDS: OLOPATADINE EACHEYE SCH (10:30)
--- NOTE | 2020-12-24 12:07 | PROVIDER PROGRESS NOTE ---
Subjective - Prog Note Date Prog Note Date: 12/24/20 - Subjective Subjective: She was able to work with physical therapy today. She continues to complain of some mild discomfort. Denies chest pain. Nursing reports she has been quite fatigued most the day and sleeping quite a bit. Current Medications - Current Medications Current Medications: Active Medications Acetaminophen (Acetaminophen 325 Mg Tablet) 650 mg PO Q4HR PRN PRN Reason: Pain 1 to 4 Last Admin: 12/23/20 09:45 Dose: 650 mg Documented by: Albuterol (Albuterol Neb 2.5 Mg/3 Ml) 2.5 mg INH Q3H PRN PRN Reason: Wheezing Albuterol/Ipratropium (Ipratropium/Albuterol 3 Ml Neb) 3 ml INH Q4HR PRN PRN Reason: Wheezing Last Admin: 12/24/20 08:06 Dose: 3 ml Documented by: Apixaban (Apixaban 2.5 Mg Tablet) 2.5 mg PO BID [facility] Last Admin: 12/24/20 09:29 Dose: 2.5 mg Documented by: Atorvastatin Calcium (Atorvastatin 40 Mg Tablet) 40 mg PO QPM [facility] Last Admin: 12/23/20 20:18 Dose: 40 mg Documented by: Budesonide (Budesonide 0.5 Mg/2 Ml Neb) 0.5 mg INH RTBID [facility] Last Admin: 12/24/20 08:06 Dose: 0.5 mg Documented by: Carboxymethylcellulose (Carboxymethylcellulose Ophth Drops) 1 drops EACHEYE BID PRN PRN Reason: Dry Eye Last Admin: 12/23/20 20:18 Dose: 1 ea Documented by: Clopidogrel Bisulfate (Clopidogrel 75 Mg Tablet) 75 mg PO DAILY [facility] Last Admin: 12/24/20 09:29 Dose: 75 mg Documented by: Diltiazem HCl (Diltiazem Cd 120 Mg Capsule) 120 mg PO 1200 [facility] Last Admin: 12/24/20 13:21 Dose: 120 mg Documented by: Docusate Sodium (Docusate Sodium 250 Mg Capsule) 250 - 500 mg PO DAILY [facility] Last Admin: 12/24/20 09:29 Dose: 250 mg Documented by: Escitalopram Oxalate (Escitalopram 10 Mg Tablet) 10 mg PO DAILY [facility] Last Admin: 12/24/20 09:28 Dose: 10 mg Documented by: Famotidine (Famotidine 20 Mg Tablet) 20 mg PO 0700 [facility] Last Admin: 12/24/20 05:50 Dose: 20 mg Documented by: Ferrous Sulfate (Ferrous Sulfate 325 Mg Tablet) 325 mg PO DAILYWM [facility] Last Admin: 12/24/20 09:29 Dose: 325 mg Documented by: Furosemide (Furosemide 20 Mg Tablet) 20 mg PO DAILY [facility] Metoprolol Succinate (Metoprolol Succinate 50 Mg Tablet) 100 mg PO BID [facility] Last Admin: 12/24/20 09:29 Dose: 100 mg Documented by: Mineral Oil (Min Oil/Dimethicon/Coconut Oil 92 Gm Tube) 1 applic TOP PRN PRN PRN Reason: Skin Care Multi-Ingredient Ointment (Zinc Oxide 20% Oint 30 Gm Tube) 1 applic TOP PRN PRN PRN Reason: Skin Care Last Admin: 12/24/20 00:25 Dose: 1 applic Documented by: Ondansetron HCl (Ondansetron 4 Mg/2 Ml Vial) 4 mg IVP Q6HR PRN PRN Reason: Nausea / Vomiting Last Admin: 12/21/20 10:34 Dose: 4 mg Documented by: Patient Own Med - Olopatadine Ophthalmic Solution 1 each EACHEYE DAILY [facility] Last Admin: 12/24/20 10:30 Dose: Not Given Documented by: Polyethylene Glycol (Polyethylene Glycol 3350 17 Gm Packet) 17 gm PO DAILY [facility] Last Admin: 12/24/20 09:29 Dose: 17 gm Documented by: Prednisone (Prednisone 5 Mg Tablet) 2.5 mg PO DAILY [facility] Last Admin: 12/24/20 09:29 Dose: 2.5 mg Documented by: Senna (Senna 8.6 Mg Tablet) 8.6 - 17.2 mg PO DAILY [facility] Last Admin: 12/24/20 09:29 Dose: 8.6 mg Documented by: Sodium Chloride (Sodium Chloride Flush 0.9% 10 Ml Syringe) 10 ml IVP PRN PRN PRN Reason: NEEDED PER PROVIDER ORDERS Sodium Chloride (Sodium Chloride Flush 0.9% 10 Ml Syringe) 10 ml IVP 0100,0900,1700 [facility] Last Admin: 12/24/20 16:36 Dose: 10 ml Documented by: Clopidogrel [Plavix] 75 mg PO DAILY 12/12/12 Escitalopram [Lexapro] 10 mg PO DAILY 12/12/12 Furosemide 20 mg PO DAILY 12/12/12 Lovastatin 40 mg PO DAILY 12/12/12 Losartan [Cozaar] 100 mg PO QPM 08/17/16 guaiFENesin [Guaifenesin] 200 mg PO Q6H PRN 08/17/16 Acetaminophen 650 mg PO Q6H PRN 08/02/17 Albuterol Sulf [Ventolin Hfa Inhaler] 2 puffs INH Q3H PRN 08/02/17 Budesonide [Pulmicort Flexhaler] 2 puffs INH BID 08/02/17 Polyvinyl Alcohol [Artificial Tears] 1 drops EACHEYE BID 08/02/17 Yyxaj-H-Ejwgehqzipqno [Beanaid] 150 unit PO DAILY 06/25/20 Famotidine [Pepcid] 20 mg DAILY 06/25/20 Ferrous Sulfate 325 mg PO DAILY 06/25/20 Fluticasone [Flonase] 1 sprays MATT BID 06/25/20 Loperamide HCl [Imodium A-D] 2 mg PO DAILY PRN 06/25/20 Loratadine [Allergy Relief] 10 mg PO DAILY 06/25/20 predniSONE [Deltasone] 2.5 mg PO DAILY 06/25/20 Olopatadine HCl [Pataday Once Daily Relief] 2.5 ml OP DAILY 12/17/20 Sulfamethox/Trimeth 800/160 [Bactrim Ds] 1 tab BID 12/17/20 Objective - Vital Signs/Intake & Output Reviewed Vital Signs: Yes Vital Signs: Vital Signs x48h Temp Pulse Pulse Resp BP BP Pulse Ox 12/24/20 11:31 36.8 C 103 H 18 141/87 H 93 12/24/20 09:30 102 H 138/95 H 12/24/20 08:21 36.8 C 71 16 149/79 H 97 12/24/20 08:07 85 16 12/24/20 04:14 36.8 C 90 16 158/93 H 95 Intake & Output: Intake & Output 12/21/20 12/22/20 12/23/20 12/24/20 23:59 23:59 23:59 23:59 Intake Total 925 895 695 350 Output Total 2209 7528 4355 1256 Balance -3979 -5209 -1935 -900 - Objective General Appearance: positive: Other (She appears comfortable sitting in bed. Does appear fatigued and somewhat lethargic.) Eyes Bilateral: positive: PERRL, Conjunctivae nml ENT: positive: ENT inspection nml Neck: positive: Nml inspection Respiratory: positive: No respiratory distress, Wheezes (Faint expiratory wheezing.) Cardiovascular: positive: Irregularly irregular. negative: Tachycardia, Systolic murmur Abdomen: positive: Non-tender, No distention. negative: Tenderness Skin: positive: Warm, Dry Extremities: positive: No pedal edema Neurologic/Psychiatric: positive: Other (Able to move all 4 extremities. No obvious focal deficits. She does have a contraction of left hand.) - Lab Results Fish Bones: 12/24/20 04:40 12/24/20 04:40 Other Labs: Lab Results x24hrs 12/24/20 12/24/20 12/24/20 Range/Units 04:40 04:40 04:40 WBC 11.5 H (4.8-10.8) x10^3/uL RBC 4.04 L (4.20-5.40) 10^6/uL Hgb 12.1 (12.0-16.0) g/dL Hct 38.7 (37.0-47.0) % MCV 95.8 (81.0-99.0) fL MCH 30.0 (27.0-31.0) pg MCHC 31.3 L (32.0-36.0) g/dL RDW 13.3 (12.0-15.0) % Plt Count 222 (130-450) 10^3/uL MPV 10.9 H (7.9-10.8) fL Neut # (Auto) 8.5 H (1.5-6.6) 10^3/uL Lymph # (Auto) 1.5 (1.5-3.5) 10^3/uL [place] # (Auto) 0.9 (0.0-1.0) 10^3/uL Eos # (Auto) 0.3 (0.0-0.7) 10^3/uL Baso # (Auto) 0.0 (0.0-0.1) 10^3/uL Absolute Nucleated RBC 0.00 x10^3/uL Nucleated RBC % 0.0 /100WBC Sodium 144 (135-145) mmol/L Potassium 3.8 (3.5-5.0) mmol/L Chloride 105 (101-111) mmol/L Carbon Dioxide 29 (21-32) mmol/L Anion Gap 10.0 (6-13) BUN 53 H (6-20) mg/dL Creatinine 1.5 H (0.4-1.0) mg/dL Estimated GFR (MDRD) 33 L (>89) Glucose 94 (70-100) mg/dL Calcium 9.7 (8.5-10.3) mg/dL B-Natriuretic Peptide 1256 H (5-100) pg/mL Coronavirus (PCR) 12/23/20 Range/Units 16:34 WBC (4.8-10.8) x10^3/uL RBC (4.20-5.40) 10^6/uL Hgb (12.0-16.0) g/dL Hct (37.0-47.0) % MCV (81.0-99.0) fL MCH (27.0-31.0) pg MCHC (32.0-36.0) g/dL RDW (12.0-15.0) % Plt Count (130-450) 10^3/uL MPV (7.9-10.8) fL Neut # (Auto) (1.5-6.6) 10^3/uL Lymph # (Auto) (1.5-3.5) 10^3/uL [place] # (Auto) (0.0-1.0) 10^3/uL Eos # (Auto) (0.0-0.7) 10^3/uL Baso # (Auto) (0.0-0.1) 10^3/uL Absolute Nucleated RBC x10^3/uL Nucleated RBC % /100WBC Sodium (135-145) mmol/L Potassium (3.5-5.0) mmol/L Chloride (101-111) mmol/L Carbon Dioxide (21-32) mmol/L Anion Gap (6-13) BUN (6-20) mg/dL Creatinine (0.4-1.0) mg/dL Estimated GFR (MDRD) (>89) Glucose (70-100) mg/dL Calcium (8.5-10.3) mg/dL B-Natriuretic Peptide (5-100) pg/mL Coronavirus (PCR) NEGATIVE ABX Reporting Has patient been on IV antibiotics over the past 48 hours?: No Assessment/Plan - Problem List (1) Hypotension Impression: She was noted to be hypotensive today when she got up out of bed to work with physical therapy. Her systolic dropped to the 70s and once she returned to bed, this improved back to the 140s. The obvious concern is for orthostasis given she has been diuresed. Clinically she appears close to euvolemia. Her BNP is decreased and she has no lower extremity edema. We will cut back on her Lasix dose today. We will check orthostatics with every shift and will consider decreasing her metoprolol and further diuresis if need be although I would be concerned with discontinuing the metoprolol completely given her atrial fibrillation. (2) Acute diastolic heart failure Impression: She appears to be improved from a heart failure standpoint. Her BNP is decreased and she appears close to euvolemia. She is not hypoxic and did not desaturate with activity. Her repeat echocardiogram yesterday showed a preserved ejection fraction. We will cut back on her Lasix dose given the hypotension with activity today. (3) ARF (acute renal failure) Impression: This is improving and was likely secondary to her heart failure. Her creatinine is down to 1.5 today. We will continue to hold her home losartan. We will cut back on her oral Lasix given the hypotension. Continue to monitor her renal function and urine output. (4) Acute exacerbation of COPD with asthma Impression: This is also improved. She now only has minimal wheezing on exam. We will continue with duo nebs and albuterol as needed. We did not use steroids given this was a mild exacerbation. (5) NSTEMI (non-ST elevated myocardial infarction) Impression: She was treated for NSTEMI during this hospitalization. She had decided to have medical management alone without any cardiac intervention. She remains on Eliquis given the atrial relation and Plavix. Continue with beta-slim, statin. She will need outpatient follow-up with cardiology. (6) Atrial fibrillation Impression: She is rate controlled on her current dose of metoprolol. We will continue Eliquis for anticoagulation. (7) UTI (urinary tract infection) Impression: Urine culture had no growth but she did complete 5 days of antibiotic therapy during this hospitalization. Qualifiers: Urinary tract infection type: acute cystitis Hematuria presence: with hematuria Qualified Code(s): N30.01 - Acute cystitis with hematuria
[2020-12-24] MEDS: diltiaZEM CD 120 MG CAPSULE PO SCH (13:21)
[2020-12-24] MEDS: ATORVASTATIN 40 MG TABLET PO SCH (21:33)
[2020-12-25] MEDS: SODIUM CHLORIDE FLUSH 0.9% 10 ML SYRINGE IVP SCH ×3 (00:05→16:47)
[2020-12-25] MEDS: ZINC OXIDE 20% OINT 30 GM TUBE TOP PRN ×2 (00:11→05:46)
[2020-12-25 05:08] LABS: BASOPHILS % (AUTO) 0.2 %; EOSINOPHILS # (AUTO) 0.6 10^3/uL (0.0-0.7); EOSINOPHILS % (AUTO) 3.9 %; HCT - HEMATOCRIT 41.9 % (37.0-47.0); HGB - HEMOGLOBIN 13.2 g/dL (12.0-16.0); LYMPHOCYTES % (AUTO) 13.6 %; MEAN CORPUSCULAR HEMOGLOBIN 30.1 pg (27.0-31.0); MEAN CORPUSCULAR HGB CONC 31.5 g/dL (32.0-36.0); MEAN CORPUSCULAR VOLUME 95.4 fL (81.0-99.0); MONOCYTES # (AUTO) 1.1 10^3/uL (0.0-1.0); MONOCYTES % (AUTO) 7.3 %; NEUTROPHILS # (AUTO) 10.5 10^3/uL (1.5-6.6); NEUTROPHILS % (AUTO) 72.7 %; PLT - PLATELET COUNT 248 10^3/uL (130-450); RED BLOOD COUNT 4.39 10^6/uL (4.20-5.40); RED CELL DISTRIBUTION WIDTH 13.2 % (12.0-15.0); WHITE BLOOD COUNT 14.5 x10^3/uL (4.8-10.8)
[2020-12-25 05:18] LABS: CALCIUM 9.4 mg/dL (8.5-10.3); CREATININE 1.4 mg/dL (0.4-1.0); POTASSIUM 3.6 mmol/L (3.5-5.0)
[2020-12-25] MEDS: FAMOTIDINE 20 MG TABLET PO SCH (05:46)
[2020-12-25] MEDS: BUDESONIDE 0.5 MG/2 ML NEB INH SCH ×2 (07:31→19:58)
[2020-12-25] MEDS: IPRATROPIUM/ALBUTEROL 3 ML NEB INH PRN (07:31)
[2020-12-25] MEDS: ESCITALOPRAM 10 MG TABLET PO SCH (09:00)
[2020-12-25] MEDS ORDERED: FUROSEMIDE 20 MG TABLET PO SCH (09:00)
[2020-12-25] MEDS: CLOPIDOGREL 75 MG TABLET PO SCH (09:00)
[2020-12-25] MEDS: APIXABAN 2.5 MG TABLET PO SCH ×2 (09:01→20:29)
[2020-12-25] MEDS: SENNA 8.6 MG TABLET PO SCH (09:01)
[2020-12-25] MEDS: predniSONE 5 MG TABLET PO SCH (09:01)
[2020-12-25] MEDS: FERROUS SULFATE 325 MG TABLET PO SCH (09:01)
[2020-12-25] MEDS: METOPROLOL SUCCINATE 50 MG TABLET PO SCH ×2 (09:01→20:28)
[2020-12-25] MEDS: OLOPATADINE EACHEYE SCH (09:01)
[2020-12-25] MEDS: DOCUSATE SODIUM 250 MG CAPSULE PO SCH (09:02)
[2020-12-25] MEDS: polyethylene glycoL 3350 17 GM PACKET PO SCH (09:02)
--- NOTE | 2020-12-25 09:28 | XRAY Report ---
PROCEDURE: Chest 1 View X-Ray INDICATIONS: Dyspnea. CHF. TECHNIQUE: One view of the chest was acquired. COMPARISON: Chest 2 views 12/19/2020 FINDINGS: Surgical changes and devices: None. Lungs and pleura: No pleural effusions or pneumothorax. Lungs are mildly edematous. Mediastinum: Mediastinal contours appear normal. Heart size is at the upper limits of normal. Bones and chest wall: No suspicious bony lesions. Overlying soft tissues appear unremarkable. IMPRESSION: Mild CHF pattern. No pneumonia found. Reviewed by: Ronnie Dinero MD on 12/25/2020 9:26 AM PDT Approved by: Ronnie Dinero MD on 12/25/2020 9:26 AM PDT Station ID: [id number]
--- NOTE | 2020-12-25 12:58 | PROVIDER PROGRESS NOTE ---
Subjective - Prog Note Date Prog Note Date: 12/25/20 - Subjective Subjective: She was out of bed this morning and able to eat breakfast. She denies chest pain or difficulty breathing. At times she complains of right upper quadrant abdominal pain but then she will deny this later. Current Medications - Current Medications Current Medications: Active Medications Acetaminophen (Acetaminophen 325 Mg Tablet) 650 mg PO Q4HR PRN PRN Reason: Pain 1 to 4 Last Admin: 12/23/20 09:45 Dose: 650 mg Documented by: Albuterol (Albuterol Neb 2.5 Mg/3 Ml) 2.5 mg INH Q3H PRN PRN Reason: Wheezing Albuterol/Ipratropium (Ipratropium/Albuterol 3 Ml Neb) 3 ml INH Q4HR PRN PRN Reason: Wheezing Last Admin: 12/25/20 07:31 Dose: 3 ml Documented by: Apixaban (Apixaban 2.5 Mg Tablet) 2.5 mg PO BID [facility] Last Admin: 12/25/20 09:01 Dose: 2.5 mg Documented by: Atorvastatin Calcium (Atorvastatin 40 Mg Tablet) 40 mg PO QPM [facility] Last Admin: 12/24/20 21:33 Dose: 40 mg Documented by: Budesonide (Budesonide 0.5 Mg/2 Ml Neb) 0.5 mg INH RTBID [facility] Last Admin: 12/25/20 07:31 Dose: 0.5 mg Documented by: Carboxymethylcellulose (Carboxymethylcellulose Ophth Drops) 1 drops EACHEYE BID PRN PRN Reason: Dry Eye Last Admin: 12/23/20 20:18 Dose: 1 ea Documented by: Clopidogrel Bisulfate (Clopidogrel 75 Mg Tablet) 75 mg PO DAILY [facility] Last Admin: 12/25/20 09:00 Dose: 75 mg Documented by: Docusate Sodium (Docusate Sodium 250 Mg Capsule) 250 - 500 mg PO DAILY [facility] Last Admin: 12/25/20 09:02 Dose: 250 mg Documented by: Escitalopram Oxalate (Escitalopram 10 Mg Tablet) 10 mg PO DAILY [facility] Last Admin: 12/25/20 09:00 Dose: 10 mg Documented by: Famotidine (Famotidine 20 Mg Tablet) 20 mg PO 0700 [facility] Last Admin: 12/25/20 05:46 Dose: 20 mg Documented by: Ferrous Sulfate (Ferrous Sulfate 325 Mg Tablet) 325 mg PO DAILYWM [facility] Last Admin: 12/25/20 09:01 Dose: 325 mg Documented by: Metoprolol Succinate (Metoprolol Succinate 50 Mg Tablet) 100 mg PO BID [facility] Last Admin: 12/25/20 09:01 Dose: 100 mg Documented by: Mineral Oil (Min Oil/Dimethicon/Coconut Oil 92 Gm Tube) 1 applic TOP PRN PRN PRN Reason: Skin Care Multi-Ingredient Ointment (Zinc Oxide 20% Oint 30 Gm Tube) 1 applic TOP PRN PRN PRN Reason: Skin Care Last Admin: 12/25/20 05:46 Dose: 1 applic Documented by: Ondansetron HCl (Ondansetron 4 Mg/2 Ml Vial) 4 mg IVP Q6HR PRN PRN Reason: Nausea / Vomiting Last Admin: 12/21/20 10:34 Dose: 4 mg Documented by: Patient Own Med - Olopatadine Ophthalmic Solution 1 each EACHEYE DAILY [facility] Last Admin: 12/25/20 09:01 Dose: Not Given Documented by: Polyethylene Glycol (Polyethylene Glycol 3350 17 Gm Packet) 17 gm PO DAILY [facility] Last Admin: 12/25/20 09:02 Dose: 17 gm Documented by: Prednisone (Prednisone 5 Mg Tablet) 2.5 mg PO DAILY [facility] Last Admin: 12/25/20 09:01 Dose: 2.5 mg Documented by: Senna (Senna 8.6 Mg Tablet) 8.6 - 17.2 mg PO DAILY [facility] Last Admin: 12/25/20 09:01 Dose: 8.6 mg Documented by: Sodium Chloride (Sodium Chloride Flush 0.9% 10 Ml Syringe) 10 ml IVP PRN PRN PRN Reason: NEEDED PER PROVIDER ORDERS Sodium Chloride (Sodium Chloride Flush 0.9% 10 Ml Syringe) 10 ml IVP 0100,0900,1700 [facility] Last Admin: 12/25/20 09:02 Dose: 10 ml Documented by: Clopidogrel [Plavix] 75 mg PO DAILY 12/12/12 Escitalopram [Lexapro] 10 mg PO DAILY 12/12/12 Furosemide 20 mg PO DAILY 12/12/12 Lovastatin 40 mg PO DAILY 12/12/12 Losartan [Cozaar] 100 mg PO QPM 08/17/16 guaiFENesin [Guaifenesin] 200 mg PO Q6H PRN 08/17/16 Acetaminophen 650 mg PO Q6H PRN 08/02/17 Albuterol Sulf [Ventolin Hfa Inhaler] 2 puffs INH Q3H PRN 08/02/17 Budesonide [Pulmicort Flexhaler] 2 puffs INH BID 08/02/17 Polyvinyl Alcohol [Artificial Tears] 1 drops EACHEYE BID 08/02/17 Afyvs-C-Okdgoxyftwtel [Beanaid] 150 unit PO DAILY 06/25/20 Famotidine [Pepcid] 20 mg DAILY 06/25/20 Ferrous Sulfate 325 mg PO DAILY 06/25/20 Fluticasone [Flonase] 1 sprays MATT BID 06/25/20 Loperamide HCl [Imodium A-D] 2 mg PO DAILY PRN 06/25/20 Loratadine [Allergy Relief] 10 mg PO DAILY 06/25/20 predniSONE [Deltasone] 2.5 mg PO DAILY 06/25/20 Olopatadine HCl [Pataday Once Daily Relief] 2.5 ml OP DAILY 12/17/20 Sulfamethox/Trimeth 800/160 [Bactrim Ds] 1 tab BID 12/17/20 Objective - Vital Signs/Intake & Output Reviewed Vital Signs: Yes Vital Signs: Vital Signs x48h Temp Pulse Pulse Resp BP BP Pulse Ox 12/25/20 09:00 106 H 104/48 L 12/25/20 07:58 37 C 84 19 100 12/25/20 07:34 90 16 12/25/20 05:45 36.9 C 90 17 147/76 H 94 Intake & Output: Intake & Output 12/22/20 12/23/20 12/24/20 12/25/20 23:59 23:59 23:59 23:59 Intake Total 745 695 630 150 Output Total 1371 1663 2747 650 Balance -1330 -1935 -1920 -500 - Objective General Appearance: positive: No acute distress, Alert Eyes Bilateral: positive: Normal inspection ENT: positive: ENT inspection nml Respiratory: positive: No respiratory distress, Wheezes (Faint expiratory wheezes.). negative: Rales Cardiovascular: positive: Irregularly irregular. negative: Tachycardia, Systolic murmur Abdomen: positive: Nml bowel sounds, Tenderness (Mild tenderness in right upper quadrant.). negative: Guarding, Rebound Skin: positive: Warm, Dry Extremities: positive: No pedal edema Neurologic/Psychiatric: negative: Disoriented to person, Disoriented to place - Lab Results Fish Bones: 12/25/20 04:35 12/25/20 04:35 Other Labs: Lab Results x24hrs 12/25/20 12/25/20 12/25/20 Range/Units 04:35 04:35 04:35 WBC 14.5 H (4.8-10.8) x10^3/uL RBC 4.39 (4.20-5.40) 10^6/uL Hgb 13.2 (12.0-16.0) g/dL Hct 41.9 (37.0-47.0) % MCV 95.4 (81.0-99.0) fL MCH 30.1 (27.0-31.0) pg MCHC 31.5 L (32.0-36.0) g/dL RDW 13.2 (12.0-15.0) % Plt Count 248 (130-450) 10^3/uL MPV 11.0 H (7.9-10.8) fL Neut # (Auto) 10.5 H (1.5-6.6) 10^3/uL Lymph # (Auto) 2.0 (1.5-3.5) 10^3/uL [place] # (Auto) 1.1 H (0.0-1.0) 10^3/uL Eos # (Auto) 0.6 (0.0-0.7) 10^3/uL Baso # (Auto) 0.0 (0.0-0.1) 10^3/uL Absolute Nucleated RBC 0.00 x10^3/uL Nucleated RBC % 0.0 /100WBC Sodium 143 (135-145) mmol/L Potassium 3.6 (3.5-5.0) mmol/L Chloride 101 (101-111) mmol/L Carbon Dioxide 30 (21-32) mmol/L Anion Gap 12.0 (6-13) BUN 51 H (6-20) mg/dL Creatinine 1.4 H (0.4-1.0) mg/dL Estimated GFR (MDRD) 36 L (>89) Glucose 101 H (70-100) mg/dL Calcium 9.4 (8.5-10.3) mg/dL B-Natriuretic Peptide 573 H (5-100) pg/mL ABX Reporting Has patient been on IV antibiotics over the past 48 hours?: No Assessment/Plan - Problem List (1) Hypotension Impression: She does have orthostatic hypotension as her systolic decreases more than 20 mmHg from supine to sitting position. Suspect is likely due to her diuresis as well as the use of diltiazem and metoprolol to control her heart rate. She is not appear to be symptomatic from this as she was able to ambulate a little bit with physical therapy yesterday. Given that she appears euvolemic, we will discontinue Lasix altogether. We will also continue with diltiazem and just continue with metoprolol alone for rate control for her A. fib. We will continue to monitor her blood pressure. Qualifiers: Hypotension type: orthostatic hypotension Qualified Code(s): I95.1 - Orthostatic hypotension (2) Right upper quadrant abdominal pain Impression: Although her abdominal pain appears to be intermittent, she does appear to have mild tenderness on exam. She also presented with nausea and vomiting initially although this has resolved. We will order right upper quadrant ultrasound to further evaluate her tenderness. We will make n.p.o. for the time being. (3) Acute diastolic heart failure Impression: This is now resolved. Her BNP continues to trend down and she appears euvolemic. X-ray today did reveal some mild pulmonary vascular congestion but clinically she does not appear to be in heart failure. We will discontinue the Lasix given her orthostatic hypotension. We will continue to monitor at this time. (4) ARF (acute renal failure) Impression: Renal function continues to improve and her creatinine is down to 1.4. We have discontinued her Lasix given orthostatic hypotension. We will hold off on further IV fluids at this time given she appears euvolemic. We will continue to monitor her renal function. Avoid nephrotoxins. (5) Acute exacerbation of COPD with asthma Impression: This is improved. She has minimal wheezing on exam now. Continue with her current inhalers. (6) NSTEMI (non-ST elevated myocardial infarction) Impression: This was managed medically. She remains on Plavix, beta-slim, statin. She is on Eliquis for the atrial fibrillation as well. She will need outpatient follow-up with cardiology. (7) Atrial fibrillation Impression: She is rate controlled but this will need to be monitored as we discontinue her diltiazem given the hypotension. We will continue the current dose of metoprolol and Eliquis for anticoagulation. (8) UTI (urinary tract infection) Impression: There was concern for UTI on admission but her urine culture had no growth. Nonetheless she completed 5 days of antibiotics during this hospitalization. Qualifiers: Urinary tract infection type: acute cystitis Hematuria presence: with hematuria Qualified Code(s): N30.01 - Acute cystitis with hematuria
--- NOTE | 2020-12-25 19:44 | Ultrasound Report ---
PROCEDURE: Abdomen Complete INDICATIONS: RUQ abdominal pain. TECHNIQUE: Real-time scanning was performed of the abdominal and retroperitoneal organs, with image documentatio n. COMPARISON: Renal ultrasound dated 12/17/2020. CT abdomen and pelvis dated 09/25/2014. FINDINGS: Liver: Liver demonstrates coarsened hepatic echotexture without intrahepatic mass lesion.. Gallbladder: Gallbladder is surgically absent Biliary ducts: Intrahepatic bile ducts are non-dilated. Extrahepatic bile duct caliber measures 4 m m. Normal is 6-7 mm or less in diameter, or 10 mm or less post-cholecystectomy. Pancreas: Pancreas is not well-visualized secondary to overlying bowel gas. Spleen: Spleen is normal in size and homogeneous in echotexture. Kidneys: Kidneys are normal in size and echotexture. Right kidney measures 9.6 cm long; left kidney measures 9.4 cm long. No hydronephrosis or nephrolithiasis. No solid masses. Redemonstration of p reviously described bilateral renal cysts. Largest measures 1.5 cm on the right and 2.0 cm on the lef t. Aorta: Visualized aorta is normal in caliber at less than 3 cm. Iliacs: Proximal common iliac arteries were not visualized IVC: Intrahepatic inferior vena cava is patent. Miscellaneous: No free abdominal fluid. IMPRESSION: Limited examination secondary to moderate overlying bowel gas and patient's inability to breath-hold. Coarsened hepatic echotexture without focal mass lesions. Findings may be related to sequela of chron ic hepatocellular disease or steatosis. Status post cholecystectomy. No evidence for obstructive uropathy. Redemonstration of bilateral renal cysts. Reviewed by: Timothy Diaz MD on 12/25/2020 7:43 PM PDT Approved by: Timothy Diaz MD on 12/25/2020 7:43 PM PDT Station ID: [id number]
[2020-12-25] MEDS: ATORVASTATIN 40 MG TABLET PO SCH (20:29)
[2020-12-26 05:01] LABS: BASOPHILS % (AUTO) 0.3 %; EOSINOPHILS # (AUTO) 0.5 10^3/uL (0.0-0.7); EOSINOPHILS % (AUTO) 3.2 %; HCT - HEMATOCRIT 40.9 % (37.0-47.0); LYMPHOCYTES # (AUTO) 1.7 10^3/uL (1.5-3.5); MEAN CORPUSCULAR HEMOGLOBIN 30.2 pg (27.0-31.0); MEAN CORPUSCULAR HGB CONC 31.8 g/dL (32.0-36.0); MEAN CORPUSCULAR VOLUME 94.9 fL (81.0-99.0); MEAN PLATELET VOLUME 11.2 fL (7.9-10.8); MONOCYTES # (AUTO) 1.5 10^3/uL (0.0-1.0); MONOCYTES % (AUTO) 9.5 %; NEUTROPHILS # (AUTO) 11.2 10^3/uL (1.5-6.6); NEUTROPHILS % (AUTO) 73.3 %; PLT - PLATELET COUNT 276 10^3/uL (130-450); RED BLOOD COUNT 4.31 10^6/uL (4.20-5.40); RED CELL DISTRIBUTION WIDTH 13.3 % (12.0-15.0); WHITE BLOOD COUNT 15.2 x10^3/uL (4.8-10.8)
[2020-12-26 05:10] LABS: CALCIUM 9.2 mg/dL (8.5-10.3); CREATININE 1.5 mg/dL (0.4-1.0); POTASSIUM 3.7 mmol/L (3.5-5.0)
[2020-12-26] MEDS: FAMOTIDINE 20 MG TABLET PO SCH (06:40)
[2020-12-26] MEDS: SODIUM CHLORIDE FLUSH 0.9% 10 ML SYRINGE IVP SCH ×2 (06:40→09:20)
[2020-12-26] MEDS ORDERED: MICONAZOLE VAGINAL CREAM 45 GM TUBE VG SCH (07:10)
[2020-12-26] MEDS ORDERED: FLUCONAZOLE 100 MG TABLET PO STA (07:44)
[2020-12-26] MEDS: BUDESONIDE 0.5 MG/2 ML NEB INH SCH (07:45)
[2020-12-26] MEDS: IPRATROPIUM/ALBUTEROL 3 ML NEB INH PRN (07:45)
[2020-12-26] MEDS: polyethylene glycoL 3350 17 GM PACKET PO SCH (08:16)
[2020-12-26] MEDS: APIXABAN 2.5 MG TABLET PO SCH (08:20)
[2020-12-26] MEDS: CLOPIDOGREL 75 MG TABLET PO SCH (08:21)
[2020-12-26] MEDS: METOPROLOL SUCCINATE 50 MG TABLET PO SCH (08:22)
[2020-12-26] MEDS: SENNA 8.6 MG TABLET PO SCH (08:23)
[2020-12-26] MEDS: ESCITALOPRAM 10 MG TABLET PO SCH (08:24)
[2020-12-26] MEDS: FERROUS SULFATE 325 MG TABLET PO SCH (08:24)
[2020-12-26] MEDS: DOCUSATE SODIUM 250 MG CAPSULE PO SCH (08:31)
[2020-12-26] MEDS: predniSONE 5 MG TABLET PO SCH (08:31)
[2020-12-26] MEDS: OLOPATADINE EACHEYE SCH (08:52)
--- NOTE | 2020-12-26 10:26 | Discharge Plan ---
Discharge Plan for SNF / [facility] - Discharge Plan And Transition Orders Problem Reviewed?: Yes Disposition: 03 SNF DC/Xfer Condition: Stable Allergies and Adverse Reactions: Allergies Allergy/AdvReac Type Severity Reaction Status Date / Time levofloxacin [From Levaquin] Allergy Severe Unknown Verified 12/17/20 09:27 perfume Allergy Unknown Verified 12/17/20 09:27 metals gold silver Allergy Unknown Uncoded 12/17/20 09:27 Health Concerns: She was admitted initially for a suspected urinary tract infection given she had a fever and leukocytosis. She started on IV ceftriaxone and later transitioned to cefepime given she continued to have a fever. She also developed acute kidney injury which she was treated with IV fluids. She was noted to be quite lethargic and did have a mild COPD exacerbation and so an ABG was obtained which did not reveal hypercapnia. Troponins were checked and they were elevated in the 200s and given she had no chest pain without evidence of ischemia on EKG, it was felt that this was demand ischemia. Her echocardiogram also showed a preserved ejection fraction. She then unfortunately developed worsening dyspnea and lethargy and so a chest x-ray was obtained which showed acute pulmonary vascular congestion which was concerning for CHF. Repeat troponins were obtained and had now increased to 900. It was not thought that she had a NSTEMI and so she was given IV Lasix and started on metoprolol. Her atorvastatin dose was increased to 40 mg and she was continued on her home Plavix. A repeat echocardiogram showed a preserved ejection fraction. Given she also still had exacerbation of her COPD, she was started on Solu-Medrol IV for 2 days. We did consider obtaining a stress test but this was held off given her acute kidney injury as she would not be a candidate for an angiogram at this time and so she was medically managed. She then developed new onset atrial fibrillation for which she was transferred to the intensive care unit for a diltiazem drip. She was also started on Eliquis for anticoagulation. After discussion with the patient and her brother, they were agreeable to just medical management alone for the NSTEMI and so a stress test was not obtained and she will need outpatient follow-up with cardiology. She was transitioned off of the diltiazem drip to oral metoprolol and diltiazem. Her IV Lasix was switched to oral Lasix and her BNP began to decrease. Her urine culture ended up growing no bacteria and so antibiotics were discontinued after 5 days. It is not clear what caused her fever on admission. Her heart rate had improved on diltiazem and metoprolol but unfortunate she developed orthostatic hypotension. Her Lasix was discontinued given she appeared euvolemic and her BNP had significantly decreased. Repeat imaging also only suggested mild CHF but clinically she did not appear to be in heart failure and actually appeared slightly hypovolemic as her white count, hemoglobin, platelet count had all increased. We held off on IV fluids given her recent heart failure but we did discontinue her Lasix as mentioned above. She continued to have orthostasis and so we discontinued the diltiazem as well and kept her on just the metoprolol for rate control. Her orthostatics have since resolved and her heart rate remains controlled in the 90s on the metoprolol. I did speak with her brother, Charles, who believes she is close to her baseline. He tells me that she is normally not very talkative with strangers and that she has the thought process of a "12-year-old". At this point in time, she is stable for discharge to a skilled nurse facility for ongoing rehab. She will need follow-up with cardiology on discharge. She did have urinary retention and she will need to be discharged with a Rubi catheter and a voiding trial can be considered at the skilled nurse facility and if she fails this then she will need follow-up with urology. She was also noted to have Rajni vulvovaginitis and was given a one-time dose of fluconazole prior to discharge. Plan of Treatment: Continue metoprolol 100 mg twice a day for her atrial fibrillation. She will need outpatient follow-up with cardiology given the atrial relation and recent NSTEMI. She will be taking Plavix and Eliquis. We will not discharge her with any diuretics given she appears you bulimic if not even a little hypovolemic. We will continue to encourage oral intake. Her losartan was discontinued as she has been normotensive without it. Resumption of this can be considered on outpatient basis given her CKD. - SNF / [facility] Transition Orders Admit to (Facility): [facility] Discharge Diagnosis: Orthostatic hypotension - resolved Acute diastolic heart failure - resolved Acute kidney injury - resolved. Acute exacerbation of COPD - resolved. NSTEMI - resolved Atrial fibrillation - stable. Rajni vulvovaginitis - ongoing. Urinary retention - ongoing. UTI - resolved. Medicare Certification Statement: I certify that [facility] half-way care is medically necessary on a continuing basis for any of the conditions for which she/he is receiving care during hospitalization. Notify PCP of admission and forward orders to primary provider for signature. Other Notification Orders: Call PCP immediately if patient develops dyspnea, chest pain/tightness or edema. Additional Bowel Program Orders: If no BM after 2 days, nurse may give M.O.M. 30ml PO PRN and/or ducolax Supp 1 NJ and/or ISAK 250mg P.O., and/or senna 1-2 tabs PO. On day 3 nurse may give repeat above order until residents constipation is resolved. Medication Orders: PLEASE REFER TO THE DISCHARGE MEDICATION LIST. - Medications New Prescriptions: Apixaban [Eliquis] 2.5 mg PO BID #60 tablet Atorvastatin [Lipitor] 40 mg PO QPM #30 tablet Miconazole Vaginal Cream [Monistat-7] 1 applic VG QPM 7 Days #1 tu Metoprolol Succinate [Toprol Xl] 100 mg PO BID #60 tablet - Diet Type: Geriatric - Therapies | Activity Therapy: Evaluation | Treat if indicated: PT, OT, Swallowing / ST Rehabilitation Potential: Maximize functional status Activity: Activity as Tolerated Follow Up: She will need follow-up with cardiology on outpatient basis. She will need voiding trial and if she fails this then a follow-up with urology is recommended.
--- NOTE | 2020-12-26 13:55 | DISCHARGE SUMMARY ---
Discharge Summary Admit Date: 12/17/20 Discharge Date: 12/26/20 Discharging Provider: Jamel Mosquera Primary Care Provider: Junaid Briones Code Status: Do Not Attempt Resuscitation Condition at Discharge: Stable Discharge Disposition: SNF DC/Xfer Discharge Facility Name: [facility] - DIAGNOSES Admission Diagnoses: UTI Acute exacerbation of COPD with asthma Depression GERD Acute renal failure Discharge Diagnoses with Status of Each Condition: Orthostatic hypotension - resolved Acute diastolic heart failure - resolved Acute kidney injury - resolved. Acute exacerbation of COPD - resolved. NSTEMI - resolved Atrial fibrillation - stable. Rajni vulvovaginitis - ongoing. Urinary retention - ongoing. UTI - resolved. Intellectual disability - stable. - HPI History of Present Illness: H&P per Dr. Stephen: Patient is a 79-year-old female who presented to the ED with complaint of upset stomach, abdominal pain and diarrhea which started last night. She had also been experiencing dyspnea. She has also been experiencing increased urinary frequency.She denied any chest pain. She is very hard of hearing which limits the history taking and currently is somewhat lethargic. In the ED she was found to have a temperature of 39.1 Celsius and a white blood cell count of 19. Further work-up included a UA which was indicative of a UTI. On auscultation the patient has significantly diminished air movements bilaterally. While at rest her oxygen saturation were intermittently drop into the 80s. As a result of the above she was presented for admission for further treatment - CONSULTS | PROCEDURES Consultations: PT Procedures: Echocardiogram on December 18 revealed mild LVH with an ejection fraction of 75%. Moderate diastolic dysfunction. Mild mitral regurgitation. Mild pulmonary pretension, PASP 37 mmHg. Echocardiogram on December 22 revealed mild concentric LVH with an ejection fraction of 70 to 75%. The right ventricle is normal in size and function. Mildly abnormal right heart pressures. RVSP at rest is 39 mmHg/ - HOSPITAL COURSE Hospital Course: She was admitted initially for a suspected urinary tract infection given she had a fever and leukocytosis. She started on IV ceftriaxone and later transitioned to cefepime given she continued to have a fever. She also developed acute kidney injury which she was treated with IV fluids. She was noted to be quite lethargic and did have a mild COPD exacerbation and so an ABG was obtained which did not reveal hypercapnia. Troponins were checked and they were elevated in the 200s and given she had no chest pain without evidence of ischemia on EKG, it was felt that this was demand ischemia. Her echocardiogram also showed a preserved ejection fraction. She then unfortunately developed worsening dyspnea and lethargy and so a chest x-ray was obtained which showed acute pulmonary vascular congestion which was concerning for CHF. Repeat troponins were obtained and had now increased to 900. It was not thought that she had a NSTEMI and so she was given IV Lasix and started on metoprolol. Her atorvastatin dose was increased to 40 mg and she was continued on her home Plavix. A repeat echocardiogram showed a preserved ejection fraction. Given she also still had exacerbation of her COPD, she was started on Solu-Medrol IV for 2 days. We did consider obtaining a stress test but this was held off given her acute kidney injury as she would not be a candidate for an angiogram at this time and so she was medically managed. She then developed new onset atrial fibrillation for which she was transferred to the intensive care unit for a diltiazem drip. She was also started on Eliquis for anticoagulation. After discussion with the patient and her brother, they were agreeable to just medical management alone for the NSTEMI and so a stress test was not obtained and she will need o utpatient follow-up with cardiology. She was transitioned off of the diltiazem drip to oral metoprolol and diltiazem. Her IV Lasix was switched to oral Lasix and her BNP began to decrease. Her urine culture ended up growing no bacteria and so antibiotics were discontinued after 5 days. It is not clear what caused her fever on admission. Her heart rate had improved on diltiazem and metoprolol but unfortunate she developed orthostatic hypotension. Her Lasix was discontinued given she appeared euvolemic and her BNP had significantly decreased. Repeat imaging also only suggested mild CHF but clinically she did not appear to be in heart failure and actually appeared slightly hypovolemic as her white count, hemoglobin, platelet count had all increased. We held off on IV fluids given her recent heart failure but we did discontinue her Lasix as mentioned above. She continued to have orthostasis and so we discontinued the diltiazem as well and kept her on just the metoprolol for rate control. Her orthostatics have since resolved and her heart rate remains controlled in the 90s on the metoprolol. I did speak with her brother, Charles, who believes she is close to her baseline. He tells me that she is normally not very talkative with strangers and that she has the thought process of a "12-year-old". At this point in time, she is stable for discharge to a skilled nurse facility for ongoing rehab. She will need follow-up with cardiology on discharge. She did have urinary retention and she will need to be discharged with a Rubi catheter and a voiding trial can be considered at the skilled nurse facility and if she fails this then she will need follow-up with urology. She was also noted to have Rajni vulvovaginitis and was given a one-time dose of fluconazole prior to discharge. - ALLERGIES Allergies/Adverse Reactions: Allergies Allergy/AdvReac Type Severity Reaction Status Date / Time levofloxacin [From Levaquin] Allergy Severe Unknown Verified 12/17/20 09:27 perfume Allergy Unknown Verified 12/17/20 09:27 metals gold silver Allergy Unknown Uncoded 12/17/20 09:27 - MEDICATIONS Home Medications: Ambulatory Orders Medication Instructions Recorded Confirmed Clopidogrel [Plavix] 75 mg PO DAILY 12/12/12 12/17/20 Escitalopram [Lexapro] 10 mg PO DAILY 12/12/12 12/17/20 guaiFENesin [Guaifenesin] 200 mg PO Q6H PRN 08/17/16 12/17/20 Acetaminophen 650 mg PO Q6H PRN 08/02/17 12/17/20 Albuterol Sulf [Ventolin Hfa 2 puffs INH Q3H PRN 08/02/17 12/17/20 Inhaler] Budesonide [Pulmicort Flexhaler] 2 puffs INH BID 08/02/17 12/17/20 Polyvinyl Alcohol [Artificial 1 drops EACHEYE BID 08/02/17 12/17/20 Tears] Sovay-G-Fsupnrivwgctv [Beanaid] 150 unit PO DAILY 06/25/20 12/17/20 Famotidine [Pepcid] 20 mg DAILY 06/25/20 12/17/20 Ferrous Sulfate 325 mg PO DAILY 06/25/20 12/17/20 Fluticasone [Flonase] 1 sprays MATT BID 06/25/20 12/17/20 Loperamide HCl [Imodium A-D] 2 mg PO DAILY PRN 06/25/20 12/17/20 Loratadine [Allergy Relief] 10 mg PO DAILY 06/25/20 12/17/20 Meloxicam [Mobic] 7.5 mg PO BID PRN #10 tablet 06/25/20 12/17/20 predniSONE [Deltasone] 2.5 mg PO DAILY 06/25/20 12/17/20 Olopatadine HCl [Pataday Once 2.5 ml OP DAILY 12/17/20 12/17/20 Daily Relief] Apixaban [Eliquis] 2.5 mg PO BID #60 tablet 12/26/20 Atorvastatin [Lipitor] 40 mg PO QPM #30 tablet 12/26/20 Metoprolol Succinate [Toprol Xl] 100 mg PO BID #60 tablet 12/26/20 Miconazole Vaginal Cream 1 applic VG QPM 7 Days #1 tu 12/26/20 [Monistat-7] - PHYSICAL EXAM AT DISCHARGE General Appearance: positive: No acute distress, Alert Eyes Bilateral: positive: Normal inspection, Conjunctivae nml ENT: positive: ENT inspection nml Neck: positive: Nml inspection Respiratory: positive: No respiratory distress. negative: Wheezes, Rales Cardiovascular: positive: Irregularly irregular. negative: Tachycardia, Bradycardia, Systolic murmur Abdomen: positive: Non-tender, No distention. negative: Tenderness Skin: positive: Warm, Dry Extremities: positive: No pedal edema Neurologic/Psychiatric: positive: Other (Left hand contracture noted.). negative: Disoriented to person, Disoriented to place Physical Exam Other/Comments: Vital Signs - 24 hr 12/25/20 12/25/20 12/26/20 19:59 20:00 00:15 Temperature 36.4 C L 36.7 C Heart Rate 68 Heart Rate [ 93 91 Brachial] Respiratory 18 20 18 Rate Blood Pressure 132/71 H [Left Brachial artery] Blood Pressure 114/66 [Right Brachial artery] O2 Saturation 100 93 12/26/20 12/26/20 12/26/20 04:30 07:45 08:10 Temperature 36.6 C 36.8 C Heart Rate 99 Heart Rate [ 90 106 H Brachial] Respiratory 18 24 18 Rate Blood Pressure 128/68 130/82 H [Left Brachial artery] Blood Pressure [Right Brachial artery] O2 Saturation 94 93 12/26/20 12/26/2012/26/21 11:20 12:05 15:44 Temperature 36.5 C 36.5 C Heart Rate 70 Heart Rate [ 98 84 Brachial] Respiratory 18 18 Rate Blood Pressure 133/58 H 111/68 [Left Brachial artery] Blood Pressure [Right Brachial artery] O2 Saturation 95 97 Oxygen O2 Source Room air Oxygen Flow Rate 2 - LABS Result Diagrams: 12/26/20 04:19 12/26/20 04:19 - FOLLOW UP Follow Up: She will need follow-up with cardiology on outpatient basis. She will need voiding trial and if she fails this then a follow-up with urology is recommended. - TIME SPENT Time Spent in Discharge (Minutes): 34
[2020-12-26 15:45] VITALS: BP 111/68
[2020-12-26 15:50] LABS: B. PARAPERTUSSIS- RESP PCR PAN NOT DETECTED; B. PERTUSSIS- RESP PCR PANEL NOT DETECTED; C. PNEUMONIAE- RESP PCR PANEL NOT DETECTED; CORONAVIRUS 229E-RESP PCR NOT DETECTED; CORONAVIRUS HKU1-RESP PCR NOT DETECTED; CORONAVIRUS NL63-RESP PCR NOT DETECTED; CORONAVIRUS OC43-RESP PCR NOT DETECTED; HUMAN METAPNEUMOVIRUS NOT DETECTED; INFLUENZA A- RESP PCR PANEL NOT DETECTED; INFLUENZA B - RESP PCR PANEL NOT DETECTED; M. PNEUMONIAE- RESP PCR PANEL NOT DETECTED; PARAINFLUENZA VIRUS 1 NOT DETECTED; PARAINFLUENZA VIRUS 2 NOT DETECTED; PARAINFLUENZA VIRUS 3 NOT DETECTED; PARAINFLUENZA VIRUS 4 NOT DETECTED; RHINOVIRUS/ENTEROVIRUS NOT DETECTED; RSV- RESP PCR PANEL NOT DETECTED; SARS-CoV-2 -RESP PCR PANEL NOT DETECTED
== END 2020-12-26 16:16 | DRG 689 ==
LOC: EDUNIT# → ED 09:00 → MS2 13:19
PROVIDERS: ADMIT Internal Medicine; ATTEND Internal Medicine
DX: N30.01 Acute cystitis with hematuria (principal); I21.4 Non-ST elevation (NSTEMI) myocardial infarction; R41.0 Disorientation, unspecified; R11.2 Nausea with vomiting, unspecified; I50.31 Acute diastolic (congestive) heart failure; J44.1 Chronic obstructive pulmonary disease with (acute) exacerbation; N17.9 Acute kidney failure, unspecified; J45.901 Unspecified asthma with (acute) exacerbation; R53.83 Other fatigue; I11.0 Hypertensive heart disease with heart failure; I48.91 Unspecified atrial fibrillation; Z88.8 Allergy status to other drugs, medicaments and biological substances; F03.90 Unspecified dementia, unspecified severity, without behavioral disturbance, psychotic disturbance, mood disturbance, and anxiety; K21.9 Gastro-esophageal reflux disease without esophagitis; I95.1 Orthostatic hypotension; B37.3 Candidiasis of vulva and vagina; R33.9 Retention of urine, unspecified; R41.82 Altered mental status, unspecified; E86.1 Hypovolemia; I10 Essential (primary) hypertension; Z95.5 Presence of coronary angioplasty implant and graft; R10.11 Right upper quadrant pain; R35.0 Frequency of micturition; E78.00 Pure hypercholesterolemia, unspecified; J44.9 Chronic obstructive pulmonary disease, unspecified; R62.50 Unspecified lack of expected normal physiological development in childhood; F41.9 Anxiety disorder, unspecified; F31.9 Bipolar disorder, unspecified; F79 Unspecified intellectual disabilities; I27.20 Pulmonary hypertension, unspecified; Z20.822 Contact with and (suspected) exposure to COVID-19; R50.9 Fever, unspecified; H91.90 Unspecified hearing loss, unspecified ear; I25.10 Atherosclerotic heart disease of native coronary artery without angina pectoris; F32.9 Major depressive disorder, single episode, unspecified; Z79.899 Other long term (current) drug therapy
CPT/HCPCS: 36415; 36600; 51701; 70450; 71045; 71046; 76700; 76770; 80048; 80053; 81001; 82607; 82728; 82746; 82803; 83540; 83605; 83690; 83735; 83880; 84466; 84484; 85025; 87040; 87086; 87631; 93005; 93306; 94640; 96374; 96375; 97110; 97116; 97161; 97166; 97530; 97535; 99284; 99285; A9270; J1650; J7512; J7626; U0004; 0202U; 81003

== ENCOUNTER 2020-12-30 13:00 | Emergency (ER) | payer MEDICARE, MEDICAID ==
--- NOTE | 2020-12-30 13:19 | ED Physician Documentation ---
History of Present Illness - Stated complaint Stated Complaint: CP - Chief complaint Chief Complaint: Cardiac - Additonal information Additional information: 80-year-old female presents the emergency department from [facility] for evaluation of chest pain. She reportedly woke up this morning and complained of chest pain which went away. However when she was participating in physical therapy she again reported that her chest hurt therefore she was summoned via EMS to the emergency department. Patient is not able to participate in history as she has severe advanced dementia. She was recently hospitalized here at [facility] from 17 December through 26 December for orthostasis, acute diastolic heart failure, acute kidney injury exacerbation of COPD as well as an NSTEMI. She does have a history of atrial fibrillation and is anticoagulated on Eliquis. Patient also has an indwelling Rubi catheter for urinary retention. This remains in place since her discharge from the hospital. meds: eliquis, lipitor, metoprolol succinate (100mg) BID, plavix, lexapro, albuterol, budosenide, pepcid, flonase, prednisone (2.5 mg daily) Review of Systems Unable to obtain: Dementia, Other (chart review) PD PAST MEDICAL HISTORY - Past Medical History Cardiovascular: Hypertension, High cholesterol, Coronary artery disease Respiratory: Asthma, COPD Neuro: CVA Endocrine/Autoimmune: None GI: GERD PUMPING [employer]: Other : Incontinence, Frequency HEENT: Chronic vision loss, Chronic hearing loss Psych: Depression, Anxiety, Bipolar disorder, Schizophrenia Musculoskeletal: Chronic back pain Derm: Herpes zoster, Other - Past Surgical History Past Surgical History: Yes General: Cholecystectomy Cardiovascular: Angioplasty - Present Medications Home Medications: Ambulatory Orders Medication Instructions Recorded Confirmed Clopidogrel [Plavix] 75 mg PO DAILY 12/12/12 12/17/20 Escitalopram [Lexapro] 10 mg PO DAILY 12/12/12 12/17/20 guaiFENesin [Guaifenesin] 200 mg PO Q6H PRN 08/17/16 12/17/20 Acetaminophen 650 mg PO Q6H PRN 08/02/17 12/17/20 Albuterol Sulf [Ventolin Hfa 2 puffs INH Q3H PRN 08/02/17 12/17/20 Inhaler] Budesonide [Pulmicort Flexhaler] 2 puffs INH BID 08/02/17 12/17/20 Polyvinyl Alcohol [Artificial 1 drops EACHEYE BID 08/02/17 12/17/20 Tears] Huzkh-Z-Vwkarcnlezwdn [Beanaid] 150 unit PO DAILY 06/25/20 12/17/20 Famotidine [Pepcid] 20 mg DAILY 06/25/20 12/17/20 Ferrous Sulfate 325 mg PO DAILY 06/25/20 12/17/20 Fluticasone [Flonase] 1 sprays MATT BID 06/25/20 12/17/20 Loperamide HCl [Imodium A-D] 2 mg PO DAILY PRN 06/25/20 12/17/20 Loratadine [Allergy Relief] 10 mg PO DAILY 06/25/20 12/17/20 Meloxicam [Mobic] 7.5 mg PO BID PRN #10 tablet 06/25/20 12/17/20 predniSONE [Deltasone] 2.5 mg PO DAILY 06/25/20 12/17/20 Olopatadine HCl [Pataday Once 2.5 ml OP DAILY 12/17/20 12/17/20 Daily Relief] Apixaban [Eliquis] 2.5 mg PO BID #60 tablet 12/26/20 Atorvastatin [Lipitor] 40 mg PO QPM #30 tablet 12/26/20 Metoprolol Succinate [Toprol Xl] 100 mg PO BID #60 tablet 12/26/20 Miconazole Vaginal Cream 1 applic VG QPM 7 Days #1 tu 12/26/20 [Monistat-7] - Allergies Allergies/Adverse Reactions: Allergies Allergy/AdvReac Type Severity Reaction Status Date / Time levofloxacin [From Levaquin] Allergy Severe Unknown Verified 12/30/20 13:09 perfume Allergy Unknown Verified 12/30/20 13:09 metals gold silver Allergy Unknown Uncoded 12/30/20 13:09 - Social History Does the pt smoke?: No Smoking Status: Never smoker Does the pt drink ETOH?: No Does the pt have substance abuse?: No - Immunizations Immunizations are current?: Yes - POLST Patient has POLST: Yes PD ED PE EXPANDED - General General: Alert, No acute distress - Cardiac Cardiac: Irregularly irregular, Radial strong equal, Pedal strong equal, Cap refill < 2 sec - Respiratory Respiratory: Wheezing. No: Distress, Labored - Abdomen Abdomen: Normal Bowel sounds. No: Tender to palpation - Extremities Extremities: Normal. No: Deformity, Tenderness, Pedal edema bilateral - Neuro Neuro: Confused, CNII-XII intact - GCS Eye Opening: Spontaneous Motor: Obeys Commands Verbal: Confused Total: 14 Results - Vitals Vitals: Vital Signs - 24 hr 12/30/20 12/30/20 12/30/20 13:01 13:15 15:07 Temperature 36.8 C 36.5 C 36.5 C Heart Rate 105 H 97 100 Respiratory 20 16 16 Rate Blood Pressure 135/78 H 135/78 H 149/69 H O2 Saturation 96 98 100 Oxygen O2 Source Room air - EKG (time done) 1309 Rate: Rate (enter#) (104) Rhythm: Atrial fibrillation Intervals: RBBB QRS: Normal Ischemia: Non specific changes Compare to prior EKG: Unchanged from prior EKG Computer interpretation: Agree with computer - Labs Labs: Laboratory Tests 12/30/20 12/30/20 12/30/20 13:23 13:23 13:23 WBC 12.3 H RBC 4.25 Hgb 12.7 Hct 41.0 MCV 96.5 MCH 29.9 MCHC 31.0 L RDW 13.0 Plt Count 313 MPV 11.2 H Neut # (Auto) 9.2 H Lymph # (Auto) 1.7 Marion # (Auto) 0.9 Eos # (Auto) 0.3 Baso # (Auto) 0.0 Absolute Nucleated RBC 0.00 Nucleated RBC % 0.0 Sodium 143 Potassium 4.0 Chloride 101 Carbon Dioxide 29 Anion Gap 13.0 BUN 44 H Creatinine 1.5 H Estimated GFR (MDRD) 33 L Glucose 101 H Calcium 9.6 Total Bilirubin 0.9 AST 30 ALT 33 Alkaline Phosphatase 54 Troponin I High Sens 36.6 H* B-Natriuretic Peptide Total Protein 6.8 Albumin 3.3 Globulin 3.5 Albumin/Globulin Ratio 0.9 L Lipase 33 12/30/20 12/30/20 13:23 15:31 WBC RBC Hgb Hct MCV MCH MCHC RDW Plt Count MPV Neut # (Auto) Lymph # (Auto) Marion # (Auto) Eos # (Auto) Baso # (Auto) Absolute Nucleated RBC Nucleated RBC % Sodium Potassium Chloride Carbon Dioxide Anion Gap BUN Creatinine Estimated GFR (MDRD) Glucose Calcium Total Bilirubin AST ALT Alkaline Phosphatase Troponin I High Sens 35.7 H* B-Natriuretic Peptide 836 H Total Protein Albumin Globulin Albumin/Globulin Ratio Lipase - Rads (name of study) CXR Radiology: Final report received (No acute cardiopulmonary pathology) PD MEDICAL DECISION MAKING - ED course Complexity details: reviewed results, re-evaluated patient, d/w patient ED course: 80-year-old female was taken to the ER this morning for evaluation of chest pain when she woke up and again during physical therapy. She had a prolonged hospitalization on 17 December for heart failure, COPD as well as an NSTEMI. Today her EKG is unchanged from her last admission. Initial high-sensitivity troponin is 35 and on repeat is static. This likely represents a declining trend from her troponins when she was hospitalized versus her atrial fib and heart failure. NSTEMI today is not suspected. She does have A history of CHF but is not hypoxic or dyspneic. She has no lower extremity leg swelling. Her BNP is modestly elevated from discharge but given lack of hypoxia or crackles on exam we will continue to defer Lasix unless worsening. Patient will be discharged back to [facility] carriage emergent return precautions discussed Departure - Departure Disposition: Home, Self Care Clinical Impression: Chest pain Qualifiers: Chest pain type: unspecified Qualified Code(s): R07.9 - Chest pain, unspecified Dementia Qualifiers: Dementia type: unspecified type Dementia behavioral disturbance: without behavioral disturbance Qualified Code(s): F03.90 - Unspecified dementia without behavioral disturbance Condition: Stable Record reviewed to determine appropriate education?: Yes Follow-Up: Junaid Pedraza MD [Primary Care Provider] - Comments: Sandra was seen today in the emergency department for chest pain from when she woke up as well as during physical therapy. Her screening labs are essentially unchanged from her recent hospitalization. She is not having another heart attack. Her EKG was unchanged from the last ER visit. It is important that she continue to follow-up with her primary care provider as an outpatient she will need to get the stress test completed
[2020-12-30 13:28] LABS: BASOPHILS % (AUTO) 0.3 %; EOSINOPHILS # (AUTO) 0.3 10^3/uL (0.0-0.7); EOSINOPHILS % (AUTO) 2.8 %; HGB - HEMOGLOBIN 12.7 g/dL (12.0-16.0); LYMPHOCYTES # (AUTO) 1.7 10^3/uL (1.5-3.5); LYMPHOCYTES % (AUTO) 13.6 %; MEAN CORPUSCULAR HEMOGLOBIN 29.9 pg (27.0-31.0); MEAN CORPUSCULAR VOLUME 96.5 fL (81.0-99.0); MEAN PLATELET VOLUME 11.2 fL (7.9-10.8); MONOCYTES # (AUTO) 0.9 10^3/uL (0.0-1.0); MONOCYTES % (AUTO) 7.5 %; NEUTROPHILS # (AUTO) 9.2 10^3/uL (1.5-6.6); NEUTROPHILS % (AUTO) 75.3 %; PLT - PLATELET COUNT 313 10^3/uL (130-450); RED BLOOD COUNT 4.25 10^6/uL (4.20-5.40); WHITE BLOOD COUNT 12.3 x10^3/uL (4.8-10.8)
--- NOTE | 2020-12-30 13:30 | XRAY Report ---
PROCEDURE: Chest 1 View X-Ray INDICATIONS: Chest Pain TECHNIQUE: One view of the chest was acquired. COMPARISON: 12/25/2020 FINDINGS: Surgical changes and devices: None. Lungs and pleura: No pleural effusions or pneumothorax. Lungs are clear. Mediastinum: Mediastinal contours appear normal. Heart size is normal. Bones and chest wall: No suspicious bony lesions. Overlying soft tissues appear unremarkable. IMPRESSION: No acute cardiopulmonary pathology. Reviewed by: Ryder Pizarro MD on 12/30/2020 1:29 PM PDT Approved by: Ryder Pizarro MD on 12/30/2020 1:29 PM PDT Station ID: [id number]
[2020-12-30 13:51] LABS: ALBUMIN 3.3 g/dL (3.2-5.5); ALBUMIN/GLOBULIN RATIO 0.9 (1.0-2.2); BILIRUBIN,TOTAL 0.9 mg/dL (0.2-1.0); CALCIUM 9.6 mg/dL (8.5-10.3); CREATININE 1.5 mg/dL (0.4-1.0); TOTAL PROTEIN 6.8 g/dL (6.7-8.2)
[2020-12-30 17:27] VITALS: BP 144/69
== END 2020-12-30 18:02 | disposition home or self-care (01) ==
LOC: EDUNIT# → ED 13:00
DX: R07.9 Chest pain, unspecified (principal); F03.90 Unspecified dementia, unspecified severity, without behavioral disturbance, psychotic disturbance, mood disturbance, and anxiety; I11.0 Hypertensive heart disease with heart failure; I50.9 Heart failure, unspecified; I25.10 Atherosclerotic heart disease of native coronary artery without angina pectoris; I25.2 Old myocardial infarction; I48.91 Unspecified atrial fibrillation; Z79.01 Long term (current) use of anticoagulants; Z79.02 Long term (current) use of antithrombotics/antiplatelets; I45.10 Unspecified right bundle-branch block; J44.9 Chronic obstructive pulmonary disease, unspecified
CPT/HCPCS: 36415; 80053; 83690; 83880; 84484; 85025; 93005; 99281; 99284

== ENCOUNTER 2020-12-30 13:00 | Outpatient (CLI) | payer MEDICARE, MEDICAID | END 2020-12-30 13:01 | disposition critical access hospital (66) | LOC: EMS 13:00 | DX: R07.9 Chest pain, unspecified (principal) | CPT/HCPCS: A0425; A0429 ==

== ENCOUNTER 2020-12-30 18:04 | Outpatient (CLI) | payer MEDICARE, MEDICAID | END 2020-12-30 18:05 | disposition home or self-care (01) | LOC: EMS 18:04 | PROVIDERS: ATTEND Registered Nurse | DX: Z74.01 Bed confinement status (principal) | CPT/HCPCS: A0425; A0428 ==

== ENCOUNTER 2021-01-16 12:41 | Outpatient (CLI) | payer MEDICARE, MEDICAID | END 2021-01-16 12:42 | disposition home or self-care (01) | LOC: LAB.R 12:41 | PROVIDERS: ATTEND Family Medicine | DX: J44.1 Chronic obstructive pulmonary disease with (acute) exacerbation (principal) | CPT/HCPCS: 82533 ==

== ENCOUNTER 2021-02-23 15:45 | Outpatient (CLI) | payer MEDICARE, MEDICAID | END 2021-02-23 15:46 | disposition critical access hospital (66) | LOC: EMS 15:45 | DX: M79.605 Pain in left leg (principal); R22.42 Localized swelling, mass and lump, left lower limb | CPT/HCPCS: A0425; A0429 ==

== ENCOUNTER 2021-02-23 16:04 | Emergency (ER) | payer MEDICARE, MEDICAID ==
--- NOTE | 2021-02-23 16:18 | ED Physician Documentation ---
History of Present Illness - Stated complaint Stated Complaint: LFT LOWER LEG SWELLING - Chief complaint Chief Complaint: Ext Problem - History obtained from History obtained from: Patient - Additonal information Additional information: Patient comes emergency department for chief complaint of left lower extremity swelling. The patient is not able to give much information, secondary to history of dementia, but was [facility] after they noticed that her left leg seem more swollen than usual. Patient wears pressure stockings every day for chronic lower extremity edema, but usually the right leg is worse. Patient denies any complaints. She occasionally states "ow" but does not specify where pain is. Review of Systems Ten Systems: 10 systems reviewed and negative Constitutional: reports: Reviewed and negative Eyes: reports: Reviewed and negative Ears: reports: Reviewed and negative Nose: reports: Reviewed and negative Throat: reports: Reviewed and negative Cardiac: reports: Reviewed and negative Respiratory: reports: Reviewed and negative GI: reports: Reviewed and negative : reports: Reviewed and negative Skin: reports: Reviewed and negative Musculoskeletal: reports: Extremity swelling Neurologic: reports: Reviewed and negative Psychiatric: reports: Reviewed and negative Endocrine: reports: Reviewed and negative Immunocompromised: reports: Reviewed and negative PD PAST MEDICAL HISTORY - Past Medical History Cardiovascular: Hypertension, High cholesterol, Coronary artery disease Respiratory: Asthma, COPD Neuro: CVA Endocrine/Autoimmune: None GI: GERD 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 : Incontinence, Frequency HEENT: Chronic vision loss, Chronic hearing loss Psych: Depression, Anxiety, Bipolar disorder, Schizophrenia Musculoskeletal: Chronic back pain Derm: Herpes zoster, Other - Past Surgical History Past Surgical History: Yes General: Cholecystectomy Cardiovascular: Angioplasty - Present Medications Home Medications: Ambulatory Orders Medication Instructions Recorded Confirmed Clopidogrel [Plavix] 75 mg PO DAILY 12/12/12 02/23/21 Escitalopram [Lexapro] 10 mg PO DAILY 12/12/12 12/17/20 guaiFENesin [Guaifenesin] 200 mg PO Q6H PRN 08/17/16 02/23/21 Acetaminophen 650 mg PO Q6H PRN 08/02/17 02/23/21 Albuterol Sulf [Ventolin Hfa 2 puffs INH Q3H PRN 08/02/17 02/23/21 Inhaler] Budesonide [Pulmicort Flexhaler] 2 puffs INH BID 08/02/17 02/23/21 Polyvinyl Alcohol [Artificial 1 drops EACHEYE BID 08/02/17 02/23/21 Tears] Aepen-I-Knqajyrlfhmkm [Beanaid] 150 unit PO DAILY 06/25/20 12/17/20 Famotidine [Pepcid] 20 mg DAILY 06/25/20 02/23/21 Ferrous Sulfate 325 mg PO DAILY 06/25/20 02/23/21 Fluticasone [Flonase] 1 sprays MATT BID 06/25/20 02/23/21 Loperamide HCl [Imodium A-D] 2 mg PO DAILY PRN 06/25/20 02/23/21 Loratadine [Allergy Relief] 10 mg PO DAILY 06/25/20 02/23/21 Meloxicam [Mobic] 7.5 mg PO BID PRN #10 tablet 06/25/20 12/17/20 predniSONE [Deltasone] 2.5 mg PO DAILY 06/25/20 02/23/21 Olopatadine HCl [Pataday Once 2.5 ml OP DAILY 12/17/20 02/23/21 Daily Relief] Apixaban [Eliquis] 2.5 mg PO BID #60 tablet 12/26/20 Atorvastatin [Lipitor] 40 mg PO QPM #30 tablet 12/26/20 02/23/21 Metoprolol Succinate [Toprol Xl] 100 mg PO BID #60 tablet 12/26/20 02/23/21 Miconazole Vaginal Cream 1 applic VG QPM 7 Days #1 tu 12/26/20 [Monistat-7] Apixaban [Eliquis] 1 tab PO DAILY 02/23/21 02/23/21 Budesonide [Pulmicort] 2 puffs PO BID 02/23/21 02/23/21 Escitalopram [Lexapro] 1 tab PO DAILY 02/23/21 02/23/21 Gabapentin [Neurontin] 1 tab PO DAILY 02/23/21 02/23/21 - Allergies Allergies/Adverse Reactions: Allergies Allergy/AdvReac Type Severity Reaction Status Date / Time levofloxacin [From Levaquin] Allergy Severe Unknown Verified 02/23/21 16:10 perfume Allergy Unknown Verified 02/23/21 16:10 metals gold silver Allergy Unknown Uncoded 12/30/20 13:09 - Social History Does the pt smoke?: No Smoking Status: Never smoker Does the pt drink ETOH?: No Does the pt have substance abuse?: No - Immunizations Immunizations are current?: Yes - POLST Patient has POLST: Yes PD ED PE NORMAL - Vitals Vital signs reviewed: Yes - General General: No acute distress, Well developed/nourished, Other (Alert, not oriented.) - HEENT HEENT: Atraumatic, PERRL, EOMI, Moist mucous membranes - Neck Neck: Supple, no meningeal sign - Cardiac Cardiac: RRR, No murmur - Respiratory Respiratory: No respiratory distress, Clear bilaterally - Abdomen Abdomen: Soft, Non tender, Non distended - Derm Derm: Warm and dry, No rash, Other (Pallor bilateral lower extremities.) - Extremities Extremities: No deformity, Other (2+ pitting edema bilateral lower extremities, roughly symmetrical.) - Neuro Neuro: Alert and oriented X 3, toolroom attendant 2-12 intact, Normal speech - Psych Psych: Normal mood, Normal affect Results - Vitals Vitals: Vital Signs - 24 hr 02/23/21 02/23/21 16:11 16:20 Temperature 37.3 C Heart Rate 118 H 119 H Respiratory 118 H 22 Rate Blood Pressure 184/115 H 183/123 H O2 Saturation 96 96 Oxygen O2 Source Room air Departure - Departure Disposition: 01 Home, Self Care Clinical Impression: Lower extremity edema Condition: Stable Instructions: ED Edema Legs Bilateral Comments: Sandra has good pulses by ultrasound and her feet and ankles on both sides. Additionally, ultrasound does not show any blood clot in her left leg. There is no evidence of infection. Please continue to have her wear her pressure stockings and have her follow-up with her primary doctor as needed.
[2021-02-23 18:03] VITALS: BP 169/106
--- NOTE | 2021-02-23 18:05 | Ultrasound Report ---
PROCEDURE: Duplex Ext Veins Left INDICATIONS: pain/swelling TECHNIQUE: Real-time imaging, as well as color and pulse Doppler interrogation, were performed of the lower extr emity deep veins from the inguinal ligament to the popliteal fossa. COMPARISON: None. FINDINGS: The superficial femoral vein distally and calf veins are unable to completely compress. Thi s is felt to be due to stiffness and edema. Color and pulse Doppler demonstrate normal phasic intralu marietta flow. There is normal augmentation response to distal compression maneuver. There is a small anechoic fluid collection at the left anterior knee measuring 3.1 x 2.3 x 0.4 cm mas s minimal volume of less than 2 cc. No surrounding hyperemia. IMPRESSION: The exam is limited due to lower extremity stiffness and edema. No deep venous thrombosis is identified in the left lower extremity. Calf veins are not well seen. Marked subcutaneous edema. Reviewed by: Keshav Cuellar MD on 02/23/2021 6:04 PM PDT Approved by: Keshav Cuellar MD on 02/23/2021 6:04 PM PDT Station ID: [id number]
[2021-02-23] MEDS ORDERED: ACETAMINOPHEN 325 MG TABLET PO STA (18:37)
== END 2021-02-23 18:56 | disposition home or self-care (01) ==
LOC: EDUNIT# → ED 16:04
DX: R60.0 Localized edema (principal); F03.90 Unspecified dementia, unspecified severity, without behavioral disturbance, psychotic disturbance, mood disturbance, and anxiety; I10 Essential (primary) hypertension; E78.00 Pure hypercholesterolemia, unspecified; I25.10 Atherosclerotic heart disease of native coronary artery without angina pectoris; J44.9 Chronic obstructive pulmonary disease, unspecified; Z86.73 Personal history of transient ischemic attack (TIA), and cerebral infarction without residual deficits; R32 Unspecified urinary incontinence; R35.0 Frequency of micturition; F41.9 Anxiety disorder, unspecified; H54.7 Unspecified visual loss; H91.90 Unspecified hearing loss, unspecified ear; F31.9 Bipolar disorder, unspecified; F20.9 Schizophrenia, unspecified; Z79.02 Long term (current) use of antithrombotics/antiplatelets; Z79.51 Long term (current) use of inhaled steroids; Z79.52 Long term (current) use of systemic steroids; Z79.899 Other long term (current) drug therapy
CPT/HCPCS: 93971; 99283; 99284; A9270

== ENCOUNTER 2021-04-18 22:13 | Outpatient (CLI) | payer MEDICARE, MEDICAID | END 2021-04-18 22:14 | disposition critical access hospital (66) | LOC: EMS 22:13 | DX: R06.00 Dyspnea, unspecified (principal) | CPT/HCPCS: A0425; A0427 ==

== ENCOUNTER 2021-04-18 22:35 | Emergency (ER) | payer MEDICARE, MEDICAID ==
--- NOTE | 2021-04-18 22:42 | ED Physician Documentation ---
PD HPI DYSPNEA - Stated complaint Stated Complaint: SOA, COPD - History obtained from History obtained from: Patient (limited HPI/ROS due to severe dyspnea (initially unable to provide any information due to severe dyspnea; HPI and ROS entries below are combination of information from EMS report as well as some information patient was able to provide later in ED stay after improvement)) - History of Present Illness Timing - onset: Today (tonight) Timing - details: Abrupt onset Improved by: O2, Inhaler/neb, Other (minimal improvement en route) Associated symptoms: Cough, Wheezing, Diaphoresis. No: Fever, Chest pain / discomfort Similar symptoms before: Diagnosis (COPD) Recently seen: Not recently seen - Additional information Additional information: BIBA for dyspnea. She is a resident living at [facility]. EMS arrived to find patient severely dyspneic with pulse ox in the 60s, only improved to 70s with 100% NRB, duoneb, IV solu-medrol. Review of Systems Constitutional: denies: Fever (febrile later in ED stay, but no report of recent fever) Cardiac: denies: Chest pain / pressure Respiratory: reports: Dyspnea, Cough, Wheezing. denies: Hemoptysis GI: reports: Vomiting (later in stay, patient says she had emesis tonight immediately preceding the dyspnea). 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 : Incontinence, Frequency HEENT: Chronic vision loss, Chronic hearing loss Psych: Depression, Anxiety, Bipolar disorder, Schizophrenia Musculoskeletal: Chronic back pain Derm: Herpes zoster, Other - Past Surgical History Past Surgical History: Yes General: Cholecystectomy Cardiovascular: Angioplasty - Present Medications Home Medications: Ambulatory Orders Medication Instructions Recorded Confirmed Clopidogrel [Plavix] 75 mg PO DAILY 12/12/12 04/19/21 Escitalopram [Lexapro] 10 mg PO DAILY 12/12/12 04/19/21 guaiFENesin [Guaifenesin] 200 mg PO Q6H PRN 08/17/16 02/23/21 Acetaminophen 650 mg PO Q6H PRN 08/02/17 04/19/21 Albuterol Sulf [Ventolin Hfa 2 puffs INH Q3H PRN 08/02/17 04/19/21 Inhaler] Budesonide [Pulmicort Flexhaler] 2 puffs INH BID 08/02/17 04/19/21 Polyvinyl Alcohol [Artificial 1 drops EACHEYE BID 08/02/17 02/23/21 Tears] Bamuz-N-Zxusswymacyla [Beanaid] 150 unit PO DAILY 06/25/20 04/19/21 Famotidine [Pepcid] 20 mg DAILY 06/25/20 02/23/21 Ferrous Sulfate 325 mg PO DAILY 06/25/20 02/23/21 Fluticasone [Flonase] 1 sprays MATT BID 06/25/20 02/23/21 Loperamide HCl [Imodium A-D] 2 mg PO DAILY PRN 06/25/20 02/23/21 Loratadine [Allergy Relief] 10 mg PO DAILY 06/25/20 02/23/21 Meloxicam [Mobic] 7.5 mg PO BID PRN #10 tablet 06/25/20 12/17/20 predniSONE [Deltasone] 2.5 mg PO DAILY 06/25/20 02/23/21 Olopatadine HCl [Pataday Once 2.5 ml OP DAILY 12/17/20 02/23/21 Daily Relief] Apixaban [Eliquis] 2.5 mg PO BID #60 tablet 12/26/20 04/19/21 Atorvastatin [Lipitor] 40 mg PO QPM #30 tablet 12/26/20 04/19/21 Metoprolol Succinate [Toprol Xl] 100 mg PO BID #60 tablet 12/26/20 02/23/21 Miconazole Vaginal Cream 1 applic VG QPM 7 Days #1 tu 12/26/20 [Monistat-7] Apixaban [Eliquis] 1 tab PO DAILY 02/23/21 04/19/21 Budesonide [Pulmicort] 2 puffs PO BID 02/23/21 04/19/21 Escitalopram [Lexapro] 1 tab PO DAILY 02/23/21 04/19/21 Gabapentin [Neurontin] 1 tab PO DAILY 02/23/21 02/23/21 - Allergies Allergies/Adverse Reactions: Allergies Allergy/AdvReac Type Severity Reaction Status Date / Time levofloxacin [From Levaquin] Allergy Severe Unknown Verified 04/19/21 03:25 perfume Allergy Unknown Verified 04/19/21 03:25 metals gold silver Allergy Unknown Uncoded 04/19/21 03:25 - Social History Does the pt smoke?: No Smoking Status: Never smoker Does the pt drink ETOH?: No Does the pt have substance abuse?: No - Immunizations Immunizations are current?: Yes - POLST Patient has POLST: Yes PD ED PE NORMAL - Vitals Vital signs reviewed: Yes - General General: Well developed/nourished, Other (severe respiratory distresss on arrival, gasping, not following commands, grunting respirations) - HEENT HEENT: Other (parched mucous membranes) - Neck Neck: Supple, no meningeal sign - Abdomen Abdomen: Soft, Non tender - Derm Derm: Other (pale, diaphoretic) - Neuro Eye Opening: None Motor: Localizes to Pain Verbal: Incomprehensible GCS Score: 8 PD ED PE EXPANDED - Cardiac Cardiac: Tachy, Irregularly irregular - Respiratory Respiratory: Distress, Gasping, Decreased breath sounds Results - Vitals Vitals: Vital Signs - 24 hr 04/18/21 04/18/21 04/18/21 23:00 23:05 23:06 Temperature 36.6 C Heart Rate 126 H 121 H Respiratory 36 H 36 H Rate Blood Pressure 138/111 H 133/117 H O2 Saturation 62 L 04/18/21 04/19/21 04/19/21 23:36 00:30 01:00 Temperature 39.0 C H Heart Rate 114 H 124 H 117 H Respiratory 21 19 20 Rate Blood Pressure 142/90 H 125/59 L 135/91 H O2 Saturation 99 89 L 93 04/19/21 04/19/21 04/19/21 01:30 02:28 02:30 Temperature 36.3 C L 36.4 C L Heart Rate 140 H 127 H 140 H Respiratory 19 17 17 Rate Blood Pressure 146/90 H 140/95 H 125/94 H O2 Saturation 95 96 99 04/19/21 04/19/21 04/19/21 03:45 03:49 03:52 Temperature Heart Rate 137 H 110 H 107 H Respiratory 16 16 15 Rate Blood Pressure 135/97 H 115/75 128/79 O2 Saturation 92 92 92 04/19/21 03:56 Temperature Heart Rate 95 Respiratory 16 Rate Blood Pressure 128/75 O2 Saturation 91 L Oxygen O2 Source Room air Oxygen Flow Rate 1 - EKG (time done) No standard instances Rate: Rate (enter#) (112) Rhythm: Atrial fibrillation Barling: Normal, Posterior hemiblock Intervals: RBBB Ischemia: Normal ST segments - Labs Labs: Microbiology 04/19/21 01:07 Blood Culture (PCR) - Final Blood - Right Arm 04/19/21 01:20 Blood Culture - Preliminary Blood - Right Arm 04/19/21 01:07 Blood Culture - Preliminary Blood - Right Arm 04/18/21 23:20 Urine Culture - Preliminary Urine,Catheterized Laboratory Tests 04/18/21 04/18/21 04/18/21 22:23 22:57 22:57 WBC 17.6 H RBC 4.23 L Hgb 11.8 L Hct 40.5 L MCV 95.7 H MCH 27.9 MCHC 29.1 L RDW 16.2 H Plt Count 338 MPV 11.6 H Neut # (Auto) 13.8 H Lymph # (Auto) 2.3 Logan # (Auto) 1.2 H Eos # (Auto) 0.2 Baso # (Auto) 0.1 Absolute Nucleated RBC 0.00 Nucleated RBC % 0.0 PT 17.7 H INR 1.6 H APTT 34.0 H Sodium Potassium Chloride Carbon Dioxide Anion Gap BUN Creatinine Estimated GFR (MDRD) Glucose Lactic Acid Calcium Total Bilirubin AST ALT Alkaline Phosphatase Troponin I High Sens B-Natriuretic Peptide Total Protein Albumin Globulin Albumin/Globulin Ratio Lipase Urine Color Urine Clarity Urine pH Ur Specific Echo Urine Protein Urine Glucose (UA) Urine Ketones Urine Occult Blood Urine Nitrite Urine Bilirubin Urine Urobilinogen Ur Leukocyte Esterase Urine RBC Urine WBC Ur Squamous Epith Cells Urine Bacteria Ur Microscopic Review Urine Culture Comments Nasal Adenovirus (PCR) NOT DETECTED Nasal B. parapertussis DNA (PCR) NOT DETECTED Nasal Coronavir 229E PCR NOT DETECTED Nasal Coronavir HKU1 PCR NOT DETECTED Nasal Coronavir NL63 PCR NOT DETECTED Nasal Coronavir OC43 PCR NOT DETECTED Nasal Enterovir/Rhinovir PCR NOT DETECTED Nasal Influenza B PCR NOT DETECTED Nasal Influenza A PCR NOT DETECTED Nasal Parainfluen 1 PCR NOT DETECTED Nasal Parainfluen 2 PCR NOT DETECTED Nasal Parainfluen 3 PCR NOT DETECTED Nasal Parainfluen 4 PCR NOT DETECTED Nasal RSV (PCR) NOT DETECTED Nasal B.pertussis DNA PCR NOT DETECTED Nasal C.pneumoniae (PCR) NOT DETECTED Matt Human Metapneumo PCR NOT DETECTED Nasal M.pneumoniae (PCR) NOT DETECTED Nasal SARS-CoV-2 (PCR) NOT DETECTED 04/18/21 04/18/21 04/18/21 22:57 22:57 22:57 WBC RBC Hgb Hct MCV MCH MCHC RDW Plt Count MPV Neut # (Auto) Lymph # (Auto) Logan # (Auto) Eos # (Auto) Baso # (Auto) Absolute Nucleated RBC Nucleated RBC % PT INR APTT Sodium 142 Potassium 4.6 Chloride 100 L Carbon Dioxide 21 Anion Gap 21.0 H BUN 48 H Creatinine 3.0 H Estimated GFR (MDRD) 20 L Glucose 179 H Lactic Acid Calcium 9.3 Total Bilirubin 1.8 H AST 130 H ALT 88 H Alkaline Phosphatase 634 H Troponin I High Sens 87.9 H* B-Natriuretic Peptide 2766 H Total Protein 6.9 Albumin 3.1 L Globulin 3.8 Albumin/Globulin Ratio 0.8 L Lipase 75 H Urine Color Urine Clarity Urine pH Ur Specific Echo Urine Protein Urine Glucose (UA) Urine Ketones Urine Occult Blood Urine Nitrite Urine Bilirubin Urine Urobilinogen Ur Leukocyte Esterase Urine RBC Urine WBC Ur Squamous Epith Cells Urine Bacteria Ur Microscopic Review Urine Culture Comments Nasal Adenovirus (PCR) Nasal B. parapertussis DNA (PCR) Nasal Coronavir 229E PCR Nasal Coronavir HKU1 PCR Nasal Coronavir NL63 PCR Nasal Coronavir OC43 PCR Nasal Enterovir/Rhinovir PCR Nasal Influenza B PCR Nasal Influenza A PCR Nasal Parainfluen 1 PCR Nasal Parainfluen 2 PCR Nasal Parainfluen 3 PCR Nasal Parainfluen 4 PCR Nasal RSV (PCR) Nasal B.pertussis DNA PCR Nasal C.pneumoniae (PCR) Matt Human Metapneumo PCR Nasal M.pneumoniae (PCR) Nasal SARS-CoV-2 (PCR) 04/18/21 04/19/21 23:20 01:07 WBC RBC Hgb Hct MCV MCH MCHC RDW Plt Count MPV Neut # (Auto) Lymph # (Auto) Logan # (Auto) Eos # (Auto) Baso # (Auto) Absolute Nucleated RBC Nucleated RBC % PT INR APTT Sodium Potassium Chloride Carbon Dioxide Anion Gap BUN Creatinine Estimated GFR (MDRD) Glucose Lactic Acid 2.7 H Calcium Total Bilirubin AST ALT Alkaline Phosphatase Troponin I High Sens B-Natriuretic Peptide Total Protein Albumin Globulin Albumin/Globulin Ratio Lipase Urine Color YELLOW Urine Clarity CLEAR Urine pH 5.5 Ur Specific Echo 1.025 Urine Protein 30 H Urine Glucose (UA) NEGATIVE Urine Ketones NEGATIVE Urine Occult Blood MODERATE H Urine Nitrite NEGATIVE Urine Bilirubin NEGATIVE Urine Urobilinogen 0.2 (NORMAL) Ur Leukocyte Esterase MODERATE H Urine RBC 6-10 H Urine WBC >25 H Ur Squamous Epith Cells NONE SEEN Urine Bacteria Many H Ur Microscopic Review INDICATED Urine Culture Comments INDICATED Nasal Adenovirus (PCR) Nasal B. parapertussis DNA (PCR) Nasal Coronavir 229E PCR Nasal Coronavir HKU1 PCR Nasal Coronavir NL63 PCR Nasal Coronavir OC43 PCR Nasal Enterovir/Rhinovir PCR Nasal Influenza B PCR Nasal Influenza A PCR Nasal Parainfluen 1 PCR Nasal Parainfluen 2 PCR Nasal Parainfluen 3 PCR Nasal Parainfluen 4 PCR Nasal RSV (PCR) Nasal B.pertussis DNA PCR Nasal C.pneumoniae (PCR) Matt Human Metapneumo PCR Nasal M.pneumoniae (PCR) Nasal SARS-CoV-2 (PCR) - Rads (name of study) chest xray Radiology: Prelim report reviewed, See rad report PD MEDICAL DECISION MAKING - ED course Complexity details: reviewed old records, reviewed results, re-evaluated patient, considered differential, d/w patient ED course: placed on bipap shortly after ED arrival and over the ensuing hour, she exhibited gradual but steady improvement and was eventually weaned off of bipap. Her pulse ox would drop to 88-90% room air and she did not appear to have any obvious respiratory distress but said she was still having difficulty breathing and thus 2 liters NC placed with improvement in pulse ox to mid 90s. Unfortunately she subsequently spiked fever to 39. WBC 17.6 and lactate is 2.7. Urinalysis c/w UTI. She meets criteria for severe sepsis, given IV vancomycin, cefepime, and flagyl. There are no beds available at [facility]. I discussed the case with Dr. Parnell, hospitalist at , accepts transfer to Departure - Departure Disposition: 02 Transfer Acute Care Hosp Clinical Impression: Severe sepsis Condition: Stable Discharge Date/Time: 04/19/21 04:10
[2021-04-18] MEDS ORDERED: FUROSEMIDE 40 MG/4 ML VIAL IVP STA (22:50)
[2021-04-18 23:02] LABS: BASOPHILS # (AUTO) 0.1 10^3/uL (0.0-0.1); BASOPHILS % (AUTO) 0.3 %; EOSINOPHILS # (AUTO) 0.2 10^3/uL (0.0-0.7); HCT - HEMATOCRIT 40.5 % (42.0-52.0); HGB - HEMOGLOBIN 11.8 g/dL (14.0-18.0); LYMPHOCYTES # (AUTO) 2.3 10^3/uL (1.5-3.5); LYMPHOCYTES % (AUTO) 13.3 %; MEAN CORPUSCULAR HEMOGLOBIN 27.9 pg (27.0-31.0); MEAN CORPUSCULAR HGB CONC 29.1 g/dL (32.0-36.0); MEAN CORPUSCULAR VOLUME 95.7 fL (80.0-94.0); MEAN PLATELET VOLUME 11.6 fL (7.4-11.4); MONOCYTES # (AUTO) 1.2 10^3/uL (0.0-1.0); MONOCYTES % (AUTO) 6.7 %; NEUTROPHILS # (AUTO) 13.8 10^3/uL (1.5-6.6); NEUTROPHILS % (AUTO) 78.2 %; PLT - PLATELET COUNT 338 10^3/uL (130-450); RED BLOOD COUNT 4.23 10^6/uL (4.70-6.10); RED CELL DISTRIBUTION WIDTH 16.2 % (12.0-15.0); WHITE BLOOD COUNT 17.6 x10^3/uL (4.8-10.8)
[2021-04-18 23:09] LABS: INR 1.6 (0.8-1.2); PT - PROTHROMBIN TIME 17.7 secs (9.9-12.6)
[2021-04-18 23:14] LABS: ALBUMIN 3.1 g/dL (3.2-5.5); ALBUMIN/GLOBULIN RATIO 0.8 (1.0-2.2); BILIRUBIN,TOTAL 1.8 mg/dL (0.2-1.0); CALCIUM 9.3 mg/dL (8.5-10.3); POTASSIUM 4.6 mmol/L (3.5-5.0); TOTAL PROTEIN 6.9 g/dL (6.7-8.2)
[2021-04-18 23:26] LABS: BILIRUBIN,URINE NEGATIVE (NEGATIVE); GLUCOSE, URINE (UA) NEGATIVE (NEGATIVE); KETONES,URINE (UA) NEGATIVE (NEGATIVE); LEUKOCYTE ESTERASE, URINE MODERATE (NEGATIVE); NITRITE,URINE NEGATIVE (NEGATIVE); OCCULT BLOOD,URINE MODERATE (NEGATIVE); PH,URINE 5.5 PH (5.0-7.5); PROTEIN,URINE 30 mg/dL (NEGATIVE); UROBILINOGEN,URINE 0.2 (NORMAL) E.U./dL (NORMAL)
[2021-04-18 23:30] LABS: CLARITY,URINE CLEAR (CLEAR)
[2021-04-18 23:38] LABS: BACTERIA,URINE Many /HPF (None Seen); SQUAMOUS EPITHELIAL CELL,UR NONE SEEN (<= Few); WBC,URINE >25 /HPF (0-5)
--- NOTE | 2021-04-18 23:53 | XRAY Report ---
PROCEDURE: Chest 1 View X-Ray INDICATIONS: chest pain TECHNIQUE: One view of the chest was acquired. COMPARISON: Chest radiograph dated 12/30/2020 FINDINGS: Surgical changes and devices: Surgical clips projecting the right neck. Lungs and pleura: No pleural effusions or pneumothorax. Scattered subsegmental scarring/atelectasi s. No acute consolidation. Mediastinum: Mediastinal contours appear normal. Heart size is normal. Bones and chest wall: No suspicious bony lesions. Overlying soft tissues appear unremarkable. IMPRESSION: Scattered subsegmental scarring/atelectasis. No acute consolidation. Reviewed by: Fredy Hammer MD on 04/18/2021 11:52 PM PDT Approved by: Fredy Hammer MD on 04/18/2021 11:52 PM PDT Station ID: [id number]
[2021-04-19 00:20] LABS: B. PARAPERTUSSIS- RESP PCR PAN NOT DETECTED; B. PERTUSSIS- RESP PCR PANEL NOT DETECTED; C. PNEUMONIAE- RESP PCR PANEL NOT DETECTED; CORONAVIRUS 229E-RESP PCR NOT DETECTED; CORONAVIRUS HKU1-RESP PCR NOT DETECTED; CORONAVIRUS NL63-RESP PCR NOT DETECTED; CORONAVIRUS OC43-RESP PCR NOT DETECTED; HUMAN METAPNEUMOVIRUS NOT DETECTED; INFLUENZA A- RESP PCR PANEL NOT DETECTED; INFLUENZA B - RESP PCR PANEL NOT DETECTED; M. PNEUMONIAE- RESP PCR PANEL NOT DETECTED; PARAINFLUENZA VIRUS 1 NOT DETECTED; PARAINFLUENZA VIRUS 2 NOT DETECTED; PARAINFLUENZA VIRUS 3 NOT DETECTED; PARAINFLUENZA VIRUS 4 NOT DETECTED; RHINOVIRUS/ENTEROVIRUS NOT DETECTED; RSV- RESP PCR PANEL NOT DETECTED; SARS-CoV-2 -RESP PCR PANEL NOT DETECTED
[2021-04-19] MEDS ORDERED: ACETAMINOPHEN 325 MG TABLET PO STA (01:01)
[2021-04-19] MEDS ORDERED: CEFEPIME 2 GM in SODIUM CHLORIDE 0.9% MINIBAG 100 ML IV STA (01:04)
[2021-04-19] MEDS ORDERED: metroNIDAZOLE 500 MG/100 ML 500 MG/100 ML BAG IV STA (01:04)
[2021-04-19] MEDS ORDERED: VANCOMYCIN INJ 1.5 GM in SODIUM CHLORIDE 0.9% 500 ML IV STA (01:04)
[2021-04-19] MEDS ORDERED: SODIUM CHLORIDE 0.9% 1,000 ML IV STA (01:25)
[2021-04-19] MEDS ORDERED: VANCOMYCIN 1 GM VIAL ONE (02:03)
[2021-04-19] MEDS ORDERED: diltiaZEM INJ 5 MG/ML VIAL IVP STA (03:40)
[2021-04-19 03:56] VITALS: BP 128/75
== END 2021-04-19 04:10 | disposition short-term general hospital (02) ==
LOC: ED 22:35
DX: A41.9 Sepsis, unspecified organism (principal); R65.20 Severe sepsis without septic shock; R06.03 Acute respiratory distress; J44.9 Chronic obstructive pulmonary disease, unspecified; Z20.822 Contact with and (suspected) exposure to COVID-19; I10 Essential (primary) hypertension; I48.91 Unspecified atrial fibrillation; I45.2 Bifascicular block; Z79.01 Long term (current) use of anticoagulants; Z79.02 Long term (current) use of antithrombotics/antiplatelets
CPT/HCPCS: 36415; 51702; 71045; 80053; 81001; 83605; 83690; 83880; 84484; 85025; 85610; 85730; 87040; 87077; 87086; 87150; 87181; 87631; 93005; 96365; 96366; 96368; 96375; 99285; A9270; J3370; 0202U; 81003

== ENCOUNTER 2021-04-19 04:14 | Outpatient (CLI) | payer MEDICARE, MEDICAID | END 2021-04-19 04:15 | disposition short-term general hospital (02) | LOC: EMS 04:14 | PROVIDERS: ATTEND Emergency Medicine | DX: A41.9 Sepsis, unspecified organism (principal); R06.00 Dyspnea, unspecified; R41.0 Disorientation, unspecified | CPT/HCPCS: A0425; A0426 ==